=== PATIENT | female | born 1980 | race Caucasian/White ===

== ENCOUNTER → 2017-05-14 12:30 | Outpatient (CLI) | payer SELFPAY ==
[2017-05-14 14:01] LABS: Vitamin D,25 Hydroxy 19.1 ng/mL (19.95-100.01)
[2017-05-14 14:16] LABS: Thyroid Stim Hormone (TSH) 1.04 uIU/mL (0.358-3.74)
== END ==
PROVIDERS: Visit Provider Obstetrics & Gynecology
DX: R53.82 Chronic fatigue, unspecified (principal)
CPT/HCPCS: 36415; 82306; 84443

== ENCOUNTER → 2017-05-20 12:40 | Outpatient (CLI) | payer SELFPAY ==
--- NOTE | 2017-05-20 12:44 | HPBI_ITS ---
MAMMOGRAPHY - BILATERAL DIAGNOSTIC REASON FOR EXAM: Female, 37 years old. A multiple left excisional breast biopsy. Fullness of the lateral aspect of the left breast. PERTINENT HISTORY: Non-contributory. TECHNIQUE: Digital bilateral breast alissa (3D mammographic acquisition) in the CC and MLO projections. 2-D mediolateral oblique (MLO) and craniocaudad (CC) views of both breasts were obtained. CAD: Full Field Digital Mammography with Computer Added Detection was performed. COMPARISON: Comparison is made with prior outside examination dated February 07, 2015. FINDINGS: Breast Composition: The breasts are extremely dense, which lowers the sensitivity of mammography. There are no dominant masses or suspicious calcifications. No other significant abnormalities are identified. There has been no significant change since the prior study. HPBI/DIAG MAMM W/CAD, BILAT IMPRESSION: Stable bilateral diagnostic mammogram. With the patient's history of pain of the left breast, correlation with ultrasound is recommended. ASSESSMENT CATEGORY: BIRADS Category 0: Incomplete. Need additional imaging evaluation. A letter regarding these results will be sent to the patient by the facility within 30 days. Approximately 10% of breast cancers are not detected by mammography. A normal mammogram should not delay biopsy of a clinically suspicious abnormality. Electronically Signed: Carlos Christine MD at 20:11 EST Tel [phone], Service support ,
--- NOTE | 2017-05-20 12:44 | US_ITS ---
STUDY: ULTRASOUND BREAST - LEFT REASON FOR EXAM: Female, 37 years old. Palpable lump left breast. The patient is presently nursing. TECHNIQUE: Axial and longitudinal images of the LEFT breast were performed with a high resolution ultrasound transducer. COMPARISON: Comparison is made with prior mammograms performed earlier today. FINDINGS: LEFT Breast: The lateral aspect of the breast was examined by ultrasound. No solid or cystic mass lesion is seen. US/Breast Limited Unilateral IMPRESSION: Unremarkable sonographic examination of the left breast. ASSESSMENT CATEGORY: BIRADS Category 1: Negative. A letter regarding these results will be sent to the patient by the facility within 30 days. Electronically Signed: Carlos Christine MD at 19:40 EST Tel [phone], Service support ,
== END ==
PROVIDERS: Visit Provider Obstetrics & Gynecology
DX: N63.20 Unspecified lump in the left breast, unspecified quadrant (principal); N64.4 Mastodynia
CPT/HCPCS: 76642; 77062; 77066; G0279

== ENCOUNTER 2017-10-28 09:20 | Day surgery (SDC) | payer OTHER, SELFPAY ==
[2017-10-28 09:33] VITALS: BP 111/52; PULSE 93; RESP 14; TEMP 37; O2SAT 100; BMI 18.6
[2017-10-28 09:39] LABS: Internal QC Validated? YES +Cl - CLEAR BKGD; Pregnancy, Urine Negative Negative
--- NOTE | 2017-10-28 10:15 | COLBX_PTH ---
PATIENT: ASHLEY JEAN-BAPTISTE LOC: EN U#:[id number] AGE/SX: 37/F ROOM: RE10/28/[address]: Dr. Avelino Vaca MD : 1980 BED: DIS: 10/28/2017 SPEC #: [id number] RECD: 10/28/17 10:34 STATUS: ELPIDIO JONNY #: [id number] EMANUEL: 10/28/17 10:[address]: Avelino Vaca DEPT: SURGICAL PATHOLOGY RECD BY: Dawson Lee ENTERED: 10/28/17 12:08 SP TYPE: COLON BX OT DR: Dr. Suellen Johnson MD Tissues: COLON BIOPSY Procedures: Surgery Specimen Level IV HEADER OPERATION: Colonoscopy PRE-OP DIAGNOSIS: Rectal discharge TISSUE SUBMITTED: Random colonic biopsy MICROSCOPIC DIAGNOSIS Colon, random biopsy: Fragments of colonic mucosa, no pathologic diagnosis. SJ:sebastien 10/29/17 MICROSCOPIC DESCRIPTION Slides are reviewed. GROSS DESCRIPTION Received in fixative is one container labeled with the patient's name and designated random colonic biopsy. The specimen consists of multiple irregular fragments of light hernandes soft tissue that in aggregate measure 2 x 0.5 x 0.1 cm. The specimen is totally submitted in one cassette. / SJ:sebastien 10/28/17 TC:5 CPT: 51283
[2017-10-28 10:19] VITALS: BP 111/52; BP 89/61; PULSE 89; RESP 16; TEMP 36.7; O2SAT 99
--- NOTE | 2017-10-28 10:20 | PCM.OPRPT ---
Problem List (1) Rectal discharge Status: Acute Report of Operation Date of Procedure: 10/28/17 Pre-Operative Diagnosis: Mucus rectal discharge Post-Operative Diagnosis: Minimal scattered sigmoid diverticulosis. Grade 1-2 internal hemorrhoids. No gross active pathology Surgery/Procedure Performed:: Colonoscopy with random cold forcep biopsies Description of Surgical Findings:: Timeout and informed consent was obtained. 37-year-old female was taken to the endoscopy suite. She underwent monitored anesthesia care. Digital rectal exam performed. Normal external anus. Some mild grade 1-2 internal hemorrhoids. No mass lesions. Normal tone. Flexible colonoscope inserted the rectum advanced with tortuous sigmoid colon. The scope was then carefully and tediously advanced to the transverse colon into the ascending colon. With some slight transabdominal pressure the scope was advanced to the cecum. The cecum ileocecal valve area was nicely achieved. Bowel prep was good there was still liquid stool but that could be easily aspirated. The cecum ileocecal valve was nicely inspected the scope was carefully withdrawn from the ascending transverse and descending colon. The sigmoid colon was notable for some very minimal scattered diverticulosis. There is no evidence of acute inflammation. There is no evidence of any mucosal changes or discharge throughout the entire exam. The scope was retroflexed within the rectum mild internal hemorrhoidal changes noted but no active inflammation. It is of note that as the scope was withdrawn throughout the colon random colonic biopsies were obtained with cold forceps. Excess fluid and air was aspirated free the procedure was completed with the patient tolerating it well. Impression Minimal sigmoid diverticulosis. Grade 1-2 internal hemorrhoids. No evidence for etiology to rectal mucus discharge. Random colonic biopsies pending. Patient has not had a previous colonoscopy next screening colonoscopy would be due at age 52. Scope was inserted at 1002. The cecum was reached at 1008. The procedure was completed at 1014. Avelino Vaca M.D., F.A.C.S., cc: Dr. Suellen Johnson
[2017-10-28 10:25] VITALS: BP 111/52; BP 98/68; PULSE 87; RESP 16; O2SAT 100
[2017-10-28 10:29] VITALS: BP 101/64; BP 111/52; PULSE 89; RESP 16; O2SAT 100
[2017-10-28 10:36] VITALS: BP 111/52; BP 97/77; PULSE 92; RESP 16; O2SAT 100
[2017-10-28 10:47] VITALS: BP 111/52
== END 2017-10-28 11:24 | disposition home or self-care (01) ==
LOC: EN 09:21 → AC 09:21
PROVIDERS: Anesthesiology; Family Provider Family Medicine; PCP Family Medicine; Visit Provider Surgery
PROC: 0DJD8ZZ Inspection of Lower Intestinal Tract, Via Natural or Artificial Opening Endoscopic (ICD-10-PCS; CPT 45378; principal; 2017-10-28 10:10)
DX: K57.30 Diverticulosis of large intestine without perforation or abscess without bleeding (principal); K64.1 Second degree hemorrhoids; R19.8 Other specified symptoms and signs involving the digestive system and abdomen
CPT/HCPCS: 45380; 81025; 88305; J7120

== ENCOUNTER → 2018-01-06 14:12 | Outpatient (CLI) | payer OTHER, SELFPAY ==
--- NOTE | 2018-01-06 14:28 | BI_ITS ---
REASON FOR EXAM: Female, 37 years old. Right breast lump since Friday. PERTINENT HISTORY: Left breast excisional biopsy 2009, benign. May 2017 left breast palpable lump. Patient states left breast always feels larger and more lumpy than right breast. Last breast-feeding July 2017. Patient refused left mammogram same day per [employer]. TECHNIQUE: Digital examination. Mediolateral oblique (MLO) and craniocaudad (CC) views of both breasts were obtained. CAD: CAD performed COMPARISON: Mammogram 05/20/2017. FINDINGS: Breast Composition: The breasts are extremely dense, which lowers the sensitivity of mammography. There are no new left mammogram dominant masses or suspicious microcalcification cluster noted. No new asymmetric density, architecture distortion, adenopathy, skin thickening or nipple retraction noted. Left breast upper outer quadrant anterior third spot compression CC/MLO views including radiopaque triangle for the area of clinical concern show no focal mass density or abnormal microcalcification cluster. IMPRESSION: Incomplete mammogram, additional right breast targeted ultrasound imaging is recommended in the area of clinical concern. ASSESSMENT CATEGORY: BIRADS Category 0: Incomplete. Need additional imaging evaluation. A letter regarding these results will be sent to the patient by the facility within 30 days. FOLLOW UP RECOMMENDATION: Additional imaging as described above. Negative mammographic results should not deter biopsy as a palpable lesion if present should be followed based on clinical grounds and biopsy performed if clinically persistent for 3 months or increasing size. Approximately 10% of breast cancers are not detected by mammography. A normal mammogram should not delay biopsy of a clinically suspicious abnormality. Dense breast tissue may obscure neoplasm. Electronically Signed: Avelino Kinney, at 17:08 EDT Tel , Service support , BI/DIAG MAMM W/CAD, [facility]
--- NOTE | 2018-01-06 15:08 | US_ITS ---
STUDY: ULTRASOUND BREAST - RIGHT REASON FOR EXAM: Female, 37 years old. Left breast excisional biopsy 2009, benign. May 2017 left breast palpable lump. Patient states left breast always feels larger and more lumpy than right breast. Last breast-feeding July 2017. Patient refused left mammogram same day per [employer]. TECHNIQUE: Axial and longitudinal images of the RIGHT breast were performed with a high resolution ultrasound transducer. COMPARISON: No prior right breast ultrasound imaging available. Correlation prior same day mammogram 01/06/2018 and 05/20/2017. FINDINGS: RIGHT Breast: There is a lesion in the upper Outer quadrant. The lesion measures 1.0 x 1.0 x 0.5 cm in size. Clock notation: 11 o'clock position. Distance from nipple: 3.0 cm. Posterior Enhancement: No Posterior Shadowing: No Margins: Indistinct but smooth Echogenicity: Heterogeneous probably hypoechoic Compression effect on Shape: No change US/Breast Limited Unilateral IMPRESSION: Probably benign superficial right breast hypoechoic lesion as described. Recommend right mammogram and right breast targeted ultrasound repeat in 6 months for short-term interval follow-up of probably benign findings. If the patient is unduly concerned, MRI breasts may be more helpful to exclude any pathology in this patient with very dense breasts. ASSESSMENT CATEGORY: BIRADS Category 3: Probably Benign - Short-Interval Follow-up Suggested. A letter regarding these results will be sent to the patient by the facility within 30 days. Negative mammographic results should not deter biopsy as a palpable lesion if present should be followed based on clinical grounds and biopsy performed if clinically persistent for 3 months or increasing size. Approximately 10% of breast cancers are not detected by mammography. A normal mammogram should not delay biopsy of a clinically suspicious abnormality. Dense breast tissue may obscure neoplasm. Electronically Signed: Avelino Kinney, at 17:27 EDT Tel , Service support ,
== END ==
PROVIDERS: Family Provider Family Medicine; PCP Family Medicine; Visit Provider Obstetrics & Gynecology
DX: N63.10 Unspecified lump in the right breast, unspecified quadrant (principal)
CPT/HCPCS: 76642; 77061; 77065; G0279

== ENCOUNTER → 2018-04-29 09:31 | Outpatient (CLI) | payer OTHER, SELFPAY ==
[2018-04-24 14:00] VITALS: BMI 19.2
--- NOTE | 2018-04-29 09:35 | US_ITS ---
STUDY: ULTRASOUND BREAST - LEFT REASON FOR EXAM: Female, 38 years old. Palpable lump left breast. TECHNIQUE: Axial and longitudinal images of the LEFT breast were performed with a high resolution ultrasound transducer. COMPARISON: Comparison is made with prior mammogram done earlier in the day as well as prior sonogram of the left breast dated May 20, 2017. FINDINGS: LEFT Breast: The inferior portion of the breast was examined by ultrasound. There is homogeneous fibroglandular tissue. No solid or cystic mass lesion is seen. US/Breast Limited Unilateral IMPRESSION: Unremarkable sonogram of the left breast. ASSESSMENT CATEGORY: BIRADS Category 1: Negative. A letter regarding these results will be sent to the patient by the facility within 30 days. Electronically Signed: Carlos Christine MD at 11:01 EST , Service support ,
--- NOTE | 2018-04-29 09:35 | BI_ITS ---
MAMMOGRAPHY - UNILATERAL DIAGNOSTIC: LEFT BREAST REASON FOR EXAM: Female, 38 years old. Left breast thickening at the 7:00 position of the breast. Remote left excisional breast biopsy. PERTINENT HISTORY: Non-contributory. TECHNIQUE: Digital unilateral breast alissa (3D mammographic acquisition) in the CC and MLO projections. 2-D mediolateral oblique (MLO) and craniocaudad (CC) views of both breasts were obtained. CAD: Full Field Digital Mammography with Computer Added Detection was performed. COMPARISON: Comparison is made with prior mammogram dated January 06, 2018 and May 20, 2017. FINDINGS: Breast Composition: The breasts are extremely dense, which lowers the sensitivity of mammography. There are no dominant masses or suspicious calcifications. No other significant abnormalities are identified. There has been no significant change since the prior study. BI/DIAG MAMM W/CAD, UNILAT IMPRESSION: Stable unilateral diagnostic mammogram. With the patient's history of thickening in the left breast, correlation with ultrasound is recommended. ASSESSMENT CATEGORY: BIRADS Category 0: Incomplete. Need additional imaging evaluation. A letter regarding these results will be sent to the patient by the facility within 30 days. Approximately 10% of breast cancers are not detected by mammography. A normal mammogram should not delay biopsy of a clinically suspicious abnormality. Electronically Signed: Carlos Christine MD at 11:02 EST , Service support ,
== END ==
PROVIDERS: Family Provider Family Medicine; PCP Family Medicine; Referring Provider Obstetrics & Gynecology; Visit Provider Obstetrics & Gynecology
DX: N63.20 Unspecified lump in the left breast, unspecified quadrant (principal)
CPT/HCPCS: 76642; 77061; 77065; G0279

== ENCOUNTER → 2018-07-31 09:29 | Outpatient (CLI) | payer OTHER, SELFPAY ==
[2018-04-24 14:00] VITALS: BMI 19.2
--- NOTE | 2018-07-31 09:58 | US_ITS ---
STUDY: ULTRASOUND BREAST - RIGHT REASON FOR EXAM: Female, 38 years old. Right breast lump in the upper outer quadrant. TECHNIQUE: Axial and longitudinal images of the RIGHT breast were performed with a high resolution ultrasound transducer. COMPARISON: January 06, 2018. Images are not available. Report of examination only is available for review. FINDINGS: There is a 1.0 x 1.3 x 0.5 cm hypoechoic, ovoid focus in the right breast 11:00 position as identified 3 cm from the nipple. This lesion most likely corresponds to the lesion seen on the comparison sonography and is slightly larger as on comparison by report it measured 1.0 x 1.0 x 0.5 cm. There is no posterior enhancement. There is no posterior shadowing. The margins are relatively indistinct. There is no change with compression. This lesion is wider than it is tall. This finding is avascular. Adjacent to this is a existing lump there is a new, 1.0 x 1.0 x 0.4 cm ovoid hypoechoic solid mass that probably corresponds to the new palpable lump. This finding is identified at 11:00 position 4 cm from the nipple. There is no posterior enhancement. There is no posterior shadowing. This finding is avascular US/Breast Limited Unilateral IMPRESSION: The solid hypoechoic lesion in the 11:00 position identified 3 cm from the nipple is slightly larger currently when compared to report of comparison. Additionally, the margins are partially indistinct and angulated. Further evaluation with ultrasound-guided core biopsy is recommended. The new lump is seen sonographically adjacent to the existing and known mass but is at the 11:00 position located 4 cm from the nipple. The margins of this lesion are also partially indistinct with angulation. Further evaluation with ultrasound-guided core biopsy is recommended. ASSESSMENT CATEGORY: BIRADS Category 4A: Low suspicion for malignancy. A letter regarding these results will be sent to the patient by the facility within 30 days. Electronically Signed: Jaylen Ray MD at 11:42 EDT , Service support ,
--- NOTE | 2018-07-31 09:58 | BI_ITS ---
MAMMOGRAPHY - UNILATERAL DIAGNOSTIC: RIGHT BREAST REASON FOR EXAM: Female, 38 years old. New right breast mass in the anterior upper outer quadrant. Previously seen for lump in the subjacent region. PERTINENT HISTORY: Non-contributory. TECHNIQUE: Digital examination. Mediolateral oblique (MLO) and craniocaudad (CC) views of the breast were obtained. CAD: CAD was performed on this study. COMPARISON: January 06, 2018. FINDINGS: Breast Composition: The breasts are extremely dense, which lowers the sensitivity of mammography. There are no dominant masses or suspicious calcifications. No other significant abnormalities are identified. BI/DIAG MAMM W/CAD, UNILAT IMPRESSION: Stable unilateral diagnostic mammogram. No mass or architectural distortion adjacent or subjacent to the palpable abnormality markers. Sonography will be performed today for further evaluation. ASSESSMENT CATEGORY: BIRADS Category 0: Incomplete. Need additional imaging evaluation. A letter regarding these results will be sent to the patient by the facility within 30 days. FOLLOW-UP RECOMMENDATION: Ultrasound recommended. (I) Approximately 10% of breast cancers are not detected by mammography. A normal mammogram should not delay biopsy of a clinically suspicious abnormality. Electronically Signed: Jaylen Ray MD at 11:33 EDT , Service support ,
== END ==
PROVIDERS: Referring Provider Obstetrics & Gynecology; Visit Provider Obstetrics & Gynecology
DX: N63.11 Unspecified lump in the right breast, upper outer quadrant (principal)
CPT/HCPCS: 76642; 77065

== ENCOUNTER → 2018-08-12 13:41 | Outpatient (CLI) | payer OTHER, SELFPAY ==
[2018-08-04 09:35] VITALS: BMI 19.1
--- NOTE | 2018-08-12 | IMM_PTH ---
PATIENT: ASHLEY JEAN-BAPTISTE LOC: OPUS U#:[id number] AGE/SX: 44/F ROOM: RE08/12/[address]: Dr. Sumanth Maguire MD : 1980 BED: DIS: SPEC #: [id number] RECD: 08/14/18 14:18 STATUS: ELPIDIO REQ #: [id number] EMANUEL: 08/12/18 00:[address]: Sumanth Maguire DEPT: IMMUNOHISTOCHEMISTRY RECD BY: Diane Alicea ENTERED: 08/14/18 14:18 SP TYPE: IMMUNO OTHR DR: No Primary Care Phys Tissues: Right breast, NOS Procedures: Calponin-1(initial) P40 (add) PHYSICIAN & INSTITUTION [place] [id number] SPECIMEN INFORMATION: Tissue Source: Right breast biopsy Clinical Info: right breast mass Specimen Number: [id number] CPT code: 50919, 22707 METHODOLOGY: Deparaffinized sections of prefer/formalin-fixed tissue or PAP/DQ stained slides are incubated with monoclonal/polyclonal antibodies/oligonucleotide probes. Localization is made via biotin free immunoperoxidase method. Appropriate controls are performed and reacted as expected. Results on target cell population are indicated in the following table: RESULTS: ANTIBODY / CLONE RESULT P40 (BC28) positive with appropriate control Calponin-1 (FY855M) positive with appropriate control These tests were developed and their performance characteristics determined by [facility]. They may not have been cleared or approved by the U.S. Food and Drug Administration. The FDA has determined that such clearance or approval is not necessary. INTERPRETATION: Right breast, biopsy: The results of immunohistochemistry support a benign proliferative process. CE:sebastien 08/14/18
--- NOTE | 2018-08-12 | BRBX_PTH ---
PATIENT: ASHLEY JEAN-BAPTISTE LOC: OPUS U#:[id number] AGE/SX: 44/F ROOM: RE08/12/[address]: Dr. 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 CE:sebastien 08/14/18 COMMENT Immunohistochemistry ([id number]) supports the above diagnosis. Case has been reviewed in consultation with Dr. Amado who concurs with the above diagnosis. IDC:AM MICROSCOPIC DESCRIPTION Slides are reviewed. GROSS DESCRIPTION Received is one container labeled with the patient's name and not further designated. The specimen consists of a single core of hernandes tissue measuring 1 cm in length and 0.1 cm in average diameter. The specimen is totally submitted in one cassette. / AM:sebastien 08/13/18 TC:2 CPT: 33163
--- NOTE | 2018-08-12 13:44 | US_ITS ---
STUDY: ULTRASOUND BREAST - RIGHT REASON FOR EXAM: Female, 38 years old. Ultrasound guided breast biopsy. TECHNIQUE: Under direct sonographic guidance, the surgeon performed core biopsy of the 9.1 mm x 7.7 mm x 4.3 mm slightly irregular hypoechoic nodule at the 11:00 position of the breast. COMPARISON: None. FINDINGS: RIGHT Breast: The biopsy needle is seen within the suspected lesion. US/US Breast Biopsy 1st Lesion IMPRESSION: Successful ultrasound-guided core biopsy. ASSESSMENT CATEGORY: BIRADS Category 2: Benign. A letter regarding these results will be sent to the patient by the facility within 30 days. Electronically Signed: Carlos Christine, at 8:20 EDT , Service support ,
== END ==
PROVIDERS: Referring Provider Surgery; Visit Provider Surgery
DX: N60.81 Other benign mammary dysplasias of right breast (principal)
CPT/HCPCS: 19083; 88305; 88341; 88342

== ENCOUNTER → 2018-09-17 | Outpatient (CLI) | payer OTHER, SELFPAY ==
[2018-04-24 14:00] VITALS: BMI 19.2
[2018-08-04 09:35] VITALS: BMI 19.1
--- NOTE | 2018-09-17 14:00 | US_ITS ---
STUDY: ULTRASOUND OF THE FEMALE PELVIS REASON FOR EXAM: Female, 38 years old. Pain. LMP: September 11, 2018 TECHNIQUE: Transvaginal TECHNICAL QUALITY: Adequate. COMPARISON: None. FINDINGS: The uterus is anteverted and is in a midline position. The uterus measures 8.6 x 4.6 x 4.2 cm. Normal uterine cervix. The endometrium measures 2 mm in thickness, and is hyperechoic. There is no demonstrated endometrial mass. There is no demonstrated myometrial mass. I.U.D. - The patient does not have an I.U.D. The right ovary is visualized. The right ovary measures 3.0 x 2.1 x 2.0 cm. There is no right ovarian cyst or ovarian mass. There is no visualized right adnexal mass or complex lesion. There is normal arterial and normal venous vascularity. The left ovary is visualized. The left ovary measures 3.0 x 2.2 x 1.8 cm. There is no left ovarian cyst or ovarian mass. There is no visualized left adnexal mass or complex lesion. There is normal arterial and normal venous vascularity. There is mild fluid in the cul-de-sac. The pre void volume of the bladder was 394 ml. US/Pelvic (Non ) IMPRESSION: Normal female pelvis. Electronically Signed: Donta Hutchison MD at 9:58 EDT , Service support ,
--- NOTE | 2018-09-17 14:00 | US_ITS ---
STUDY: ULTRASOUND OF THE FEMALE PELVIS REASON FOR EXAM: Female, 38 years old. Pain. LMP: September 11, 2018 TECHNIQUE: Transvaginal TECHNICAL QUALITY: Adequate. COMPARISON: None. FINDINGS: The uterus is anteverted and is in a midline position. The uterus measures 8.6 x 4.6 x 4.2 cm. Normal uterine cervix. The endometrium measures 2 mm in thickness, and is hyperechoic. There is no demonstrated endometrial mass. There is no demonstrated myometrial mass. I.U.D. - The patient does not have an I.U.D. The right ovary is visualized. The right ovary measures 3.0 x 2.1 x 2.0 cm. There is no right ovarian cyst or ovarian mass. There is no visualized right adnexal mass or complex lesion. There is normal arterial and normal venous vascularity. The left ovary is visualized. The left ovary measures 3.0 x 2.2 x 1.8 cm. There is no left ovarian cyst or ovarian mass. There is no visualized left adnexal mass or complex lesion. There is normal arterial and normal venous vascularity. There is mild fluid in the cul-de-sac. The pre void volume of the bladder was 394 ml. US/Transvaginal Non- IMPRESSION: Normal female pelvis. Electronically Signed: Donta Hutchison MD at 9:58 EDT , Service support ,
== END | disposition home or self-care (01) ==
LOC: US 14:00
PROVIDERS: Family Provider Family Medicine; PCP Family Medicine; Referring Provider Obstetrics & Gynecology; Visit Provider Obstetrics & Gynecology
DX: R10.2 Pelvic and perineal pain (principal)
CPT/HCPCS: 76830; 76856; 93976

== ENCOUNTER → 2018-09-28 16:29 | Outpatient (CLI) | payer OTHER, SELFPAY ==
[2018-08-04 09:35] VITALS: BMI 19.1
[2018-09-28 16:31] LABS: Bacteria 0 SEEN /hpf (None Seen); Mucous, Urine 0 SEEN /hpf (<or=2+); Red Blood Cells-Urine 0 SEEN /hpf (0-5); White Blood Cells 0 SEEN /hpf (0-5)
[2018-09-28 17:50] LABS: Absolute Lymphocyte Count 2.62 X10^3/ul (0.83-4.51); Absolute Neutrophil Count 4.2 X10^3/uL (2.0-7.7); Basophil# 0.02 X10^3/uL; Basophil% 0.3 % (0-1); Eosinophil# 0.07 X10^3/uL; Eosinophils% 0.9 % (0-5); Hematocrit 40.7 % (37-47); Hemoglobin 13.4 g/dl (12.0-15.0); Lymphocyte # 2.62 X10^3/ul (4.0); Lymphocyte % 35.5 % (19-41); Mean Corp Hgb Conc 32.9 g/gl (32-36); Mean Corpuscular Hgb 28.9 pg (27.0-32.0); Mean Corpuscular Volume 87.7 fL (81-99); Mean Platelet Vol. 11.7 fl (6.2-12.0); Monocyte# 0.47 X10^3/uL; Monocyte% 6.4 % (0-10); Neutrophil # 4.19 X10^3/uL (2.7-7.7); Neutrophil % 56.9 % (47-70); Platelet Count 221 K/mm3 (150-450); RBC Distribution Width CV 12.7 % (11.6-14.6); RBC Distribution Width SD 40.7 fl (35.1-43.9); Red Blood Count 4.64 M/mm3 (4.2-5.4); White Blood Count 7.4 K/mm3 (4.4-11.0)
[2018-09-28 17:53] LABS: POSITIVE COUNT NO; POSITIVE DIFFERENTIAL NO; POSITIVE MORPHOLOGY NO
[2018-09-28 17:59] LABS: Color, Urine Yellow (Yellow); Glucose, Dipstick Normal (Normal); Ketone-Dipstick Negative (Negative); Leukocyte Esterase-Dipstick Negative /ul (Negative); Nitrite-Dipstick Negative (Negative); Occult Blood-Urine Negative /ul (Negative); Protein-Dipstick Negative (Negative); Urine Bilirubin Dipstick Negative (Negative); Urine Clarity Clear (Clear); Urine Urobilinogen Normal (Normal)
[2018-09-28 18:19] LABS: Anion Gap 8 (5-15); BUN 18 mg/dL (7-18); BUN/Creat Ratio 21.2 RATIO (10-20); Calcium,Total 9.4 mg/dL (8.5-10.1); Chloride 102 mmol/L (98-107); Creatinine, Serum 0.85 mg/dL (0.55-1.02); EST Glomerular Filtration Rate 80 mL/min (>60); Est Glom Filt Rate - Afr Amer 97 mL/min (>60); Glucose 84 mg/dL (74-106); Potassium 3.3 mmol/L (3.5-5.1); Sodium Level 141 mmol/L (136-145)
[2018-09-28 18:44] LABS: Squamous Epithelial Cells - UA 0-5 SEEN /hpf (5-10)
== END ==
PROVIDERS: Family Provider Family Medicine; PCP Family Medicine; Visit Provider Family Medicine
DX: R10.9 Unspecified abdominal pain (principal)
CPT/HCPCS: 36415; 80048; 81001; 85025

== ENCOUNTER → 2018-10-30 16:50 | Outpatient (CLI) | payer OTHER, SELFPAY ==
[2018-08-04 09:35] VITALS: BMI 19.1
--- NOTE | 2018-10-30 16:56 | CT_ITS ---
STUDY: CT ABDOMEN AND PELVIS WITH CONTRAST REASON FOR EXAM: Female, 38 years old. Right lower quadrant pain. RADIATION DOSAGE (If Supplied By Facility): CTDIvol = ( 7.15 ) mGy, DLP = ( 510.93 ) mGycm TECHNIQUE: Transaxial images were obtained from the dome of the diaphragm to the symphysis pubis with oral contrast. 80ML IV/Oral Isovue 300 was administered. Sagittal and coronal images were reconstructed. Individualized dose optimization techniques were used for this CT. COMPARISON: None. FINDINGS: The visualized lung bases are unremarkable. The visualized portions of the heart are within normal limits. Normal liver. Normal gallbladder and extrahepatic biliary system. Normal spleen. Normal pancreas. Normal bilateral adrenal glands. Normal right kidney. Normal left kidney. Normal visualized stomach. Normal small intestine. Normal colon. The appendix is visualized and appears normal. Normal abdominal aorta. Normal inferior vena cava. Normal retroperitoneum. Normal urinary bladder. Uterus is anteverted and tilted to the right. It is somewhat heterogenous in enhancement possibility of fibroids cannot BE completely ruled out. There is increased vascularity in both broad ligaments. There are follicles in both ovaries. There is no pelvic lymphadenopathy. No free air or free fluid is seen within the peritoneal cavity. Normal abdominal wall. Normal osseous structures. CT/Abdomen/Pelvis WITH Contrast IMPRESSION: 1. Normal appendix. 2. Heterogenous uterus with increased vascularity in the broad ligaments. Question pelvic congestion. 3. Bilateral ovarian follicles without mass or cyst. 4. No other evidence of intra-abdominal or pelvic abnormality. Electronically Signed: Vikas Santiago DO at 18:30 EDT Tel [phone], Service support ,
== END ==
PROVIDERS: Family Provider Family Medicine; PCP Family Medicine; Referring Provider Family Medicine; Visit Provider Family Medicine
DX: R10.31 Right lower quadrant pain (principal); R11.0 Nausea; R14.1 Gas pain
CPT/HCPCS: 74177; Q9967

== ENCOUNTER → 2018-11-11 14:00 | Outpatient (CLI) | payer OTHER, SELFPAY ==
[2018-08-04 09:35] VITALS: BMI 19.1
--- NOTE | 2018-11-11 14:02 | US_ITS ---
STUDY: ULTRASOUND TRANSVAGINAL CLINICAL: Female, 38 years old. Pelvic pain. TECHNIQUE: Transvaginal and transabdominal (Transvaginal imaging performed for enhanced visualization of uterus and endometrium, and posterior adnexal structures). COMPARISON: None. FINDINGS: Anteverted uterus, flexed slightly towards the right, measuring 10.5 x 6.6 x 4.7 cm. Normal myometrium. Somewhat prominent subserosal uterine veins. Endometrium 12 mm, normal echotexture. Nabothian cyst of the cervix. There is no free fluid. There is no adnexal mass or suspicious cyst. There is prominent vascularity of the adnexa bilaterally giving the impression of engorged adnexal veins. The right ovary measures 30 x 20 x 16 mm and the left ovary 21 23 x 13 mm. Each exhibits small facility follicles with normal vascularity. US/Transvaginal Non- IMPRESSION: Normal features of the myometrium, endometrium, ovaries. Prominent adnexal vessels, and prominent subserosal uterine vessels in a pattern that may reflect pelvic venous congestion. Electronically Signed: Raudel Salgado MD at 15:31 EDT Tel , Service support ,
--- NOTE | 2018-11-11 14:02 | US_ITS ---
STUDY: ULTRASOUND TRANSVAGINAL CLINICAL: Female, 38 years old. Pelvic pain. TECHNIQUE: Transvaginal and transabdominal (Transvaginal imaging performed for enhanced visualization of uterus and endometrium, and posterior adnexal structures). COMPARISON: None. FINDINGS: Anteverted uterus, flexed slightly towards the right, measuring 10.5 x 6.6 x 4.7 cm. Normal myometrium. Somewhat prominent subserosal uterine veins. Endometrium 12 mm, normal echotexture. Nabothian cyst of the cervix. There is no free fluid. There is no adnexal mass or suspicious cyst. There is prominent vascularity of the adnexa bilaterally giving the impression of engorged adnexal veins. The right ovary measures 30 x 20 x 16 mm and the left ovary 21 23 x 13 mm. Each exhibits small facility follicles with normal vascularity. US/Pelvic (Non ) IMPRESSION: Normal features of the myometrium, endometrium, ovaries. Prominent adnexal vessels, and prominent subserosal uterine vessels in a pattern that may reflect pelvic venous congestion. Electronically Signed: Raudel Salgado MD at 15:31 EDT Tel , Service support ,
== END ==
PROVIDERS: Family Provider Family Medicine; PCP Family Medicine; Referring Provider Obstetrics & Gynecology; Visit Provider Obstetrics & Gynecology
DX: R10.2 Pelvic and perineal pain (principal)
CPT/HCPCS: 76830; 76856; 93976

== ENCOUNTER → 2019-03-17 09:02 | Outpatient (CLI) | payer OTHER, SELFPAY ==
[2018-08-04 09:35] VITALS: BMI 19.1
--- NOTE | 2019-03-17 09:05 | BI_ITS ---
MAMMOGRAPHY - BILATERAL SCREENING REASON FOR EXAM: Female, 38 years old. Routine annual screening examination. PERTINENT HISTORY: Recent ultrasound-guided right breast biopsy. TECHNIQUE: Digital bilateral breast harpal (3D mammographic acquisition) in the CC and MLO projections. 2-D mediolateral oblique (MLO) and craniocaudad (CC) views of both breasts were obtained. CAD: Full Field Digital Mammography with Computer Added Detection was performed. COMPARISON: Comparison is made with prior mammogram dated July 31, 2018. FINDINGS: Breast Composition: The breasts are extremely dense, which lowers the sensitivity of mammography. There are no dominant masses or suspicious calcifications. A tissue clip marker is seen in the upper lateral aspect of the right breast. No other significant abnormalities are identified. There has been no significant change since the prior study. BI/SCREEN MAMM (CAD) W/HARPAL BILAT IMPRESSION: Stable bilateral screening mammogram. Yearly follow-up mammogram recommended. (A) ASSESSMENT CATEGORY: BIRADS Category 2: Benign. A letter regarding these results will be sent to the patient by the facility within 30 days. Approximately 10% of breast cancers are not detected by mammography. A normal mammogram should not delay biopsy of a clinically suspicious abnormality. [id number] Electronically Signed: Carlos Christine, at 10:58 EST , Service support ,
== END ==
PROVIDERS: Family Provider Family Medicine; PCP Family Medicine; Referring Provider Obstetrics & Gynecology; Visit Provider Obstetrics & Gynecology
DX: Z12.31 Encounter for screening mammogram for malignant neoplasm of breast (principal)
CPT/HCPCS: 77063; 77067

== ENCOUNTER → 2019-05-11 14:56 | Outpatient (CLI) | payer OTHER, SELFPAY ==
[2018-08-04 09:35] VITALS: BMI 19.1
--- NOTE | 2019-05-11 15:00 | US_ITS ---
STUDY: ULTRASOUND BREAST - LEFT REASON FOR EXAM: Female, 39 years old. Palpable lump left breast. TECHNIQUE: Axial and longitudinal images of the LEFT breast were performed with a high resolution ultrasound transducer. # OF IMAGES: 12 COMPARISON: Comparison is made with prior mammogram dated March 17, 2019 and prior sonogram of the left breast dated April 29, 2018. FINDINGS: LEFT Breast: The left axillary region was examined by ultrasound. This corresponds to the palpable abnormality. There is a 7 mm x 7 mm x 3 mm well-defined hypoechoic nodule with a central area of increased echotexture in keeping with a normal appearing lymph node. US/Breast Limited Unilateral IMPRESSION: The palpable abnormality corresponds to a 7 mm x 7 mm x 3 mm benign appearing lymph node. Routine mammographic follow-up is recommended. ASSESSMENT CATEGORY: BIRADS Category 2: Benign. A letter regarding these results will be sent to the patient by the facility within 30 days. Electronically Signed: Carlos Christine, at 14:04 EST , Service support ,
== END ==
PROVIDERS: PCP Family Medicine; Referring Provider Obstetrics & Gynecology; Visit Provider Obstetrics & Gynecology
DX: N63.20 Unspecified lump in the left breast, unspecified quadrant (principal)
CPT/HCPCS: 76642

== ENCOUNTER → 2019-06-17 | Outpatient (CLI) | payer OTHER, SELFPAY ==
[2018-08-04 09:35] VITALS: BMI 19.1
[2019-06-17 18:04] LABS: Bacteria 0 SEEN /hpf (None Seen); Red Blood Cells-Urine 0 SEEN /hpf (0-5)
[2019-06-17 18:20] LABS: Color, Urine Yellow (Yellow); Glucose, Dipstick Normal (Normal); Ketone-Dipstick Negative (Negative); Leukocyte Esterase-Dipstick Negative /ul (Negative); Nitrite-Dipstick Negative (Negative); Occult Blood-Urine 10 /ul (Negative); Protein-Dipstick Negative (Negative); Specific Gravity, Urine 1.015 (1.002-1.030); Urine Bilirubin Dipstick Negative (Negative); Urine Clarity Sl. Cloudy (Clear); Urine Urobilinogen Normal (Normal)
[2019-06-17 18:31] LABS: Mucous, Urine 2+ /hpf (<or=2+)
[2019-06-17 18:33] LABS: Squamous Epithelial Cells - UA 0-5 SEEN /hpf (5-10); Transitional Epithelial - Ur 0 SEEN /hpf (0-5); White Blood Cells 0-5 SEEN /hpf (0-5)
== END | disposition home or self-care (01) ==
LOC: LABSPEC 17:05
PROVIDERS: PCP Family Medicine
DX: R31.0 Gross hematuria (principal)
CPT/HCPCS: 81001; 87086

== ENCOUNTER → 2020-03-21 09:27 | Outpatient (CLI) | payer OTHER, SELFPAY ==
[2018-08-04 09:35] VITALS: BMI 19.1
--- NOTE | 2020-03-21 09:31 | US_ITS ---
STUDY: ULTRASOUND BREAST - LEFT REASON FOR EXAM: Female, 39 years old. Left axillary lump. TECHNIQUE: Axial and longitudinal images of the LEFT breast were performed with a high resolution ultrasound transducer. # OF IMAGES: 15 COMPARISON: Comparison is made with prior mammogram done earlier in the day as well as prior sonogram of the left breast dated 05/11/2019. FINDINGS: LEFT Breast: Once again, the left axillary region was examined by ultrasound. 3 small benign appearing axillary lymph nodes are seen. The largest measures 1.7 cm x 1.2 cm x 0.6. US/Breast Limited Unilateral IMPRESSION: 3 small benign appearing left axillary lymph nodes. The largest measures 1.7 cm x 1.2 cm x 0.6. ASSESSMENT CATEGORY: BIRADS Category 2: Benign. A letter regarding these results will be sent to the patient by the facility within 30 days. Electronically Signed: Carlos Christine, at 10:48 EST , Service support ,
--- NOTE | 2020-03-21 09:31 | BI_ITS ---
MAMMOGRAPHY - BILATERAL DIAGNOSTIC REASON FOR EXAM: Female, 39 years old. Left axillary breast lump. Remote left excisional breast biopsy. PERTINENT HISTORY: Non-contributory. TECHNIQUE: Digital bilateral breast alissa (3D mammographic acquisition) in the CC and MLO projections. 2-D mediolateral oblique (MLO) and craniocaudad (CC) views of both breasts were obtained. CAD: Full Field Digital Mammography with Computer Added Detection was performed. COMPARISON: Comparison is made with prior study dated 03/17/2019 and 07/31/2018. FINDINGS: Breast Composition: The breasts are extremely dense, which lowers the sensitivity of mammography. There are no dominant masses or suspicious calcifications. A tissue clip marker is seen in the upper lateral aspect of the right breast. No other significant abnormalities are identified. There has been no significant change since the prior study. BI/DIAG MAMM W/CAD, BILAT IMPRESSION: Stable bilateral diagnostic mammogram. With the patient''s history of a left axillary breast lump, correlation with ultrasound is recommended. ASSESSMENT CATEGORY: BIRADS Category 0: Incomplete. Need additional imaging evaluation. A letter regarding these results will be sent to the patient by the facility within 30 days. Approximately 10% of breast cancers are not detected by mammography. A normal mammogram should not delay biopsy of a clinically suspicious abnormality. Electronically Signed: Carlos Christine, at 10:41 EST , Service support ,
== END ==
PROVIDERS: PCP Registered Nurse; Referring Provider Obstetrics & Gynecology; Visit Provider Obstetrics & Gynecology
DX: N63.32 Unspecified lump in axillary tail of the left breast (principal)
CPT/HCPCS: 76642; 77062; 77066; G0279

== ENCOUNTER → 2023-03-19 | Outpatient (CLI) | payer BC, SELFPAY ==
[2023-03-19 10:22] LABS: Absolute Lymphocyte Count 1.63 X10^3/uL (0.83-4.51); Absolute Neutrophil Count 1.5 X10^3/uL (2.0-7.7); Basophil# 0.02 X10^3/uL; Basophil% 0.6 % (0-1); Eosinophil# 0.06 X10^3/uL; Eosinophils% 1.7 % (0-5); Hematocrit 42.1 % (37-47); Hemoglobin 13.7 g/dL (12.0-15.0); Lymphocyte # 1.63 X10^3/ul (0.83-4.51); Lymphocyte % 45.5 % (19-41); Mean Corp Hgb Conc 32.5 g/dL (32-36); Mean Corpuscular Hgb 28.4 pg (27.0-32.0); Mean Corpuscular Volume 87.2 fL (81-99); Mean Platelet Vol. 10.8 fl (6.2-12.0); Monocyte# 0.35 X10^3/uL; Monocyte% 9.8 % (0-10); NRBC Flagged by Analyzer 0 % (0-5); Neutrophil # 1.52 X10^3/uL (2.7-7.7); Neutrophil % 42.4 % (47-70); Platelet Count 221 K/mm3 (150-450); RBC Distribution Width CV 12.9 % (11.6-14.6); RBC Distribution Width SD 40.7 fl (35.1-43.9); Red Blood Count 4.83 M/mm3 (4.2-5.4); White Blood Count 3.6 K/mm3 (4.4-11.0)
[2023-03-19 10:47] LABS: Vitamin B12 534 pg/mL (211-911); Vitamin D,25 Hydroxy 81.4 ng/mL
[2023-03-19 11:00] LABS: AST(SGOT) 20 U/L (15-37); Alanine Aminotransfer ALT/SGPT 25 U/L (13-56); Albumin, Serum 3.9 g/dL (3.2-5.0); Alkaline Phosphatase 56 U/L (45-117); Anion Gap 4 (5-15); BUN 22 mg/dL (7-18); Calcium,Total 9.4 mg/dL (8.5-10.1); Chloride 106 mmol/L (98-107); Cholesterol 193 mg/dL (200); Creatinine, Serum 0.85 mg/dL (0.55-1.02); EST Glomerular Filtration Rate 79 mL/min (>60); Est Glom Filt Rate - Afr Amer 95 mL/min (>60); Globulin 3.9 g/dL (2.2-4.2); Glucose 86 mg/dL (74-106); High Density Lipoprotein 93 mg/dL; Potassium 3.8 mmol/L (3.5-5.1); Protein, Total 7.8 g/dL (6.4-8.2); Sodium Level 139 mmol/L (136-145); T4 Free Direct 0.86 ng/dL (0.76-1.46); Thyroid Stim Hormone (TSH) 1.04 uIU/mL (0.358-3.74); Triglycerides 52 mg/dL; Very Low Density Lipoprotein 10 mg/dL (5-40)
== END | disposition home or self-care (01) ==
PROVIDERS: PCP Nurse Practitioner Family; Referring Provider Nurse Practitioner Family; Visit Provider Nurse Practitioner Family
DX: Z00.01 Encounter for general adult medical examination with abnormal findings (principal); E55.9 Vitamin D deficiency, unspecified; E03.9 Hypothyroidism, unspecified; E53.8 Deficiency of other specified B group vitamins
CPT/HCPCS: 36415; 80053; 80061; 82306; 82607; 84439; 84443; 85025

== ENCOUNTER → 2023-04-05 | Outpatient (CLI) | payer BC, SELFPAY ==
--- NOTE | 2023-04-05 09:05 | US_ITS ---
STUDY: ABDOMINAL ULTRASOUND REASON FOR EXAM: Female, 43 years old. ABDOMEN PAIN TECHNIQUE: Transabdominal ultrasound was performed with real-time and static pizarro scale imaging. TECHNICAL QUALITY: Adequate. COMPARISON: None. FINDINGS: Liver: The liver measures 13.1 cm. There is normal echogenicity of the liver. The bile ducts are within normal limits. There is hepatic color flow. The direction of portal flow is hepatopetal. There is no demonstrated mass lesion. Portal vein measurement: Gallbladder: Normal distended gallbladder. The gallbladder wall measures 2 mm. There is a negative sonographic Augustine''s sign. There is no pericholecystic fluid. There are no gallstones. Common Bile Duct (C.B.D.): The common bile duct measures 4 mm. Pancreas: Normal size of the head, body and tail of the pancreas. There is normal echogenicity of the pancreas. There is no demonstrated pancreatic mass or cyst. Spleen: Normal size of the spleen. The spleen measures 8.8 cm. Right Kidney: Normal size of the right kidney. The right kidney measures 10.0 cm. Normal renal cortex. The right cortex measures 0.8 cm. There is no demonstrated renal mass or cyst. There is no right hydronephrosis. Left Kidney: Normal size of the left kidney. The left kidney measures 9.7 cm. Normal renal cortex. The left cortex measures 1.3 cm. There is no demonstrated renal mass or cyst. There is no left hydronephrosis. Aorta: No abdominal aortic aneurysm. I.V.C.: The IVC is patent. There is no ascites. US/Abdomen Complete IMPRESSION: Normal abdominal ultrasound examination. Electronically Signed: Raudel Zimmerman MD at 22:24 EST ,
--- OUTSIDE RECORDS SUMMARY | 2023-04-05 09:18 | XMS RPT_ITS | CCD ---
Author Name Unknown Address [address] [place] [address] Organization [facility] Care Team Providers Care Supervisor [employer] Name Role Phone Haagen PATIENT ACCESS COORDINATOR.DIVING FISHER, Heather Primary Care Provider PHYSICIAN, NONE Primary Care Physician Unavailab le Mounika PATIENT ACCESS COORDINATOR.DIVING FISHER, Heather Primary Care Provider Haagen PATIENT ACCESS COORDINATOR.DIVING FISHER, [facility] Primary Care Provider Haagen PATIENT ACCESS COORDINATOR.DIVING FISHER, [facility] Primary Care Provider JOHNNA LOPEZ Attending Unavailable [place], HEATHER Primary Care Unavailable SONYA ARCINIEGA Referring Unavailable [facility] Primary Care Unavailable HEATHER RIBERA Attending Unavailable [facility], [facility] Primary Care Unavailable CHANELL AMARAL Attending Unavailable [facility], HEATHER Primary Care Unavailable JOHNNA LOPEZ Referring Unavailable [place], HEATHER Primary Care Unavailable JOHNNA LOPEZ Referring Unavailable [place], HEATHER Primary Care Unavailable Allergies Allergy Classification Reported Allergen(s) Allergy Type Date of Onset Reaction(s) Facility (20 sources) Sulfamethoxazole / Trimethoprim; Translations: [SULFAMETHOXAZOLE-TR IMETHOPRIM] Drug Allergy 6 [facility] Work Phone: (20 sources) Sulfonamides (Antibiotic); Translations: [SULFA (SULFONAMIDE ANTIBIOTICS)] Propensity to adverse reactions 8 [facility] Work Phone: Medications Current Medications Medication Drug Class(es) Dates Sig (Normalized) Sig (Original) DHEA vaginal suppository 13 mg (CPD) (8 sources) Start: 11-06-2021 End: 02-04-2022 DHEA vaginal suppository 13 mg (CPD) Indications: Genitourinary syndrome of menopause , Hypoactive sexual desire disorder Unwrap and insert one suppository vaginally daily at bedtime. 90 Suppository 3 11/06/2021 02/04/2022 Active Completed/Discontinued Medications Medication Drug Class(es) Dates Sig (Normalized) Sig (Original) acetaminophen 300 mg / butalbital 50 mg / caffeine 40 mg oral capsule (5 sources) Barbiturate, Central Nervous System Stimulant, Methylxanthine Start: 10-04-2021 End: 11-06-2021 take 1 capsule by mouth every four hours as needed for headache and headache acetaminophen 300 mg-caffeine 40 mg-butalbital 50 mg (FIORICET) per capsule Indications: Mixed headache Take 1 capsule by mouth every 4 hours as needed. 20 capsule 0 10/04/2021 11/06/2021 Discontinued Problems Active Problems Problem Classification Problem Date Documented Date Episodic/Chronic Abdominal pain (1 source) Right lower quadrant pain; Translations: [Right lower quadrant pain] 01-15-2023 Episodic Anxiety disorders (2 sources) Acute stress disorder; Translations: [Acute stress reaction] Chronic Headache; including migraine (1 source) Migraine with aura; Translations: [Migraine with aura, not intractable, without status migrainosus] Chronic Headache; including migraine (1 source) Headache; Translations: [Mixed headache] Episodic Immunizations and screening for infectious disease (4 sources) Patient encounter status; Translations: [Encounter for screening for human papillomavirus (HPV)] Episodic Menopausal disorders (20 sources) Genitourinary syndrome of menopause; Translations: [Other specified menopausal and perimenopausal disorders] Onset: 10-12-2020 Chronic Menstrual disorders (1 source) Primary amenorrhea; Translations: [Primary amenorrhea] Onset: 02-19-2022 Chronic Miscellaneous mental health disorders (20 sources) Lack or loss of sexual desire; Translations: [Hypoactive sexual desire disorder] Onset: 10-12-2020 10-12-2020 Chronic Other connective tissue disease (1 source) Swelling of finger ; Translations: [Other specified soft tissue disorders] Episodic Other female genital disorders (2 sources) Abnormal uterine bleeding; Translations: [Abnormal uterine and vaginal bleeding, unspecified] 12-24-2022 Chronic Other female genital disorders (1 source) Abnormal uterine and vaginal bleeding, unspecified; Translations: [Abnormal uterine bleeding] Onset: 01-02-2023 Chronic Other non-traumatic joint disorders (1 source) Bilateral pain of joint of hands; Translations: [Pain in joints of right hand] Episodic Other screening for suspected conditions (not mental disorders or infectious disease) (5 sources) Mammographic breast tissue appearance; Translations: [Inconclusive mammogram] Onset: 02-19-2022 Episodic Other skin disorders (1 source) Acne; Translations: [Acne, unspecified] Episodic Residual codes; unclassified (1 source) Obstructive sleep apnea syndrome; Translations: [Obstructive sleep apnea (adult) (pediatric)] Chronic Spondylosis; intervertebral disc disorders; other back problems (1 source) Chronic low back pain; Translations: [Chronic right-sided low back pain, unspecified whether sciatica present] Episodic Past or Other Problems Problem Classification Problem Date Documented Date Episodic/Chronic Bacterial infection; unspecified site (14 sources) Bacteria present; Translations: [Streptococcus, group B, as the cause of diseases classified elsewhere] Onset: 04-04-2016 04-04-2016 Episodic Menopausal disorders (20 sources) Drug therapy status; Translations: [Hormone replacement therapy] Onset: 10-12-2020 10-12-2020 Episodic Other complications of (15 sources) Benign gestational thrombocytopenia; Translations: [Other diseases of the blood and blood-forming organs and certain disorders involving the immune mechanism complicating , third trimester] Onset: 02-07-2016 03-27-2021 Episodic Other hematologic conditions (15 sources) History of thrombocytopenia; Translations: [Personal history of diseases of the blood and blood-forming organs and certain disorders involving the immune mechanism] Onset: 09-21-2015 03-26-2021 Episodic Other infections; including parasitic (7 sources) History of sexually transmitted disease; Translations: [Personal history of other infectious and parasitic diseases] Onset: 09-21-2015 03-26-2021 Episodic Other lower respiratory disease (20 sources) Snoring; Translations: [Snoring] Onset: 10-12-2020 10-12-2020 Episodic Other non-traumatic joint disorders (1 source) Pain in joints of right hand; Translations: [Joint pain in both hands] Onset: 02-19-2022 Episodic Other non-traumatic joint disorders (1 source) Pain in joints of left hand; Translations: [Joint pain in both hands] Onset: 02-19-2022 Episodic Other and delivery including normal (14 sources) Normal ; Translations: [Encounter for supervision of normal , unspecified, third trimester] Onset: 02-02-2016 03-27-2021 Episodic Residual codes; unclassified (14 sources) H/O: depression; Translations: [Personal history of other complications of , childbirth and the puerperium] Onset: 09-21-2015 03-26-2021 Episodic Results Test Name Value Interpretation Reference Range Facil ity Vital Signs Date Time Vital Sign Value Performing Clinician Maxx duenas 01-15-2023 09:49-0400 Body weight 52.53 kg Chanell Podlogar PATIENT ACCESS COORDINATOR.DIVING FISHER Work Phone: [facility] 01-15-2023 09:49-0400 Diastolic blood pressure 78 mm[Hg] Chanell Podlogar PATIENT ACCESS COORDINATOR.DIVING FISHER Work Phone: [facility] 01-15-2023 09:49-0400 Heart rate 83 /min Chanell Podlogar PATIENT ACCESS COORDINATOR.DIVING FISHER Work Phone: [facility] 01-15-2023 09:49-0400 Respiratory rate 16 /min Chanell Podlogar PATIENT ACCESS COORDINATOR.DIVING FISHER Work Phone: [facility] 01-15-2023 09:49-0400 SaO2% (BldA) [Mass fraction] 99 % Chanell Podlogar PATIENT ACCESS COORDINATOR.DIVING FISHER Work Phone: [facility] 01-15-2023 09:49-0400 Systolic blood pressure 104 mm[Hg] Chanell Podlogar PATIENT ACCESS COORDINATOR.DIVING FISHER Work Phone: [facility] 04-02-2022 09:47-0500 Body height 160 cm Johnna Lopez MD Work Phone: [facility] 04-02-2022 09:47-0500 Body weight 51.66 kg Johnna Lopez MD Work Phone: [facility] 04-02-2022 09:47-0500 Diastolic blood pressure 60 mm[Hg] Johnna Lopez MD Work Phone: [facility] 04-02-2022 09:47-0500 Systolic blood pressure 92 mm[Hg] Johnna Lopez MD Work Phone: [facility] 01-10-2022 11:00-0400 Body height 160 cm Sonya Arciniega MD Work Phone: [facility] 01-10-2022 11:00-0400 Body weight 48.99 kg Sonya Arciniega MD Work Phone: [facility] 01-10-2022 11:00-0400 Diastolic blood pressure 79 mm[Hg] Sonya Arciniega MD Work Phone: [facility] 01-10-2022 11:00-0400 Heart rate 79 /min Sonya Arciniega MD Work Phone: [facility] 01-10-2022 11:00-0400 SaO2% (BldA) [Mass fraction] 100 % Sonya Arciniega MD Work Phone: [facility] 01-10-2022 11:00-0400 Systolic blood pressure 117 mm[Hg] Sonya Arciniega MD Work Phone: [facility] 11-27-2021 11:05-0400 Diastolic blood pressure 90 mm[Hg] Heather Haagen PATIENT ACCESS COORDINATOR.DIVING FISHER Work Phone: [facility] 11-27-2021 11:05-0400 Heart rate 77 /min Heather Haagen PATIENT ACCESS COORDINATOR.DIVING FISHER Work Phone: [facility] 11-27-2021 11:05-0400 Respiratory rate 18 /min Heather Haagen PATIENT ACCESS COORDINATOR.DIVING FISHER Work Phone: [facility] 11-27-2021 11:05-0400 SaO2% (BldA) [Mass fraction] 98 % Heather Haagen PATIENT ACCESS COORDINATOR.DIVING FISHER Work Phone: [facility] 11-27-2021 11:05-0400 Systolic blood pressure 118 mm[Hg] Heather Haagen PATIENT ACCESS COORDINATOR.DIVING FISHER Work Phone: [facility] 11-06-2021 14:27-0400 Body height 160 cm Addison Juarez MD Work Phone: [facility] 11-06-2021 14:27-0400 Body weight 49.9 kg Addison Juarez MD Work Phone: [facility] 11-06-2021 14:27-0400 Diastolic blood pressure 60 mm[Hg] Addison Juarez MD Work Phone: [facility] 11-06-2021 14:27-0400 Systolic blood pressure 90 mm[Hg] Addison Juarez MD Work Phone: [facility] 11-01-2021 16:02-0400 Body weight 49.44 kg Edie Kemp MD Work Phone: [facility] 11-01-2021 16:02-0400 Diastolic blood pressure 68 mm[Hg] Edie Kemp MD Work Phone: [facility] 11-01-2021 16:02-0400 Systolic blood pressure 100 mm[Hg] Edie Kemp MD Work Phone: [facility] 10-04-2021 15:12-0400 Body temperature 99.3 [degF] NA Medel PA-C Work Phone: [facility] 10-04-2021 15:12-0400 Body weight 47.17 kg NA Medel PA-C Work Phone: [facility] 10-04-2021 15:12-0400 Diastolic blood pressure 58 mm[Hg] NA Medel PA-C Work Phone: [facility] 10-04-2021 15:12-0400 Heart rate 103 /min NA Medel PA-C Work Phone: [facility] 10-04-2021 15:12-0400 Respiratory rate 18 /min NA Medel PA-C Work Phone: [facility] 10-04-2021 15:12-0400 SaO2% (BldA) [Mass fraction] 100 % NA Medel PA-C Work Phone: [facility] 10-04-2021 15:12-0400 Systolic blood pressure 90 mm[Hg] NA Medel PA-C Work Phone: [facility] 09-06-2021 [id number] Body weight 47.99 kg Thomas Vigil MD Work Phone: [facility] 09-06-2021 16:11-0400 Diastolic blood pressure 60 mm[Hg] Thomas Vigil MD Work Phone: [facility] 09-06-2021 16:11-0400 Heart rate 79 /min Thomas Vigil MD Work Phone: [facility] 09-06-2021 16:11-0400 Respiratory rate 16 /min Thomas Vigil MD Work Phone: [facility] 09-06-2021 16:11-0400 SaO2% (BldA) [Mass fraction] 97 % Thomas Vigil MD Work Phone: [facility] 09-06-2021 16:11-0400 Systolic blood pressure 104 mm[Hg] Thomas Vigil MD Work Phone: [facility] Encounters Encounter Date Encounter Type Care Provider Facility Start: 01-15-2023 End: 01-15-2023 ambulatory CHANELL PODLOGAR Facility:[facility] Start: 01-15-2023 End: 01-15-2023 Patient encounter procedure Chanell Podlogar PATIENT ACCESS COORDINATOR.DIVING FISHER Work Phone: [facility] Procedures Date Procedure Procedure Detail Performing Clinician Start: 01-15-2023 Urnls dip stick/tabl et rgnt auto w/o microscopy Chanell Podlogar PATIENT ACCESS COORDINATOR.DIVING FISHER Work Phone: Start: 01-02-2023 Us transvaginal Johnna Lopez MD Work Phone: Start: 05-23-2022 MIGUEL ANGEL SCREENING W HARPAL Lopez MD Work Phone: Start: 05-23-2022 Mammography Mammograph y Coordinator Start: 10-11-2021 Adult depression scr eening assessment Damian Rojas DO Work Phone: Start: 10-11-2020 Adult depression scr eening assessment Addison Juarez MD Work Phone: Plan of Treatment Date Care Activity Detail Author Start: 04-02-2027 HPV TESTING HPV TESTING [facility] Start: 04-02-2027 PAP TESTING PAP TESTING [facility] Start: 03-20-2026 HPV TESTING HPV TESTING [facility] Start: 03-20-2026 PAP TESTING PAP TESTING [facility] Start: 05-23-2023 Mammography [facility] Start: 12-24-2022 End: 02-23-2023 Follitropin [Units/volume] in Serum or Plasma [facility]SH BLD Lab Routine Abnormal uterine bleeding Expected: 12/24/2022, Expires: 02/23/2023 [facility] Work Phone: Immunizations Immunization Date Immunization Notes Care Provider Fa dhaval 05-29-2016 influenza virus vaccine, unspecified formulation Audrey Kearns MD Work Phone: [facility] 01-04-2010 influenza virus vaccine, unspecified formulation Addison Juarez MD Work Phone: [facility] Work Phone: 02-17-2008 influenza virus vaccine, unspecified formulation Addison Juarez MD Work Phone: [facility] Payers Date Payer Category Payer Unknown [id number] 2021 Unknown [id number] 2018 Unknown [employer] PPO [id number] 2018-Present [phone] [address] [place] [address] PPO [id number] 2018 Unknown [id number] Social History Date Type Detail Facility Start: 11-06-2021 Tobacco smoking stat us SDIS Never smoked tobacco [facility] Start: 03-20-2021 End: 04-02-2022 Alcohol intake Ex-drinker (finding) [facility] Start: 11-02-2019 End: 12-20-2021 History SDOH Alcohol Frequency 2 [facility] Start: 11-02-2019 End: 12-20-2021 History SDOH Alcohol Std Drinks 1 [facility] Start: 03-20-2021 History SDOH Alcohol Comment rare [facility] Start: 11-02-2019 History SDOH Social Connections Phone 4 [facility] Start: 11-02-2019 End: 12-20-2021 History SDOH Social Connections Uatsdin 3 [facility] Start: 11-02-2019 End: 12-20-2021 History SDOH Financial 5 [facility] Start: 11-01-2019 Education 15 [facility] Start: 1980 Sex Assigned At Not on file [facility] Start: 07-02-2021 End: 01-10-2022 Exposure to SARS-CoV-2 (event) Not sure [facility] Start: 09-24-2021 End: 10-04-2021 Exposure to SARS-CoV-2 (event) Unable to assess [facility] Work Phone: Start: 11-06-2021 Tobacco use and exposure Smoke less tobacco non-user [facility] Tobacco smoking status No Smokin g Status Entered [facility] Sex Assigned At Female [facility] Start: 12-20-2021 End: 04-19-2022 History of Social function [facility] Start: 12-20-2021 End: 04-19-2022 Social connection and isolation panel [facility] Do you belong to any clubs or organizations such as temple groups, unions, fraternal or athletic groups, or school groups? Yes [facility] Are you now , , , , never or living with a partner? [facility] How often to you hav e a drink containing alcohol? Monthly or less [facility] How many standard dr inks containing alcohol do you have on a typical day? 1 or 2 [facility] How often do you hav e 6 or more drinks on 1 occasion? Never [facility] How hard is it for y ou to pay for the very basics like food, housing, medical care, and heating Not hard at all [facility] Do you feel stress - tense, restless, nervous, or anxious, or unable to sleep at night because your mind is troubled all the time - these days [OSQ] Very much [facility] (I/We) worried wheth er (my/our) food would run out before (I/we) got money to buy more. Never true [facility] In the past 12 month s, was there a time when you were not able to pay the mortgage or rent on time? No [facility] Clinical Notes 09-21-2015 to 01-15-2023 Chanell Amaral APRN.DIVING FISHER - 01/15/2023 9:38 AM EDTCAlivia peña RDMS - 01/02/2023 10:45 AM EDTTelephone Encounter - Toya Berrios RN - 12/24/2022 10:19 AM EDTPatient Instructions Note Date & Type Note Facility 01-15-2023 Note HNO ID: [id number] Author: Chanell Amaral APRN.DIVING FISHER Service: ? Author Type: Nurse Practitioner Type: Progress Notes Filed: 01/15/2023 11:07 AM Note Text: 01/15/2023 Patient presents with: Abdominal Pain: Right lower quadrant area x5 days; dull ache SUBJECTIVE: This is a 42 year old that is here today for Above Complaints.. ONSET: five days LOCATION: right lower quadrant DURATION: intermittent CHARACTERISTICS: dull, burning AGGRAVATING FEATURES: ALLEVIATING FEATURES: heating pad RADIATION: none A little lower back pain off and on. Feeling anxious about it. Admits to chills last night Recent pelvic US a couple of weeks ago due to spotting ongoing for a a couple of months Denies fevers, increasing vaginal bleeding, constipation, diarrhea, nausea, vomiting, melana, hematochezia, urinary frequency/urgency, dysuria or hematuria Component Latest Ref Rng AND Units 01/15/2023 GLUCOSE UA (POCT) Negative mg/dL Negative BILIRUBIN UA (POCT) Negative Negative KETONE UA (POCT) Negative mg/dL Negative SPECIFIC GRAVITY UA (POCT) 1.005 - 1.030 1.015 HEMOGLOBIN/BLOOD UA (POCT) Negative Trace-intact (A) PH UA (POCT) 4.5 - 8.0 7.0 PROTEIN UA (POCT) Negative mg/dL Negative UROBILINOGEN UA (POCT) Normal E.U./dL 0.2 NITRITE UA (POCT) Negative Negative LEUKOCYTES UA (POCT) Negative Negative COLOR UA (POCT) Yellow CLARITY UA (POCT) Clear IMPRESSION: Single fibroid. Otherwise normal pelvic ultrasound Charge Histotechnologist: MOISES Transcribe Date/Time: Jan 02 2023 2:56P Dictated by : PINA WEAVER MD This examination was interpreted and the report reviewed and electronically signed by: PINA WEAVER MD on Jan 02 2023 3:02PM EST Results-Findings * * *Final Report* * * DATE OF EXAM: Jan 02 2023 11:22AM WRU 1060 - US FEMALE PELVIS TRANSVAG / PROCEDURE REASON: Abnormal uterine bleeding * * * * Physician Interpretation * * * * EXAMINATION: TRANSVAGINAL AND LIMITED TRANSABDOMINAL FEMALE PELVIC ULTRASOUND CLINICAL HISTORY: Postmenopausal spotting TECHNIQUE: Sonography of the pelvis was performed by transvaginal and transabdominal (limited) techniques. Images were obtained and stored in a permanent archive. MQ: [id number] COMPARISON: None RESULT: Uterus: -Size: 8.6 x 3.9 x 4.6 cm -Orientation: Anteverted -Endometrial echo complex: Evaluation of the endometrium was adequate. No endometrial abnormality. The endometrial echo complex measured 0.3 cm. -Cervix: Nabothian cysts present, otherwise unremarkable. -Adenomyosis assessment: There are no sonographic findings of adenomyosis. -Fibroids: Left subserosal fibroid of 1.8 x 1.4 x 1.3 cm Right Ovary: 2.9 x 2.1 x 2.2 cm Simple follicular cyst of 2.1 cm Left Ovary: 2.4 x 1 x 2.2 cm Free Fluid: No abnormal free fluid is present. PAST MEDICAL HISTORY Diagnosis Date Abnormal glandular Papanicolaou smear of cervix Abn. Pap smear (cervix) Anxiety state yrs started lexapro Cervical high risk human papillomavirus (HPV) DNA test positive 2006 2007 Complication of anesthesia ineffective Epidural COVID-19 12/19/2020 Erythema multiforme [facility]OME Herpes simplex virus (HSV) infection HSDD-aquired 09/2020 start vag dhea Localized superficial swelling, mass, or lump 10/25/2009 LEFT AXILLA Migraine, unspecified, with intractable migraine, so stated, without mention of status migrainosus Migraine Papanicolaou smear of cervix with low grade squamous intraepithelial lesion (LGSIL) 2006 Pelvic congestion syndrome depression 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 (Patient taking differently: Take 5 mg by mouth once daily. Patient reports taking 1/2 tab daily) Cholecalciferol, Vitamin D3, 125 mcg (5,000 unit) cap Take 1 capsule by mouth once daily. w K2 rizatriptan (MAXALT-RECOVERY ROOM RN) 10 mg disintegrating tablet Take 1 tablet by mouth as needed. May repeat in 2 hours if needed ondansetron orally disintegrating (ZOFRAN ODT) 4 mg disintegrating tablet Take 1 tablet by mouth every 6 hours as needed for nausea/vomiting. (Patient not taking: Reported on 01/10/2022) No current facility-administered medications for this visit. Medications and allergies reviewed by this provider. SOCIAL HISTORY Social History Tobacco Use Smoking status: Never Smokeless tobacco: Never Vaping Use Vaping Use: Never used Substance Use Topics Alcohol use: Not Currently Comment: rare Drug use: No REVIEW OF SYSTEMS All other reviewed and negative other than HPI. OBJECTIVE: BP 104/78 Pulse 83 (more content not included)... [facility] 01-15-2023 History of Presen t illness Narrative 01/15/2023 Patient presents with: Abdominal Pain: Right lower quadrant area x5 days; dull ache SUBJECTIVE: This is a 42 year old that is here today for Above Complaints.. ONSET: five days LOCATION: right lower quadrant DURATION: intermittent CHARACTERISTICS: dull, burning AGGRAVATING FEATURES: ALLEVIATING FEATURES: heating pad RADIATION: none A little lower back pain off and on. Feeling anxious about it. Admits to chills last night Recent pelvic US a couple of weeks ago due to spotting ongoing for a a couple of months Denies fevers, increasing vaginal bleeding, constipation, diarrhea, nausea, vomiting, melana, hematochezia, urinary frequency/urgency, dysuria or hematuria Component Latest Ref Rng & Units 01/15/2023 GLUCOSE UA (POCT) Negative mg/dL Negative BILIRUBIN UA (POCT) Negative Negative KETONE UA (POCT) Negative mg/dL Negative SPECIFIC GRAVITY UA (POCT) 1.005 - 1.030 1.015 HEMOGLOBIN/BLOOD UA (POCT) Negative Trace-intact (A) PH UA (POCT) 4.5 - 8.0 7.0 PROTEIN UA (POCT) Negative mg/dL Negative UROBILINOGEN UA (POCT) Normal E.U./dL 0.2 NITRITE UA (POCT) Negative Negative LEUKOCYTES UA (POCT) Negative Negative COLOR UA (POCT) Yellow CLARITY UA (POCT) Clear IMPRESSION: Single fibroid. Otherwise normal pelvic ultrasound Charge Histotechnologist: PSCB Transcribe Date/Time: Jan 02 2023 2:56P Dictated by : PINA WEAVER MD This examination was interpreted and the report reviewed and electronically signed by: PINA WEAVER MD on Jan 02 2023 3:02PM EST Results-Findings * * *Final Report* * * DATE OF EXAM: Jan 02 2023 11:22AM [facility] 1060 - US FEMALE PELVIS TRANSVAG / PROCEDURE REASON: Abnormal uterine bleeding * * * * Physician Interpretation * * * * EXAMINATION: TRANSVAGINAL AND LIMITED TRANSABDOMINAL FEMALE PELVIC ULTRASOUND CLINICAL HISTORY: Postmenopausal spotting TECHNIQUE: Sonography of the pelvis was performed by transvaginal and transabdominal (limited) techniques. Images were obtained and stored in a permanent archive. MQ: [id number] COMPARISON: None RESULT: Uterus: -Size: 8.6 x 3.9 x 4.6 cm -Orientation: Anteverted -Endometrial echo complex: Evaluation of the endometrium was adequate. No endometrial abnormality. The endometrial echo complex measured 0.3 cm. -Cervix: Nabothian cysts present, otherwise unremarkable. -Adenomyosis assessment: There are no sonographic findings of adenomyosis. -Fibroids: Left subserosal fibroid of 1.8 x 1.4 x 1.3 cm Right Ovary: 2.9 x 2.1 x 2.2 cm Simple follicular cyst of 2.1 cm Left Ovary: 2.4 x 1 x 2.2 cm Free Fluid: No abnormal free fluid is present. PAST MEDICAL HISTORY Diagnosis Date Abnormal glandular Papanicolaou smear of cervix Abn. Pap smear (cervix) Anxiety state yrs started lexapro Cervical high risk human papillomavirus (HPV) DNA test positive 2006 2007 Complication of anesthesia ineffective Epidural COVID-19 12/19/2020 Erythema multiforme MEDINA CHINEDU SYNDROME Herpes simplex virus (HSV) infection HSDD-aquired 09/2020 start vag dhea Localized superficial swelling, mass, or lump 10/25/2009 LEFT AXILLA Migraine, unspecified, with intractable migraine, so stated, without mention of status migrainosus Migraine Papanicolaou smear of cervix with low grade squamous intraepithelial lesion (LGSIL) 2006 Pelvic congestion syndrome depression 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 (Patient taking differently: Take 5 mg by mouth once daily. Patient reports taking 1/2 tab daily) Cholecalciferol, Vitamin D3, 125 mcg (5,000 unit) cap Take 1 capsule by mouth once daily. w K2 rizatriptan (MAXALT-RECOVERY ROOM RN) 10 mg disintegrating tablet Take 1 tablet by mouth as needed. May repeat in 2 hours if needed ondansetron orally disintegrating (ZOFRAN ODT) 4 mg disintegrating tablet Take 1 tablet by mouth every 6 hours as needed for nausea/vomiting. (Patient not taking: Reported on 01/10/2022) No current facility-administered medications for this visit. Medications and allergies reviewed by this provider. SOCIAL HISTORY Social History Tobacco Use Smoking status: Never Smokeless tobacco: Never Vaping Use Vaping Use: Never used Substance Use Topics Alcohol use: Not Currently Comment: rare Drug use: No REVIEW OF SYSTEMS All other reviewed and negative other than HPI. OBJECTIVE: BP 104/78 Pulse 83 Resp 16 Wt 52.5 kg (115 lb 12.8 oz) LMP 02/02/2021 SpO2 99% BMI 20.51 kg/m . Vital signs reviewed by this provider. APPEARANCE Well appearing, alert, in no acute distress, well-hydrated, well nourished. EYES PERRLA, conjunctiva and sclera normal. HEART RRR with normal S1 and S2, no murmurs, no gallops, no JVD appreciated LUNG clear to auscultation ABDOMEN bowel sounds normoactive, no bruits, soft, non-tender, non-distended, without organomegaly or palpable masses, No rebound tenderness or guarding SKIN Skin color, texture, turgor normal, no suspicious rashes or lesions to exposed skin Hepatitis B Vaccine(1 of 3 - 3-dose series) Never done Covid-19 Vaccine(1) Never done DTaP,Tdap,Td Vaccine(1 - Tdap) Never done Depression Assessment Never done Influenza Vaccine(1) due on 11/29/2022 Mammogram Screening due on 05/23/2023 Pap Testing due on 04/02/2027 HPV Testing due on 04/02/2027 Hepatitis C Screening Completed HIV Screening Completed HPV Vaccine Aged Out ASSESSMENT/PLAN: 1. RLQ abdominal pain - ICD9: 789.03, ICD10: R10.31 - possibly muscular - no red flag symptoms or exam findings - red flag symptoms discussed - may use heating pad for 15 minutes at a time and OTC oral pain relievers as directed on packaging - UA DIP, URINE (POC) - follow-up as needed to ER with red flag symptoms Chanell Amaral APRN.CNP Prescription instructions reviewed with patient as applicable. Patient advised if symptoms do not improve or if symptoms worsen sooner, to contact their primary care physician. Potential red flag symptoms discussed with the patient. Reviewed appropriate action plan to take if red flag symptoms occur. Patient agreeable to treatment plan. I spent a total of 25 minutes on the date of the service which included preparing to see the patient, [id number] patient care, completing clinical documentation, obtaining and/or reviewing separately obtained history, performing a medically appropriate examination, and counseling and educating the patient/family/caregiver. documented in this encounter [facility] 01-02-2023 Note HNO ID: [id number] Author: Alivia Bailey RDMS Service: ? Author Type: Engineering Group Manager Type: Progress Notes Filed: 01/02/2023 11:24 AM Note Text: Radiology Service Progress Note PATIENT NAME: Gabriela Turk DATE OF SERVICE: January 02, 2023 TIME: 11:24 AM PATIENT IDENTITY VERIFICATION COMPLETED USING TWO (2) IDENTIFIERS: Name and Date of confirmed by patient verbally. FALL SCREENING: Has the patient had 2 falls in the last year or 1 fall with injury or currently using an Ambulatory Assistive Device (Walker, Cane, Wheelchair, Crutches, etc.)? No PATIENT GENDER DATA: Female. status: : No status: NO. PATIENT RELEVANT IMPLANT DATA REVIEWED: Not Applicable RADIOLOGY DEPARTMENT: Biopsy and Ultrasound PERIPHERAL IV DATA: Not applicable SIGNED BY: Alivia Bailey RDMS January 02, 2023 11:24 AM [facility] 01-02-2023 History of Presen t illness Narrative Radiology Service Progress Note PATIENT NAME: Gabriela Turk DATE OF SERVICE: January 02, 2023 TIME: 11:24 AM PATIENT IDENTITY VERIFICATION COMPLETED USING TWO (2) IDENTIFIERS: Name and Date of confirmed by patient verbally. FALL SCREENING: Has the patient had 2 falls in the last year or 1 fall with injury or currently using an Ambulatory Assistive Device (Walker, Cane, Wheelchair, Crutches, etc.)? No PATIENT GENDER DATA: Female. status: : No status: NO. PATIENT RELEVANT IMPLANT DATA REVIEWED: Not Applicable RADIOLOGY DEPARTMENT: Biopsy and Ultrasound PERIPHERAL IV DATA: Not applicable SIGNED BY: Alivia Bailey RDMS January 02, 2023 11:24 AM documented in this encounter [facility] 12-24-2022 Miscellaneous Notes Patient notified. Transferred to [facility] to schedule her US. Toya Berrios RN Left message to call office I recommend some labs & a pelvic US which I have ordered. This will give us additional information about whether she truly is in premature menopause & if there is another cause for her bleeding. Please reassure that this is likely hormonal in nature and unlikely anything serious. Johnna Lopez MD Likely not completely menopausal. However, she will need to wait for her provider to reply.Audrey Kearns MD Pt calling and stated that she started spotting this morning, brown in color and she is reporting that she is cramping. Noted with wiping. Denies any UTI sxs. Pt had labs done in January and her FSH showed to be in the post menopausal range. Pt very anxious and wanting to know how to proceed. Does pt need to have an appointment for an EMB or further evaluation. Please advise and where to place on schedule. Kaitlin Gaines LPN documented in this encounter [facility] 05-24-2022 Miscellaneous Notes May 27, 2022 PID: [id number] Gabriela Turk [address] [place] [address] Dear Ms. Turk, We are pleased to inform you that the results of your recent breast imaging exam on 05/23/2022 are normal. Your mammogram demonstrates that you have dense breast tissue, which could hide abnormalities. Dense breast tissue, in and of itself, is a relatively common condition. Therefore, this information is not provided to cause undue concern; rather, it is to raise your awareness and promote discussion with your health care provider regarding the presence of dense breast tissue in addition to other risk factors. Early detection of cancer is very important. We also understand recommendations regarding breast cancer screening are controversial. Please discuss with your primary care provider which strategy is best for you and whether a mammogram is right for you. Your imaging studies and report will be kept on file at [facility] as part of your permanent medical record and are available for your continuing care. Thank you for allowing us to help in meeting your health care needs. Sincerely, Dr. Pike Interpreting Radiologist [facility] (Normal over 40) documented in this encounter [facility] 05-23-2022 Note HNO ID: [id number] Author: Yosi Landry Service: ? Author Type: Engineering Group Manager Type: Progress Notes Filed: 05/23/2022 2:43 PM Note Text: Radiology Service Progress Note PATIENT NAME: Gabriela Turk DATE OF SERVICE: May 23, 2022 TIME: 2:24 PM PATIENT IDENTITY VERIFICATION COMPLETED USING TWO (2) IDENTIFIERS: Name and Date of confirmed by patient verbally. FALL SCREENING: Has the patient had 2 falls in the last year or 1 fall with injury or currently using an Ambulatory Assistive Device (Walker, Cane, Wheelchair, Crutches, etc.)? No PATIENT GENDER DATA: Female. status: : No status: NO. PATIENT RELEVANT IMPLANT DATA REVIEWED: Not Applicable RADIOLOGY DEPARTMENT: Mammography PERIPHERAL IV DATA: Not applicable SIGNED BY: Yosi Landry May 23, 2022 2:24 PM [facility] 05-23-2022 History of Presen t illness Narrative Radiology Service Progress Note PATIENT NAME: Gabriela Turk DATE OF SERVICE: May 23, 2022 TIME: 2:24 PM PATIENT IDENTITY VERIFICATION COMPLETED USING TWO (2) IDENTIFIERS: Name and Date of confirmed by patient verbally. FALL SCREENING: Has the patient had 2 falls in the last year or 1 fall with injury or currently using an Ambulatory Assistive Device (Walker, Cane, Wheelchair, Crutches, etc.)? No PATIENT GENDER DATA: Female. status: : No status: NO. PATIENT RELEVANT IMPLANT DATA REVIEWED: Not Applicable RADIOLOGY DEPARTMENT: Mammography PERIPHERAL IV DATA: Not applicable SIGNED BY: Yosi Landry May 23, 2022 2:24 PM documented in this encounter [facility] 04-23-2022 Miscellaneous Notes I don't think that any follow up US is needed. Johnna Lopez MD Please see attached form from pt. Pt is aware that you are out of the office until 04/23/22. Kaitlin Gaines LPN documented in this encounter [facility] 04-02-2022 Note HNO ID: [id number] Author: Johnna Lopez MD Service: ? Author Type: Physician Type: Progress Notes Filed: 04/02/2022 10:39 AM Note Text: Gabriela is a 42 year old who presents for an annual gynecologic exam. Menses: no menses - postmenopausal. Contraception: vasectomy HPV vaccine: N/A Last Pap: 03/27/2021 normal HPV: 03/26/2021 negative History of abnormal pap: Yes - 2007 Last mammogram: 2diagnostic imaging OB History T3 L3 SAB0 IAB0 Ectopic0 Multiple0 Live Births3 Comment: 3 children and one stepson Menarche age 11-12, FFTP 26, did breastfeed, S/p 2019 right brst bx reported benign path ([facility]) No large babies >9lbs, no large vaginal tears with No preeclampsia or GDM. Mild PPD during 2nd no medication needed Was on OCPs 2-3 years, well-tolerated, no DVT or gallbladders Indigo Vat Tender Cloth History LMP: 02/02/2021, Postmenopausal Age at Menarche: Age at First : Age at Menopause: Indigo Vat Tender Cloth History Comments: Sexual Activity: Yes; Male; vasectomy Contraception: Vasectomy PAST MEDICAL HISTORY Diagnosis Date Abnormal glandular Papanicolaou smear of cervix Abn. Pap smear (cervix) Anxiety state yrs started lexapro Cervical high risk human papillomavirus (HPV) DNA test positive 2006 2007 Complication of anesthesia ineffective Epidural COVID-19 12/19/2020 Erythema multiforme MEDINA CHINEDU SYNDROME Herpes simplex virus (HSV) infection HSDD-aquired 09/2020 start vag dhea Localized superficial swelling, mass, or lump 10/25/2009 LEFT AXILLA Migraine, unspecified, with intractable migraine, so stated, without mention of status migrainosus Migraine Papanicolaou smear of cervix with low grade squamous intraepithelial lesion (LGSIL) 2007 Pelvic congestion syndrome depression Symptomatic premature menopause 09/2020 neg fragile X neg celiac neg ovarian ab thrombocytopenia with previous Urinary tract infection, site not specified Recurrent UTI's PAST SURGICAL HISTORY Procedure Laterality Date BREAST BIOPSY 08/2018 Right Breast at [facility]; benign BX/EXC LYMPH NODE OPEN SUPERFICIAL 10/25/2009 LEFT AXILLA COLONOSCOPY 2018 COLPOSCOPY CERVIX UPPER/ADJACENT VAGINA 06/13/200604/08 Colposcopy MAMMOGRAM 12/2017 PAST SURGICAL HISTORY OF wisdom teeth TONSILLECTOMY PRIMARY/SECONDARY Tonsillectomy FAMILY HISTORY Problem Relation Age of Onset other (autoimmune disorders) Mother Emphysema Father acromegaly Hypertension Father age 57 Cancer Father lung other (acromegaly) Father other (healhty) Brother other (smoker) Brother Hypertension Brother other (smoker) Brother other (kidney transplant) Maternal Grandmother Stroke Maternal Grandfather Alzheimer's Disease Paternal Grandfather Heart Paternal Grandfather IN other (healthy) Daughter other (healthy) Daughter other (healthy) Son Heart Paternal Uncle IN SOCIAL HISTORY Social History Tobacco Use Smoking status: Never Smokeless tobacco: Never Vaping Use Vaping Use: Never used Substance Use Topics Alcohol use: Not Currently Comment: rare Drug use: No REVIEW OF SYSTEMS Abdomen: No abdominal pain, nausea, vomiting, diarrhea, or constipation. No bloating, early satiety, indigestion, or increased flatulence. Bladder: No dysuria, gross hematuria, urinary frequency, urinary urgency, or incontinence. Breast: No breast lumps, nipple d/c, overlying skin changes, redness or skin retraction. Allergies and current medication updated:Yes EXAM: BP 92/60 Ht 5' 3 (1.60m) Wt 113 lb 14.4 oz (51.7kg) LMP 02/02/2021 BMI 20.18 kg/(m2). GENERAL: pleasant, female in no apparent distress BREAST: soft, non-tender, symmetric, no dominant mass, normal nipple-areolar complex, no lymphadenopathy, and no nipple discharge CHEST: Normal inspiratory effort ABDOMEN: soft, non-tender, and no masses PELVIC: external genitalia normal, normal Bartholin's glands, urethra, [place]'s glands, no vulvar lesions, no cervical lesions, good vaginal support, physiologic discharge present, normal appearing perineal body and perianal region BIMANUAL: uterus normal size, shape and consistency, no adnexal masses, and non-tender RECTOVAGINAL: deferred. NEURO: alert and oriented x3,exam grossly non-focal EXTREMITIES: normal ASSESSMENT/PLAN: 1) Health maintenance: Pap done with HPV. Mammogram ordered. Nutrition, exercise and routine health maintenance exams reviewed. 2) Contraception: vasectomy. 3) Premature menopause - s/p consult with AND . She currently declines HRT. 4) Follow up one year or sooner as needed Johnna Lopez MD [facility] 04-02-2022 History of Presen t illness Narrative Gabriela is a 42 year old who presents for an annual gynecologic exam. Menses: no menses - postmenopausal. Contraception: vasectomy HPV vaccine: N/A Last Pap: 03/27/2021 normal HPV: 03/26/2021 negative History of abnormal pap: Yes - 2007 Last mammogram: 2diagnostic imaging OB History T3 L3 SAB0 IAB0 Ectopic0 Multiple0 Live Births3 Comment: 3 children and one stepson Menarche age 11-12, FFTP 26, did breastfeed, S/p 2019 right brst bx reported benign path (done [facility]) No large babies >9lbs, no large vaginal tears with No preeclampsia or GDM. Mild PPD during 2nd no medication needed Was on OCPs 2-3 years, well-tolerated, no DVT or gallbladders Indigo Vat Tender Cloth History LMP: 02/02/2021, Postmenopausal Age at Menarche: Age at First : Age at Menopause: Indigo Vat Tender Cloth History Comments: Sexual Activity: Yes; Male; vasectomy Contraception: Vasectomy PAST MEDICAL HISTORY Diagnosis Date Abnormal glandular Papanicolaou smear of cervix Abn. Pap smear (cervix) Anxiety state yrs started lexapro Cervical high risk human papillomavirus (HPV) DNA test positive 2006 2007 Complication of anesthesia ineffective Epidural COVID-19 12/19/2020 Erythema multiforme MEDINA CHINEDU SYNDROME Herpes simplex virus (HSV) infection HSDD-aquired 09/2020 start vag dhea Localized superficial swelling, mass, or lump 10/25/2009 LEFT AXILLA Migraine, unspecified, with intractable migraine, so stated, without mention of status migrainosus Migraine Papanicolaou smear of cervix with low grade squamous intraepithelial lesion (LGSIL) 2006 Pelvic congestion syndrome depression Symptomatic premature menopause 09/2020 neg fragile X neg celiac neg ovarian ab thrombocytopenia with previous Urinary tract infection, site not specified Recurrent UTI's PAST SURGICAL HISTORY Procedure Laterality Date BREAST BIOPSY 08/2018 Right Breast at [facility]; benign BX/EXC LYMPH NODE OPEN SUPERFICIAL 10/25/2009 LEFT AXILLA COLONOSCOPY 2018 COLPOSCOPY CERVIX UPPER/ADJACENT VAGINA 06/13/200604/08 Colposcopy MAMMOGRAM 12/2017 PAST SURGICAL HISTORY OF wisdom teeth TONSILLECTOMY PRIMARY/SECONDARY <AGE 14 Tonsillectomy FAMILY HISTORY Problem Relation Age of Onset other (autoimmune disorders) Mother Emphysema Father acromegaly Hypertension Father age 57 Cancer Father lung other (acromegaly) Father other (healhty) Brother other (smoker) Brother Hypertension Brother other (smoker) Brother other (kidney transplant) Maternal Grandmother Stroke Maternal Grandfather Alzheimer's Disease Paternal Grandfather Heart Paternal Grandfather [place] other (healthy) Daughter other (healthy) Daughter other (healthy) Son Heart Paternal Uncle IN SOCIAL HISTORY Social History Tobacco Use Smoking status: Never Smokeless tobacco: Never Vaping Use Vaping Use: Never used Substance Use Topics Alcohol use: Not Currently Comment: rare Drug use: No REVIEW OF SYSTEMS Abdomen: No abdominal pain, nausea, vomiting, diarrhea, or constipation. No bloating, early satiety, indigestion, or increased flatulence. Bladder: No dysuria, gross hematuria, urinary frequency, urinary urgency, or incontinence. Breast: No breast lumps, nipple d/c, overlying skin changes, redness or skin retraction. Allergies and current medication updated:Yes EXAM: BP 92/60 Ht 5' 3 (1.60m) Wt 113 lb 14.4 oz (51.7kg) LMP 02/02/2021 BMI 20.18 kg/(m^2). GENERAL: pleasant, female in no apparent distress BREAST: soft, non-tender, symmetric, no dominant mass, normal nipple-areolar complex, no lymphadenopathy, and no nipple discharge CHEST: Normal inspiratory effort ABDOMEN: soft, non-tender, and no masses PELVIC: external genitalia normal, normal Bartholin's glands, urethra, [place]'s glands, no vulvar lesions, no cervical lesions, good vaginal support, physiologic discharge present, normal appearing perineal body and perianal region BIMANUAL: uterus normal size, shape and consistency, no adnexal masses, and non-tender RECTOVAGINAL: deferred. NEURO: alert and oriented x3,exam grossly non-focal EXTREMITIES: normal ASSESSMENT/PLAN: 1) Health maintenance: Pap done with HPV. Mammogram ordered. Nutrition, exercise and routine health maintenance exams reviewed. 2) Contraception: vasectomy. 3) Premature menopause - s/p consult with & . She currently declines HRT. 4) Follow up one year or sooner as needed Johnna Lopez MD documented in this encounter [facility] 02-19-2022 Note HNO ID: [id number] Author: Heather Ribera APRN.DIVING FISHER Service: ? Author Type: Nurse Practitioner Type: Progress Notes Filed: 02/19/2022 6:02 PM Note Text: This is a 41 year old female who presents today with: Patient presents with: Follow Up HISTORY OF PRESENT ILLNESS: Gabriela Turk is a 41 year old female. Patient presents with: Follow Up Pt presents today to follow-up. She reports that she was following with a provider in [place] for hormone replacement therapy. Reports that she had some lab work that showed a low white count and lymphocytes back in October. She has been thinking about this and would like to have testing repeated. Father had cancer, so this is a concern for her. She does not think that she was ill at the time of the lab work. She is no longer using the hormone replacement. She does have some lab work scanned into her chart from October. It does appear that it is missing a page that includes the white blood count and lymphocytes. Last illness was approximately a month ago and was a stomach bug. She has chronic palpable lymph nodes in the left axilla, which have been previously evaluated and worked up and are stable. Has not noticed any new lymphadenopathy. No fevers. She is taken the Lexapro 2.5 mg daily. She feels that this is enough to keep mood and anxiety level. Admits that she does have health anxiety. She has experience premature menopause and feels that fluctuating hormones are causing symptoms, as well. PAST MEDICAL HISTORY: PAST MEDICAL HISTORY Diagnosis Date Abnormal glandular Papanicolaou smear of cervix Abn. Pap smear (cervix) Anxiety state yrs started lexapro Cervical high risk human papillomavirus (HPV) DNA test positive 2006 2007 Complication of anesthesia ineffective Epidural COVID-19 12/19/2020 Erythema multiforme MEDINA CHINEDU SYNDROME Herpes simplex virus (HSV) infection HSDD-aquired 09/2020 start vag dhea Localized superficial swelling, mass, or lump 10/25/2009 LEFT AXILLA Migraine, unspecified, with intractable migraine, so stated, without mention of status migrainosus Migraine Papanicolaou smear of cervix with low grade squamous intraepithelial lesion (LGSIL) 2006 Pelvic congestion syndrome depression Symptomatic premature menopause 09/2020 neg fragile X neg celiac neg ovarian ab thrombocytopenia with previous Urinary tract infection, site not specified Recurrent UTI's PAST SURGICAL HISTORY Procedure Laterality Date BREAST BIOPSY 08/2018 Right Breast at [facility]; benign BX/EXC LYMPH NODE OPEN SUPERFICIAL 10/25/2009 LEFT AXILLA COLONOSCOPY 2018 COLPOSCOPY CERVIX UPPER/ADJACENT VAGINA 06/13/200604/08 Colposcopy MAMMOGRAM 12/2017 PAST SURGICAL HISTORY OF wisdom teeth TONSILLECTOMY PRIMARY/SECONDARY Tonsillectomy ALLERGIES Bactrim [Sulfamethoxazole-Trimethoprim] and Sulfa (Sulfonamide Antibiotics) MEDICATIONS Current Outpatient Medications Medication Sig escitalopram oxalate (LEXAPRO) 5 mg tablet Take 1 tablet by mouth once daily. (Patient taking differently: Take 5 mg by mouth once daily. Patient reports taking 1/2 tab daily) Cholecalciferol, Vitamin D3, 125 mcg (5,000 unit) cap Take 1 capsule by mouth once daily. w K2 rizatriptan (MAXALT-RECOVERY ROOM RN) 10 mg disintegrating tablet Take 1 tablet by mouth as needed. May repeat in 2 hours if needed ondansetron orally disintegrating (ZOFRAN ODT) 4 mg disintegrating tablet Take 1 tablet by mouth every 6 hours as needed for nausea/vomiting. (Patient not taking: Reported on 01/10/2022) No current facility-administered medications for this visit. FAMILY HISTORY Problem Relation Age of Onset other (autoimmune disorders) Mother Emphysema Father acromegaly Hypertension Father age 57 Cancer Father lung other (acromegaly) Father other (healhty) Brother other (smoker) Brother Hypertension Brother other (smoker) Brother other (kidney transplant) Maternal Grandmother Stroke Maternal Grandfather Alzheimer's Disease Paternal Grandfather Heart Paternal Grandfather [place] other (healthy) Daughter other (healthy) Daughter other (healthy) Son Heart Paternal Uncle [place] Social History Tobacco Use Smoking status: Never Smokeless tobacco: Never Vaping Use Vaping Use: Never used Substance Use Topics Alcohol use: Not Currently Comment: rare Drug use: No EXAM: BP 112/66 Pulse 90 Resp 16 Wt 50.3 kg (110 lb 12.8 oz) LMP 02/02/2021 SpO2 98% BMI 19.63 kg/m? PHYSICAL EXAM: General Appearance: Well appearing, alert, in no acute distress, well-hydrated, well nourished.. Skin: Skin color, texture, turgor normal, no suspicious rashes or lesions. Head: Normocephalic, no masses, lesions, tenderness or abnormalities. Eyes: Anicteric sclera. Pupils are equally round and reactive to light. Extraocular movements are intact. . Neck: Supple, no adenopathy; thyroid symmetri (more content not included)... [facility] 01-10-2022 History of Presen t illness Narrative A copy of patient endocrinology labs were sent to scanning. CONSULTING PHYSICIAN: Edie Kemp [address] [facility] [id number] My final recommendations will be communicated back to the requesting physician by way of shared Medical record or a letter via [place] mail Subjective: Gabriela Turk is a 41 year old female here to establish care for Premature Menopause. Initially, she was evaluated by . At that time, she was started on HRT She tried Estradiol patch for 3 months, progesterone pill and vaginal DHEA. She didn't want to continue using the patch and doesn't want to start OCP due to history of Migraine headaches. Patient then went for a 2nd opinion and was prescribed estrogen cream (compounded pharmacy) and progesterone lozenges. She got sick with COVID and developed dizziness Due to dizziness, she stopped using the estrogen cream General symptoms: Weight change: No Menstrual irregularities: menses were sporadic after last at age 36. LMP ~ 1 year ago. Hot flashes - during the day, feels aggravated before she has the hot flashes She also has recurrent Acne on her chin. Saw dermatology and suggested Accutane. She has a family history of Acromegaly Her mother has premature menopause at age 42. Patient reports joint pain and swelling in her hands Her rings are not fitting well. Outside labs: TSH- 1.43 Free T4- 0.92 Free T3- 3.02 FSH- 114.6 Estradiol- 44.63 Prolactin- 11 Testosterone- 35 DHEA-S: 248 (25.9-460) REVIEW OF SYSTEMS: GENERAL:No weight loss, malaise or fevers NECK:Negative for lumps, goiter, pain and significant neck swelling RESPIRATORY: Negative for cough, hemoptysis, wheezing or shortness of breath CARDIOVASCULAR: Negative for chest pain, leg swelling or palpitations GASTROINTESTINAL: No nausea, vomiting, or persistent diarrhea GENITOURINARY: no dysuria, Polyuria, no changes in urinary frequency MUSCULOSKELETAL:no muscle aches, + arthralgia in hands NEUROLOGIC: no numbness, tingling, no Paresthesias, no headaches SKIN:Negative for lesions, rash, and itching ENDOCRINE: + hot flashes, Negative for cold or heat intolerance or goiter ALLERGIES: ALLERGIES Allergen Reactions Bactrim [Sulfametho* MEDINA CHINEDU SYNDROME Sulfa (Sulfonamide * MEDICATIONS: Current Outpatient Medications on File Prior to Visit Medication Sig escitalopram oxalate (LEXAPRO) 5 mg tablet Take 1 tablet by mouth once daily. Cholecalciferol, Vitamin D3, 125 mcg (5,000 unit) cap Take 1 capsule by mouth once daily. w K2 rizatriptan (MAXALT-RECOVERY ROOM RN) 10 mg disintegrating tablet Take 1 tablet by mouth as needed. May repeat in 2 hours if needed DHEA vaginal suppository 13 mg (CPD) Unwrap and insert one suppository vaginally daily at bedtime. (Patient not taking: Reported on 01/10/2022) ondansetron orally disintegrating (ZOFRAN ODT) 4 mg disintegrating tablet Take 1 tablet by mouth every 6 hours as needed for nausea/vomiting. (Patient not taking: Reported on 01/10/2022) No current facility-administered medications on file prior to visit. PAST MEDICAL HISTORY: PAST MEDICAL HISTORY Diagnosis Date Abnormal glandular Papanicolaou smear of cervix Abn. Pap smear (cervix) Anxiety state yrs started lexapro Cervical high risk human papillomavirus (HPV) DNA test positive 2006 2007 Complication of anesthesia ineffective Epidural COVID-19 12/19/2020 Erythema multiforme MEDINA CHINEDU SYNDROME Herpes simplex virus (HSV) infection HSDD-aquired 09/2020 start vag dhea Localized superficial swelling, mass, or lump 10/25/2009 LEFT AXILLA Migraine, unspecified, with intractable migraine, so stated, without mention of status migrainosus Migraine Papanicolaou smear of cervix with low grade squamous intraepithelial lesion (LGSIL) 2006 Pelvic congestion syndrome depression Symptomatic premature menopause 09/2020 neg fragile X neg celiac neg ovarian ab thrombocytopenia with previous Urinary tract infection, site not specified Recurrent UTI's PAST SURGICAL HISTORY: PAST SURGICAL HISTORY Procedure Laterality Date BREAST BIOPSY 08/2018 Right Breast at [facility]; benign BX/EXC LYMPH NODE OPEN SUPERFICIAL 10/25/2009 LEFT AXILLA COLONOSCOPY 2018 COLPOSCOPY CERVIX UPPER/ADJACENT VAGINA 06/13/200604/08 Colposcopy MAMMOGRAM 12/2017 PAST SURGICAL HISTORY OF wisdom teeth TONSILLECTOMY PRIMARY/SECONDARY <AGE 14 Tonsillectomy FAMILY HISTORY: FAMILY HISTORY Problem Relation Age of Onset other (autoimmune disorders) Mother Emphysema Father acromegaly Hypertension Father age 57 Cancer Father lung other (healhty) Brother other (smoker) Brother Hypertension Brother other (smoker) Brother other (kidney transplant) Maternal Grandmother Stroke Maternal Grandfather Alzheimer's Disease Paternal Grandfather Heart Paternal Grandfather [place] other (healthy) Daughter other (healthy) Daughter other (healthy) Son Heart Paternal Uncle IN SOCIAL HISTORY: Social History Tobacco Use Smoking status: Never Smokeless tobacco: Never Vaping Use Vaping Use: Never used Substance Use Topics Alcohol use: Not Currently Comment: rare Drug use: No PHYSICAL EXAM: BP 117/79 Pulse 79 Ht 160 cm (5' 3 ) Wt 49 kg (108 lb) LMP 02/02/2021 SpO2 100% BMI 19.13 kg/m Last 3 Encounter Wt Readings: Date: Wt: 01/10/2022 49 kg (108 lb) 11/06/2021 49.9 kg (110 lb) 11/01/2021 49.4 kg (109 lb) General: Alert and oriented x3, no acute distress Eyes: Anicteric sclera. Pupils are equally round. Extraocular movements are intact. Neck supple, no cervical lymphadenopathy Thyroid: normal size, normal texture, no palpable nodules Lungs: Breathing unlabored, clear to auscultation. No wheezing Heart regular rate and rhythm, no murmer Musculoskeletal: Muscular strength intact, No joint swelling Neuro: Gait normal. Sensation grossly intact. No focal findings Abdomen:Normal abdominal sounds, non tender to palpation Extremities: without edema, no deformities Skin: no rashes/ erythema LAB: TSH Date Value Ref Range Status 10/05/2020 1.070 0.270 - 4.200 uU/mL Final Comment: If the patient is , TSH reference range varies by gestational period: First Trimester (weeks 9-12): 0.180-2.990 mcIU/mL Second Trimester: 0.110-3.980 mcIU/mL Third Trimester: 0.480-4.710 mcIU/mL Jae Shell et al. A Practical Approach for the Verifications and Determination of Site- and Trimester-Specific Reference Intervals for Thyroid Function tests in . Thyroid, 2019:29:3:412-420. Hipolito Wiggins, et al. 2017 Guidelines of the [place] [employer] for the Diagnosis and Management of Thyroid Disease during and the . Thyroid, 2017:27:3:315-389. Latest Reference Range & Units 10/12/20 13:48 Ovarian Ab Negative Negative ASSESSMENT/PLAN: Premature Menopause Joint pain Acne I had an indepth discussion with the patient regarding her previous and recent outside biochemical evaluation Ovarian Ab was negative. Addressed her questions ans concerns regarding HRT No signs suggestive of Acromegaly Check an Igf-1 level No evidence of Androgen excess, therefore angela is non hormonal Follow up with me if she decides to start HRT. Sonya Arciniega MD documented in this encounter [facility] 01-10-2022 Instructions Sonya Arciniega MD - 01/10/2022 11:39 AM EDT Follow up as needed documented in this encounter [facility] 12-20-2021 History of Presen t illness Narrative Chief Complaint Patient presents with: Telemedicine Patient was offered a virtual/telemedicine appointment in lieu of an office visit due to recommendations to reduce patient exposure to COVID-19. Video was used for evaluation of this patient. Patient is aware of limitations of performing the visit without a face to face visit in the office setting and agrees. Patient agrees to the visit: Yes Patient Location: [facility] Gabriela Turk is a 41 year old female who is contacted today for a virtual visit This is an established patient of Dr. Heather Ribera APRN.DIVING FISHER Reports: Pt reports that she would like to resume her medication. Refers that she has been very anxious lately. She started a hormone therapy, which she thinks has made her be all over the place. Feels like she has some health related anxiety. Refers when she was on medication previously, didn't feel that she was overly focused on the health concerns. Refers that her best friend also suggested that she thinks she would benefit from restarting medication. Just wants to enjoy her life. Refers that she can recognize it but cannot change it. Appetite has been good. Sleeping okay. Denies suicidal/homicidal ideation. Past medical history, appointments, medications, allergies reviewed 12/20/2021 Previous Medical History PAST MEDICAL HISTORY Diagnosis Date Abnormal glandular Papanicolaou smear of cervix Abn. Pap smear (cervix) Anxiety state yrs started lexapro Cervical high risk human papillomavirus (HPV) DNA test positive 2006 2007 Complication of anesthesia ineffective Epidural COVID-19 12/19/2020 Erythema multiforme MEDINA CHINEDU SYNDROME Herpes simplex virus (HSV) infection HSDD-aquired 09/2020 start vag dhea Localized superficial swelling, mass, or lump 10/25/2009 LEFT AXILLA Migraine, unspecified, with intractable migraine, so stated, without mention of status migrainosus Migraine Papanicolaou smear of cervix with low grade squamous intraepithelial lesion (LGSIL) 2006 Pelvic congestion syndrome depression Symptomatic premature menopause 09/2020 neg fragile X neg celiac neg ovarian ab thrombocytopenia with previous Urinary tract infection, site not specified Recurrent UTI's Previous Surgical History PAST SURGICAL HISTORY Procedure Laterality Date BREAST BIOPSY 08/2018 Right Breast at [facility]; benign BX/EXC LYMPH NODE OPEN SUPERFICIAL 10/25/2009 LEFT AXILLA COLONOSCOPY 2018 COLPOSCOPY CERVIX UPPER/ADJACENT VAGINA 06/13/200604/08 Colposcopy MAMMOGRAM 12/2017 PAST SURGICAL HISTORY OF wisdom teeth TONSILLECTOMY PRIMARY/SECONDARY <AGE 14 Tonsillectomy Family History FAMILY HISTORY Problem Relation Age of Onset other (autoimmune disorders) Mother Emphysema Father acromegaly Hypertension Father age 57 Cancer Father lung other (healhty) Brother other (smoker) Brother Hypertension Brother other (smoker) Brother other (kidney transplant) Maternal Grandmother Stroke Maternal Grandfather Alzheimer's Disease Paternal Grandfather Heart Paternal Grandfather [place] other (healthy) Daughter other (healthy) Daughter other (healthy) Son Heart Paternal Uncle IN Patient Allergies ALLERGIES Allergen Reactions Bactrim [Sulfametho* MEDINA CHINEDU SYNDROME Sulfa (Sulfonamide * Current Medications Current Outpatient Medications on File Prior to Visit Medication Sig Cholecalciferol, Vitamin D3, 125 mcg (5,000 unit) cap Take 1 capsule by mouth once daily. w K2 Drospirenone-Ethinyl Estradiol (GIANVI, 28,) 3-0.02 mg per tablet Take 1 tablet by mouth once daily. skip last 4 pills for hormonal reasons DHEA vaginal suppository 13 mg (CPD) Unwrap and insert one suppository vaginally daily at bedtime. rizatriptan (MAXALT-RECOVERY ROOM RN) 10 mg disintegrating tablet Take 1 tablet by mouth as needed. May repeat in 2 hours if needed ondansetron orally disintegrating (ZOFRAN ODT) 4 mg disintegrating tablet Take 1 tablet by mouth every 6 hours as needed for nausea/vomiting. No current facility-administered medications on file prior to visit. Social History Social History Tobacco Use Smoking status: Never Smokeless tobacco: Never Vaping Use Vaping Use: Never used Substance Use Topics Alcohol use: Not Currently Comment: rare Drug use: No EXAM: LMP 02/02/2021 Limited exam as visit was completed over the virtual platform. Virtual visit completed using video, limited exam completed. Patient sounds or appears ill: No General Appearance: Well appearing, alert, in no acute distress, well-hydrated, well nourished. Skin: Skin color normal Head: Normocephalic. No facial swelling or redness. EENT: Eyes nonreddened. No discharge. External ears nonreddened and no swelling. Neck: No mass or lesions. No swelling. FROM Patient is unable to speak in complete sentences: No Patient has labored breathing: No. Patient is audibly coughing: No Psych: Attitude - cooperative, easily engaged in conversation Affect - Euthymic, normal mood Mental status: Alert. Speech is clear and fluent with good repetition, comprehension Appearance - Normal hygiene and grooming appropriate Coordination: No abnormal or extraneous movements. Gait/Stance: Posture is normal. Health Maintenance List DTAP,TDAP,TD(1 - Tdap) Never done INFLUENZA(1) due on 11/29/2021 HEPATITIS B(1 of 3 - 3-dose series) due on 11/06/2022 COVID-19 VACCINE(1) due on 11/06/2022 DEPRESSION SCREENING due on 10/11/2022 PAP TESTING due on 03/20/2026 HPV TESTING due on 03/20/2026 HEPATITIS C SCREENING Completed HIV SCREENING Completed Data reviewed Last 5 Encounter BP Readings: Date: BP: 11/27/2021 118/90 11/06/2021 90/60 11/01/2021 100/68 10/04/2021 90/58 09/06/2021 104/60 BMI Readings from Last 5 Encounters: 11/06/21 : 19.49 kg/m 11/01/21 : 18.56 kg/m 10/04/21 : 17.71 kg/m 09/06/21 : 18.02 kg/m 03/20/21 : 19.21 kg/m Last 5 Encounter Wt Readings: Date: Wt: 11/06/2021 49.9 kg (110 lb) 11/01/2021 49.4 kg (109 lb) 10/04/2021 47.2 kg (104 lb) 09/06/2021 48 kg (105 lb 12.8 oz) 03/20/2021 51.2 kg (112 lb 12.8 oz) Medication and allergy list reviewed, reconciled and updated 12/20/2021 ASSESSMENT/PLAN: 1. Anxiety with depression - ICD9: 300.4, ICD10: F41.8 Requesting to resume the lexapro. She took previously. She would like to resume the 5 mg dose. She will update provider in a month -- sooner if problems/concerns. - ESCITALOPRAM 5 MG TABLET Discussed treatment plan and patient voices understanding. Patient's questions answered appropriately. Medications and potential side effects were discussed and patient voices understanding. Return to the office as scheduled or as needed for worsening/no improvement. Heather Ribera APRN.TULIO documented in this encounter [facility] 11-27-2021 Instructions Heather Ribera APRN.CNP - 11/27/2021 11:28 AM EDT Get the labwork. documented in this encounter [facility] 11-27-2021 History of Presen t illness Narrative This is a 41 year old female who presents today with: Patient presents with: Acute Visit: Joint swelling- bilateral hands/fingers; no redness/warmth HISTORY OF PRESENT ILLNESS: Gabriela Turk is a 41 year old female. Patient presents with: Acute Visit: Joint swelling- bilateral hands/fingers; no redness/warmth Pt presents today with complaint of bilateral hand pain. Refers that this started earlier this month. Hands feel tight. Joints feel sore. Refers that she cannot get rings on. She has been working out more/lifting weights. No other joint pain. Does get some right lower back pain, which does radiate around with some burning in her lower abdomen. She is currently not taking hormones. No dietary changes. No injuries. Family hx of autoimmune process. PAST MEDICAL HISTORY: PAST MEDICAL HISTORY Diagnosis Date Abnormal glandular Papanicolaou smear of cervix Abn. Pap smear (cervix) Anxiety state yrs started lexapro Cervical high risk human papillomavirus (HPV) DNA test positive 2006 2007 Complication of anesthesia ineffective Epidural COVID-19 12/19/2020 Erythema multiforme MEDINA CHINEDU SYNDROME Herpes simplex virus (HSV) infection HSDD-aquired 09/2020 start vag dhea Localized superficial swelling, mass, or lump 10/25/2009 LEFT AXILLA Migraine, unspecified, with intractable migraine, so stated, without mention of status migrainosus Migraine Papanicolaou smear of cervix with low grade squamous intraepithelial lesion (LGSIL) 2006 Pelvic congestion syndrome depression Symptomatic premature menopause 09/2020 neg fragile X neg celiac neg ovarian ab thrombocytopenia with previous Urinary tract infection, site not specified Recurrent UTI's PAST SURGICAL HISTORY Procedure Laterality Date BREAST BIOPSY 08/2018 Right Breast at [facility]; benign BX/EXC LYMPH NODE OPEN SUPERFICIAL 10/25/2009 LEFT AXILLA COLONOSCOPY 2018 COLPOSCOPY CERVIX UPPER/ADJACENT VAGINA 06/13/200604/08 Colposcopy MAMMOGRAM 12/2017 PAST SURGICAL HISTORY OF wisdom teeth TONSILLECTOMY PRIMARY/SECONDARY <AGE 14 Tonsillectomy ALLERGIES Bactrim [Sulfamethoxazole-Trimethoprim] and Sulfa (Sulfonamide Antibiotics) MEDICATIONS Current Outpatient Medications Medication Sig Cholecalciferol, Vitamin D3, 125 mcg (5,000 unit) cap Take 1 capsule by mouth once daily. w K2 rizatriptan (MAXALT-RECOVERY ROOM RN) 10 mg disintegrating tablet Take 1 tablet by mouth as needed. May repeat in 2 hours if needed Drospirenone-Ethinyl Estradiol (GIANVI, 28,) 3-0.02 mg per tablet Take 1 tablet by mouth once daily. skip last 4 pills for hormonal reasons DHEA vaginal suppository 13 mg (CPD) Unwrap and insert one suppository vaginally daily at bedtime. ondansetron orally disintegrating (ZOFRAN ODT) 4 mg disintegrating tablet Take 1 tablet by mouth every 6 hours as needed for nausea/vomiting. No current facility-administered medications for this visit. FAMILY HISTORY Problem Relation Age of Onset other (autoimmune disorders) Mother Emphysema Father acromegaly Hypertension Father age 57 Cancer Father lung other (healhty) Brother other (smoker) Brother Hypertension Brother other (smoker) Brother other (kidney transplant) Maternal Grandmother Stroke Maternal Grandfather Alzheimer's Disease Paternal Grandfather Heart Paternal Grandfather [place] other (healthy) Daughter other (healthy) Daughter other (healthy) Son Heart Paternal Uncle [place] Social History Tobacco Use Smoking status: Never Smokeless tobacco: Never Vaping Use Vaping Use: Never used Substance Use Topics Alcohol use: Not Currently Comment: rare Drug use: No EXAM: BP 118/90 Pulse 77 Resp 18 LMP 02/02/2021 SpO2 98% PHYSICAL EXAM: General Appearance: Well appearing, alert, in no acute distress, well-hydrated, well nourished.. Skin: Skin color, texture, turgor normal, no suspicious rashes or lesions. Head: Normocephalic, no masses, lesions, tenderness or abnormalities. Eyes: Anicteric sclera. Extraocular movements are intact. . Lungs: Lungs clear to auscultation. No wheezing, rhonchi, rales.. Heart: RRR without murmur, gallop, or rubs. No ectopy. Extremities: No deformities, skin discoloration, clubbing or cyanosis. Good capillary refill. + swelling most noticeable at the PIP joints of the hands. No redness. No increased warmth. Neurologic: Gait normal. ASSESSMENT/PLAN: 1. Swollen finger - ICD9: 729.81, ICD10: M79.89 (primary diagnosis) Swelling of PIPs bilaterally in light of family hx of autoimmune processes. Will get rheum work-up. - SED RATE WESTERGREN - C-REACTIVE PROTEIN (CRP) - RHEUMATOID FACTOR BL - CCP ANTIBODY IGG - JEROD BLOOD 2. Chronic right-sided low back pain, unspecified whether sciatica present - ICD9: 724.2, 338.29, ICD10: M54.50, G89.29 Chronic in nature. Has never had imaging. - XR LUMBAR GENERAL 3V AP/LAT/L5-S1 Discussed treatment plan and patient voices understanding. Patient's questions answered appropriately. Medications and potential side effects were discussed and patient voices understanding. Return to the office as scheduled or as needed for worsening/no improvement. Heather Ribera APRN.DIVING FISHER documented in this encounter [facility] 11-21-2021 Evaluation + Plan note Diagnostic Tests PendingVitamin D Level 11/21/21 [facility] 11-08-2021 Miscellaneous Notes Patient notified Spoke with RR and DM. They do not have a recommendation for any specific manufacturing sr engineer either. Recommend norris location Patient called asking if SW had time to speak with RR regarding the name of an manufacturing sr engineer. Toya Berrios RN documented in this encounter [facility] 11-07-2021 Miscellaneous Notes LV 11/06/2021 Symptomatic premature menopause vs POI (primary encounter diagnosis) Comment: doesn't like cycled HT start vikas take daily continuously discussed NOT contraception she wants pelvic US === Called Patient. Verified name and . Pt states after research online, she read that Levonorgestrel is safer that drospirenone in regards to being previously recalled and risks for blot clots. Pt would like to know if the DHEA has any less messy options. Pt would like to know your thoughts on having a control with leveonorgestrel? Please advise. Kasia Zuñiga November 07, 2021 2:56 PM documented in this encounter [facility] 11-06-2021 Miscellaneous Notes Addended by: ADDISON JUAREZ on: 11/06/2021 03:11 PM Modules accepted: Orders documented in this encounter [facility] 11-06-2021 History of Presen t illness Narrative last seen by me 01/2021 reviewed interval history PHYSICIAN NOTE OF PERSONAL INVOLVEMENT IN CARE: I have interviewed the patient and updated the PFS history and ROS as necessary. I have re-performed the HPI, Physical Examination, Assessment and the parts of the HPI, ROS, exam and assessment and plan were copied from my previous visit were thoroughly reviewed line by line with changes made to update the current medical status. Other parts that were not relevant were deleted and the new assessment and plan is as noted below. PCP: Heather Ribera APRN.DIVING FISHER REFERRED by: Dr. 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 Mild PPD during 2nd no medication needed Was on OCPs 2-3 years, well-tolerated, no DVT or gallbladders Component Latest Ref Rng & Units 10/05/2020 10/12/2020 Gliadin Ab, IgA <20 Units 5 Gliadin Ab, IgG <20 Units 2 Prolactin 4.5 - 26.8 ng/mL 25.7 TSH 0.270 - 4.200 uU/mL 1.070 FSH mU/mL 65.4 Fragile X Report See Below Estradiol 17B pg/mL 30 IgA 70 - 400 mg/dL 261 Transglutaminase Ab, IgA <20 Units 6 Vitamin B12 232 - 1,245 pg/mL 606 Ovarian Ab Negative Negative vitamin D was only 32 is now on daily vitamin D3 discussed K2 10/18/20 Normal appearing anteverted uterus that measures 83 mm x 38 mm x 44 mm. The central endometrium complex measures 1.1 mm in combined thickness. No abnormal blood flow to suggest a polyp or focal endometrial pathology is observed within the endometrial complex. The contour of the endometrial cavity was normal on 3-D imaging. Both ovaries are visualized and appear normal. No adnexal masses were observed. There is no free fluid visualized in the peritoneal cavity. tetanus booster per pcp every 10 yrs DUE mammogram and colonoscopy age 47 discussed HPV gardisil INFLUENZA(1) due every fall DEPRESSION SCREENING due yearly per pcp PAP TESTING due on 03/03/2023 with HPV per her TWIST PACKER Immunization History Administered Date(s) Administered Influenza Vaccine, Split-Non Spec 02/17/2008 01/04/2010 TWIST PACKER HPI Hx of regular menses until 3 years ago when periods became irregular, having periods every 2-3 months, and now bleeding for 4-5 months. Last pap 2018 negative and HPV negative. Remote hx of one abnormal pap with repeat negative. Hx of fibroids and adenomyosis No hx of ablation or Hx of D&C Hx of mild PPD did not need medications. No hx of depression/anxiety. No DVT or GB issues Was on OCPs 2-3 years, well-tolerated, no DVT or gallbladders No blood transfusion or HIV risk Patient's last menstrual period was 02/02/2021. 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 BONE STATUS Discussed calcium in the diet and not taking vitamin D3 daily recommended separate oral 2,000 - 5,000 iu K2 Adequate calcium in diet Bone mineral density : Not done yet ordered History of fractures over age 40: N/A, never had fracture Family History of hip Fx: no No known family hx of OP or osteopenia .preivi UTD eye and dental exams, reports good dental health with no planned dental procedures Good diet Exercise infrequently but busy with kids PHYSICAL EXAM: BP 90/60 Ht 5' 3 (1.6 m) Wt 110 lb (49.9 kg) LMP 02/02/2021 BMI 19.49 kg/m Slender Nurse present. here with Examined by Dr. Juarez Skin: Skin color, texture, turgor normal. HEENT: AT/NC Neck: Neck supple, no adenopathy;no goiter Heart: negative. RRR without murmur, gallop, or rubs. No ectopy. Back: straight, no kyphosis. Extremities: Extremities normal. No deformities, edema, or skin discoloration. Neuro: oriented in 3 spheres, right-handed, normal gait, no focal deficits Psych: euthymic ASSESSMENT & PLAN: Symptomatic premature menopause vs POI (primary encounter diagnosis) Comment: doesn't like cycled HT start gianvi take daily continuously discussed NOT contraception she wants pelvic US with vasectomy [facility] Comment: nightly vaginal DHEA get from [facility]TENANCE: Health information given. Women's Health patient information and counselling done. Counseled regarding risk/benefits/alternatives to Hormone Therapy and need for yearly re-evaluation. Living Will & Medical Power of Intelligence Officer Basic recommended- she needs Periodic Pap smear discussed. Mammogram discussed. Colon cancer screening discussed age 47 Bone mineral density on return IMMUNIZATIONS: discussed gardisil check with insurance TD at age 50 or every 10 years Pneumovax (between ages 50-65) Recommend consideration for shingles vaccine in women by age 60 and older. Yearly flu vaccine in the fall recommended. Sincerely, Addison Juarez MD (Signed electronically to expedite mailing) c: Dr Joanne Lopez -it was a pleasure to see this nice lady Gabriela Turk documented in this encounter [facility] 11-01-2021 History of Presen t illness Narrative Gabriela Turk is a 41 year old female who presents to discuss premature menopause. HPI: She states within last year she was diagnosed with premature ovarian failure with known family history of this. Was seen by Dr Addison Juarez and she was started on an estrogen patch, which she reports she did not tolerate. She says next option was the oral estrogen pill, which she is hesitant about. Noticing some fatigue and joint pain. Her biggest concern today is the cause of premature ovarian failure. OB History T3 L3 SAB0 IAB0 Ectopic0 Multiple0 Live Births3 Comment: 3 children and one stepson Menarche age 11-12, FFTP 26, did breastfeed, S/p 2019 right brst bx reported benign path ([facility]) No large babies >9lbs, no large vaginal tears with No preeclampsia or GDM. Mild PPD during 2nd no medication needed Was on OCPs 2-3 years, well-tolerated, no DVT or gallbladders [employer] History LMP: 02/02/2021, Postmenopausal Age at Menarche: Age at First : Age at Menopause: [employer] History Comments: Sexual Activity: Yes; Male; vasectomy Contraception: Vasectomy PAST MEDICAL HISTORY Diagnosis Date Abnormal glandular Papanicolaou smear of cervix Abn. Pap smear (cervix) Anxiety state yrs started lexapro Cervical high risk human papillomavirus (HPV) DNA test positive 2006 2007 Complication of anesthesia ineffective Epidural COVID-19 12/19/2020 Erythema multiforme MEDINA CHINEDU SYNDROME Herpes simplex virus (HSV) infection HSDD 09/2020 start vag dhea Localized superficial swelling, mass, or lump 10/25/2009 LEFT AXILLA Migraine, unspecified, with intractable migraine, so stated, without mention of status migrainosus Migraine Papanicolaou smear of cervix with low grade squamous intraepithelial lesion (LGSIL) 2007 Pelvic congestion syndrome depression Symptomatic premature menopause 09/2020 neg fragile X neg celiac neg ovarian ab thrombocytopenia with previous Urinary tract infection, site not specified Recurrent UTI's PAST SURGICAL HISTORY Procedure Laterality Date BREAST BIOPSY 08/2018 Right Breast at [facility]; benign BX/EXC LYMPH NODE OPEN SUPERFICIAL 10/25/2009 LEFT AXILLA COLONOSCOPY 2018 COLPOSCOPY CERVIX UPPER/ADJACENT VAGINA 06/13/200604/08 Colposcopy MAMMOGRAM 12/2017 PAST SURGICAL HISTORY OF wisdom teeth TONSILLECTOMY PRIMARY/SECONDARY <AGE 14 Tonsillectomy FAMILY HISTORY Problem Relation Age of Onset other (autoimmune disorders) Mother Emphysema Father acromegaly Hypertension Father age 57 Cancer Father lung other (healhty) Brother other (smoker) Brother Hypertension Brother other (smoker) Brother other (kidney transplant) Maternal Grandmother Stroke Maternal Grandfather Alzheimer's Disease Paternal Grandfather Heart Paternal Grandfather [place] other (healthy) Daughter other (healthy) Daughter other (healthy) Son Heart Paternal Uncle [place] Social History Tobacco Use Smoking status: Never Smoker Smokeless tobacco: Never Used Vaping Use Vaping Use: Never used Substance Use Topics Alcohol use: Not Currently Comment: rare Drug use: No Current Outpatient Medications Medication Sig rizatriptan (MAXALT-RECOVERY ROOM RN) 10 mg disintegrating tablet Take 1 tablet by mouth as needed. May repeat in 2 hours if needed ondansetron orally disintegrating (ZOFRAN ODT) 4 mg disintegrating tablet Take 1 tablet by mouth every 6 hours as needed for nausea/vomiting. acetaminophen 300 mg-caffeine 40 mg-butalbital 50 mg (FIORICET) per capsule Take 1 capsule by mouth every 4 hours as needed. (Patient not taking: Reported on 11/01/2021 ) Cholecalciferol, Vitamin D3, 125 mcg (5,000 unit) cap Take 1 capsule by mouth once daily. No current facility-administered medications for this visit. Allergies As of Date: 11/01/2021 Allergen Noted Reaction BACTRIM [SULFAMETHOXAZOLE-TRIMETH*2005 SULFA (SULFONAMIDE ANTIBIOTICS) 02/29/2008 Fully Assessed 11/01/2021 REVIEW OF SYSTEMS Expanded ROS: N/A Allergies and current medication updated:Yes EXAM: BP 100/68 Wt 109 lb (49.4kg) LMP 02/02/2021 GENERAL: pleasant, female in no apparent distress HEENT: Normocephalic, atraumatic, mucus membranes moist and no lesions NECK: full range of motion DERMATOLOGY: Normal, without lesions, non-icteric and non-hirsute CHEST: Normal inspiratory effort NEURO: exam grossly non-focal EXTREMITIES: normal ASSESSMENT AND PLAN: Encounter Diagnosis ICD-10-CM 1. Symptomatic premature menopause E28.310 CONSULT TO ENDOCRINOLOGY CONSULT TO MEDICAL GENETICS - GENERAL Questions answered today to best of my ability. Reviewed possible causes for premature menopause, and symptoms and risks associated with this. Discussed r/b of treatment with estrogen therapy. Recommend following up with Dr. Addison Juarez. Orders placed for consultation with genetics and endo if patient desires. Edie Kemp, I spent 30 minutes in the visit, with more than 50% of the total [id number] time of the visit in counseling / coordination of care. documented in this encounter [facility] 10-11-2021 History of Presen t illness Narrative Images from the original note were not included. [facility] New Patient Evaluation PATIENT NAME: Gabriela Turk DATE OF SERVICE: October 11, 2021 CONSULTING PROVIDER: Addison Juarez [address] [place] [id number] Note: This medical visit was completed virtually via secure audio and video technology provided by the [facility]. Consent related to this virtual visit was provided via MyChart as well as verbally. My findings and recommendations will be transmitted electronically via shared medical records to the consulting provider. HPI: Mrs. 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 She has suffered with migraines since fourth grade. She continues having headaches and she is wondering about whether she has MENA and whether the headaches are caused by or exacerbated by the possible MENA. She has always struggled with falling asleep at night. Has never tried a hypnotic. Middle of the night insomnia. Her brother uses a cpap. Her father snored. Had her tonsils and adenoids removed at age 18. She has never fx her nose or jaw. SLEEP-WAKE SCHEDULE She is a self-described morning person. Bedtime: 11-12 PM. She has a hard time falling asleep. Time to fall asleep: 30-60 Wake time: 6-7 AM, with an alarm. After falling asleep: she wakes up 1 time(s) per night, and does not know the reason for waking up. On weekends, she maintains the same sleep schedule. Average total sleep time (in a 24 hour period): 7 hours. SLEEP-RELATED DETAILS Preferred sleep position: side Breathing disturbances and other behaviors during sleep: snoring and stopping breathing during sleep. Bruxism: No GERD or aspiration: No Waking up with heart pounding or racing: No Anxiety or rumination: No She does not report having an urge to move the legs in the evening (when resting) that is accompanied or caused by uncomfortable and/or unpleasant sensations in the legs. She has not been told that she has leg kicking during sleep. She denies any history of parasomnias. Daytime sleepiness is not a problem. She does not report sleep paralysis or sleep-related hallucinations or cataplexy . 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 She does have difficulty with memory or concentration. She denies falling asleep or dozing off when driving. She does not take naps. She does drink 1 caffeinated beverages per day. There has not been a recent change in weight. Patient Questionnaires Sleep Scores Sleep Questions 10/11/2021 Reason for visit: Sleep apnea, Difficulty falling or staying asleep or poor sleep quality Average hours slept in 24 hours: 12 Accidents or near accidents due to drowsy drivin [place] Sleepiness Scale 10/11/2021 Score 11 (present daytime sleepiness) PROMIS CAT Sleep Disturbance 10/11/2021 PROMIS Sleep Disturbance T-Score 53 (within normal limits) PHQ-9 10/11/2021 Score 0 PROMIS Global Health - (T-Scores - the mean of general population = 50. Five points is a clinically meaningful difference.) 11/01/2019 10/11/2021 Physical T-Score 54.1 - Mental T-Score 48.3 50.8 PAST TREATMENTS: none PRIOR SLEEP STUDIES: none OTHER RELEVANT LABS AND STUDIES: none PAST MEDICAL HISTORY Diagnosis Date Abnormal glandular Papanicolaou smear of cervix Abn. Pap smear (cervix) Anxiety state yrs started lexapro Cervical high risk human papillomavirus (HPV) DNA test positive 2006 2007 Complication of anesthesia ineffective Epidural COVID-19 12/19/2020 Erythema multiforme MEDINA CHINEDU SYNDROME Herpes simplex virus (HSV) infection HSDD 09/2020 start vag dhea Localized superficial swelling, mass, or lump 10/25/2009 LEFT AXILLA Migraine, unspecified, with intractable migraine, so stated, without mention of status migrainosus Migraine Papanicolaou smear of cervix with low grade squamous intraepithelial lesion (LGSIL) 2006 Pelvic congestion syndrome depression Symptomatic premature menopause 09/2020 neg fragile X neg celiac neg ovarian ab thrombocytopenia with previous Urinary tract infection, site not specified Recurrent UTI's PAST SURGICAL HISTORY Procedure Laterality Date BREAST BIOPSY 08/2018 Right Breast at [facility]; benign BX/EXC LYMPH NODE OPEN SUPERFICIAL 10/25/2009 LEFT AXILLA COLONOSCOPY 2018 COLPOSCOPY CERVIX UPPER/ADJACENT VAGINA 06/13/200604/08 Colposcopy MAMMOGRAM 12/2017 PAST SURGICAL HISTORY OF wisdom teeth TONSILLECTOMY PRIMARY/SECONDARY <AGE 14 Tonsillectomy ACTIVE PROBLEM LIST History of Thrombocytopenia History of Herpes Genitalis History of Depression Encounter for Supervision of Normal in Third Trimester Benign Gestational Thrombocytopenia in Third Trimester (Hcc) Positive Gbs Test HSDD Genitourinary Syndrome of Menopause Symptomatic premature menopause vs POI Hormone Replacement Therapy (Hrt) Snoring Allergies As of Date: 10/11/2021 Allergen Noted Reaction BACTRIM [SULFAMETHOXAZOLE-TRIMETH*2005 SULFA (SULFONAMIDE ANTIBIOTICS) 02/29/2008 Fully Assessed 09/06/2021 CURRENT MEDICATIONS: acetaminophen 300 mg-caffeine 40 mg-butalbital 50 mg (FIORICET) per capsule Take 1 capsule by mouth every 4 hours as needed. rizatriptan (MAXALT-RECOVERY ROOM RN) 10 mg disintegrating tablet Take 1 tablet by mouth as needed. May repeat in 2 hours if needed ondansetron orally disintegrating (ZOFRAN ODT) 4 mg disintegrating tablet Take 1 tablet by mouth every 6 hours as needed for nausea/vomiting. Cholecalciferol, Vitamin D3, 125 mcg (5,000 unit) cap Take 1 capsule by mouth once daily. Review of Systems SOCIAL HISTORY: Social History Tobacco Use Smoking status: Never Smoker Smokeless tobacco: Never Used Vaping Use Vaping Use: Never used Substance Use Topics Alcohol use: Not Currently Comment: rare Drug use: No FAMILY HISTORY: FAMILY HISTORY Problem Relation Age of Onset other (autoimmune disorders) Mother Emphysema Father acromegaly Hypertension Father age 57 Cancer Father lung other (healhty) Brother other (smoker) Brother Hypertension Brother other (smoker) Brother other (kidney transplant) Maternal Grandmother Stroke Maternal Grandfather Alzheimer's Disease Paternal Grandfather Heart Paternal Grandfather [place] other (healthy) Daughter other (healthy) Daughter other (healthy) Son Heart Paternal Uncle [place] There is no family history of sleep disorders. PHYSICAL EXAMINATION: Mental Status Examination: General: No acute distress wearing a disposable mask covering their nose and mouth Alertness: Alert Orientation: Oriented to person, place and time Eye contact: Good Mental attitude: Positive Historian: Reasonably good Constitutional: Pleasant and cooperative Speech Rate: Normal Speech Tone: Normal Speech Articulation: Normal Speech Spontaneity: Normal Bradyphrenia: None Loose Associations: None Thought Processes: Normal Tangential: No Circumstantial: No Abstraction: Normal Computation: Normal Suicidal thoughts: None Homicidal thoughts: None Hallucinations (Auditory, visual, gustatory): None Delusions: None EPS: None AIMS: 0 Violent ideations: None Paranoid thoughts: None Guarded: No Obsessions: None Phobias: None Judgement: Fair Insight: Fair to good Memory Recent: Good Memory Remote: Fair Fund of Knowledge: Intact Mood: Euthymic Affect: Reactive Physical Examination: Note that no supplement oxygen is in use No acute distress; consistent with age; the patient appears slightly tired IMPRESSION/PLAN: I: Hx of Anxiety Disorder NOS - euthymic Hx of Post depression - euthymic II: Deferred R06.83 Snoring (primary encounter diagnosis) G47.33 MENA (obstructive sleep apnea) Z86.2 History of thrombocytopenia E28.310 Symptomatic premature menopause vs POI N95.8 Genitourinary syndrome of menopause O99.113, D69.6 Benign gestational thrombocytopenia in third trimester (HCC) Migraine Cephalgias IV: 2 medical issues V: 89 now 89 past year She is not having a period now. She is being evaluated for this. Her mother entered menopause early. She will follow up with [facility] regarding this. I would screen patient for MENA by ordering a HSAT to start with. She may need to see ENT as is is unique that she is having these symptoms with her body habitus. I will follow up after the HSAT via [employer] and virtually. It would be best to avoid alcoholic beverages and any medication or substance that could theoretically be a respiratory depressant as this could exacerbate sleep disordered breathing. It was a pleasure seeing you today in our Sleep Medicine Center. Please remember to schedule a follow up appointment with me (or one of our Advance Practice Providers) either in person at the [facility] or virtually that fits your schedule. The appointment telephone number for the Sleep Disorder Center is [phone]. [employer]xus may also be used to schedule your next appointment. If you have any further questions regarding the diagnosis or recommendations, please do not hesitate to send me a kenxus message or call my nurse Abhishek at [phone] Extension #5. I spent a total time of over 60 minutes on the date of the service on this case. This included preparing to see the patient by reviewing the medical record prior to examining the patient, interviewing the patient face to face in the clinic or virtually via audio and video secure [facility] technology, ordering appropriate medications/tests/procedures, completing clinical documentation of the visit, counseling and educating the patient/family/caregiver, communicating with other health care providers as well as general care coordination. Damian Rojas DO, CBSM, ABSM Staff Physician [facility] [address] Mail Code [address] [place] [id number] documented in this encounter [facility] 10-04-2021 Instructions M Sourav Medel PA-C - 10/04/2021 4:07 PM EDT Chiro: Jessenia Hoffman [facility] Migraine Headache What is a migraine headache? A migraine headache is a special kind of headache that can last for hours to days. It can cause intense pain as well as other symptoms, such as feeling sick to your stomach or having changes in your vision. How does it occur? The exact cause of migraines is not known. Migraines may be related to a problem with the blood flow in your brain or they may happen when brain chemicals don't stay balanced. Migraine headaches tend to run in families and often are triggered by specific things. Common migraine triggers include: stress tiredness changes in the weather certain foods, such as wine, cheese, or chocolate MSG or food preservatives, such as nitrates red wine bright lights. Migraines tend to run in families. They affect women 3 times more often than men. They often occur during, or right before, a woman's menstrual period. Or they may happen when a woman is taking hormone pills. What are the symptoms? Before a migraine starts, there is often a warning period when you don't feel well. Some people lose part of their vision or see bright spots or zigzag patterns in front of their eyes. These symptoms, which may precede and predict a migraine headache, are called migraine aura. The vision changes of the aura usually go away as the headache begins. Many people with migraines do not have the visual symptoms. Migraine symptoms may include: throbbing or pounding headache extreme sensitivity to light and noise nausea and vomiting. The pain is usually more severe on one side of the head but can affect the whole head. Sometimes a migraine can cause symptoms such as numbness or even weakness. However, these can also be symptoms of a stroke. If you have these other symptoms along with problems with your vision, do not assume a migraine is the cause. Call your healthcare provider right away. How is it diagnosed? Your healthcare provider will ask about your symptoms and medical history and examine you. There are no lab tests or X-rays for diagnosing migraine headaches. However, your provider may order an imaging study of the brain to rule out problems in the brain that can cause other types of headaches. A careful history of your headaches is very helpful. Your healthcare provider may ask you to keep a headache diary in which you record the following: date and time of each attack how long the headache lasts type of pain (for example, dull, sharp, throbbing, or a feeling of pressure) location of pain any symptoms before the headache began foods and drinks you had before the headache began (This should include checking the ingredients in the product ingredient list of packaged foods you have eaten.) use of cigarettes, caffeine, alcohol, or carbonated drinks before the headache began time you went to bed and time you got up before the headache began if you are a woman, your menstrual periods and use of control pills or other female hormones. Depending on your headache symptoms, your provider may recommend tests to check for other, more serious causes of your symptoms. For example, you may have a brain scan or magnetic resonance imaging (MRI). How is it treated? Your healthcare provider may prescribe medicine that you can take as soon as you start having symptoms of a migraine. The medicine will help keep headaches from becoming severe once they start. Medicines most often used for this purpose are: A group of drugs called triptans available as tablets (including some that may be taken without water), a shot, and a nasal spray. Examples of triptans are almotriptan, eletriptan, frovatriptan, naratriptan, rizatriptan, sumatriptan, and zolmitriptan. Ergot medicines such as ergotamine, dihydroergotamine, ergonovine, and methysergide. Some of these medicines are shots your provider can give you, or you may learn how to give them to yourself. It's best to take these medicines as soon as possible after a headache begins. This means you need to recognize the warning symptoms. You may need to take other medicine every day to prevent severe and frequent headaches. Examples of drugs your provider may prescribe for this purpose are propranolol, verapamil, and antidepressants. You may not know if the medicine works for you until you have tried for several weeks. How long will the effects last? The headache may last from a few hours to a few days. You may tend to get migraines for the rest of your life. Many people find that they have migraines less often as they get older. How can I take care of myself? When a migraine begins: As soon as possible after headache symptoms begin, take the medicine recommended or prescribed by your healthcare provider. Rest in a quiet, dark room until the symptoms are gone. Putting a cool, moist washcloth on your forehead might help. Don't drive a car while you are having a migraine headache. If your symptoms get worse, or if they don't get better when you take medicine, make another appointment with your healthcare provider. It may take several visits to find the best way to control your headaches. Call your provider right away if: You have symptoms that are not usually part of your migraines, such as: trouble talking or slurred speech arm or leg weakness You have other symptoms such as: fever stiff neck repeated vomiting for several hours inability to move a body part (paralysis). How can I help prevent migraine headaches? Prevention is an important part of treatment. To help prevent migraine headaches: You may need to take medicine prescribed by your healthcare provider. You may need to avoid certain foods or activities suggested by your headache diary as possible triggers of headaches. Avoid foods from the following list if eating them seems to cause your headaches: wine, sharon, and beer aged and processed cheeses aged, canned, cured, and processed meats breads made with yeast and yeast extracts foods containing cheese, chocolate, or nuts Ask your provider about avoiding medicines that may trigger headaches. If you are taking control pills or other female hormones, ask your provider if you should stop taking them. Avoid smoking. Eat regular, healthy meals. Don't go too long without eating. Get regular rest and exercise. Try to reduce stress. Relaxation exercises and biofeedback may help you manage stress. For more information, call or write: [employer] [facility] [employer] [facility] ([facility]) Phone: [phone] ([phone]) Web site: http://www.achenet.orgPRIVATE TYPE=PICT;ALT= Tension Headache What is a tension headache? A tension headache is a headache caused by tense muscles in your face, neck, or scalp. It is also sometimes called a muscle-contraction headache. Tension headaches are very common. How does it occur? The muscles of your face, neck, and scalp may become tense because of: anxiety or stress staying in one position for a long time injury, such as in a car accident. depression. Headaches can also be triggered by: having too little or too much sleep eating too little or too much drinking too much alcohol being somewhere that is noisy working hard indoors or outdoors some medical conditions. What are the symptoms? The symptoms may be: a feeling like a tight band is around your head dull and steady pain that worsens through the day, sometimes with a sore neck trouble concentrating trouble sleeping pain that starts or gets worse with stress, fatigue, noise, or glare. Your muscles might twitch or spasm. Sometimes your head may feel like it is throbbing. How is it diagnosed? Your healthcare provider will ask about your symptoms and examine you. No single test can confirm that a headache is a tension headache. The diagnosis is based on your symptoms, medical history, and a physical exam. Your healthcare provider may ask: When did the headache start? How bad is it? Where is the pain located? What kind of pain is it? Is it sharp, burning, or throbbing? Do you have other symptoms, such as nerve tingling or weakness? Do you have a fever? Do you feel sick or vomit? Do you have eye pain or vision changes? Did you have an accident or injury before the pain started? Did you take any drugs before the pain started? Have you had other headaches like this one? What stresses are you having? What is your family history for headaches? Sometimes it is hard to know if a headache is a tension headache or a mild migraine headache. How is it treated? You can reduce muscle tightness and relieve pain with: nonprescription pain medicine relaxation exercises regular physical exercise. If the pain continues, your healthcare provider might: Refer you for physical therapy. Recommend biofeedback therapy (use of a machine to help you learn to control muscle tension). Prescribe a stronger pain reliever. How long will the effects last? Symptoms usually last a few hours to a day. Taking pain medicine too often for headaches can cause headaches. These headaches are called rebound headaches or drug-induced headaches. It can create a bad cycle: You have a headache, so you take pain medicine. When the pain medicine wears off it causes another headache, which causes you to take more medicine, which causes another headache. You are at risk for rebound headaches if you take pain medicine 3 or more days a week. Examples of nonprescription medicines that can cause rebound headaches are aspirin, acetaminophen, and ibuprofen. Some prescribed pain medicines can also cause this problem. Talk to your healthcare provider if you are taking medicine for headaches more often than 2 or 3 times a week. How can I take care of myself? Rest in a quiet, dark room until symptoms lessen or go away. Take a pain reliever such as aspirin, acetaminophen, ibuprofen, or other medicine your healthcare provider recommends or prescribes. Do this as soon as you notice symptoms. Recognizing early warning signs of headache and starting treatment right away is crucial to having less pain. Massage your neck, shoulders, and back. Put heat, an ice pack, or a cold washcloth on these areas. See your healthcare provider right away if: You have much more pain than your usual headaches. You have repeated vomiting. You have numbness or tingling in your face, arms, or legs. Your arms or legs feel weak. You have changes in your vision that do not go away. What can be done to help prevent tension headaches? Try to identify and avoid situations that cause tension or stress. Consider getting counseling to help you reduce the stress in your life. Learn to use relaxation techniques. Exercise regularly and get enough sleep. Try not to push yourself too hard. Eat meals regularly. Do not smoke. Do not drink a lot of alcohol. Keep your sense of humor. This reduces tension. You can get more information from: [employer] [place] [facility] [employer] [facility] ([facility]) Phone: 433-989-XGCI ([phone]) Web site: http://www.achenet.org Educational materials, referrals to support groups National Headache Foundation Web site: http://www.headaches.org Educational materials, list of headache specialists, information specialists Published by [employer]. This content is reviewed periodically and is subject to change as new health information becomes available. The information is intended to inform and educate and is not a replacement for medical evaluation, advice, diagnosis or treatment by a healthcare professional. Developed by [employer] Copyright 2007 [employer] and/or one of its subsidiaries. All Rights Reserved. Copyright [employer] 2007 [employer] Copyright 2007 [employer] Inc. All rights reserved. - www.[employer].com documented in this encounter [facility] 10-04-2021 History of Presen t illness Narrative 41 year old female with c/o hx migraines since 4th grade. 3 days, typical of chronic migraine. Onset after vacation. Had tension VIZCARRA, next day woke with severe headache, neck pain. Was having migraines once every couple months for a while, last three months every week or two. Stress level: doesn't feel stressed. Not having periods: Seeing Darlene Lopez. Current pain level 10 out of 10 Nausea without vomiting Similar quality as other migraines in the past. Identifies often wakes with a headache. Patient has been identified as snoring loudly and having interrupted breathing patterns during sleep. Does not feel that she is overly drowsy or falls asleep during the day. No visual scotomata or photophobia. Headaches cause nausea and weakness. No focal symptoms. Sumatriptan 50 mg is somewhat effective but patient states she does not like the way it makes her feel. HISTORIES FAMILY HISTORY Problem Relation Age of Onset other (autoimmune disorders) Mother Emphysema Father acromegaly Hypertension Father age 57 Cancer Father lung other (healhty) Brother other (smoker) Brother Hypertension Brother other (smoker) Brother other (kidney transplant) Maternal Grandmother Stroke Maternal Grandfather Alzheimer's Disease Paternal Grandfather Heart Paternal Grandfather [place] other (healthy) Daughter other (healthy) Daughter other (healthy) Son Heart Paternal Uncle IN PAST MEDICAL HISTORY Diagnosis Date Abnormal glandular Papanicolaou smear of cervix Abn. Pap smear (cervix) Anxiety state yrs started lexapro Cervical high risk human papillomavirus (HPV) DNA test positive 2006 2007 Complication of anesthesia ineffective Epidural COVID-19 12/19/2020 Erythema multiforme [employer] SYNDROME Herpes simplex virus (HSV) infection HSDD 09/2020 start vag dhea Localized superficial swelling, mass, or lump 10/25/2009 LEFT AXILLA Migraine, unspecified, with intractable migraine, so stated, without mention of status migrainosus Migraine Papanicolaou smear of cervix with low grade squamous intraepithelial lesion (LGSIL) 2006 Pelvic congestion syndrome depression Symptomatic premature menopause 09/2020 neg fragile X neg celiac neg ovarian ab thrombocytopenia with previous Urinary tract infection, site not specified Recurrent UTI's PAST SURGICAL HISTORY Procedure Laterality Date BREAST BIOPSY 08/2018 Right Breast at [facility]; benign BX/EXC LYMPH NODE OPEN SUPERFICIAL 10/25/2009 LEFT AXILLA COLONOSCOPY 2018 COLPOSCOPY CERVIX UPPER/ADJACENT VAGINA 06/13/200604/08 Colposcopy MAMMOGRAM 12/2017 PAST SURGICAL HISTORY OF wisdom teeth TONSILLECTOMY PRIMARY/SECONDARY <AGE 14 Tonsillectomy Social History Tobacco Use Smoking status: Never Smoker Smokeless tobacco: Never Used Vaping Use Vaping Use: Never used Substance Use Topics Alcohol use: Not Currently Comment: rare Drug use: No ACTIVE PROBLEM LIST History of Thrombocytopenia History of Herpes Genitalis History of Depression Encounter for Supervision of Normal in Third Trimester Benign Gestational Thrombocytopenia in Third Trimester (Hcc) Positive Gbs Test HSDD Genitourinary Syndrome of Menopause Symptomatic premature menopause vs POI Hormone Replacement Therapy (Hrt) Snoring Current Outpatient Medications Medication Sig Dispense Refill SUMAtriptan (IMITREX) 50 mg tablet Take 1 tablet by mouth as needed for migraine headache (see administration instructions). 12 tablet 1 Cholecalciferol, Vitamin D3, 125 mcg (5,000 unit) cap Take 1 capsule by mouth once daily. 30 capsule 11 No current facility-administered medications for this visit. DTAP,TDAP,TD(1 - Tdap) Never done EXAM: BP 90/58 Pulse 103 Temp 37.4 C (99.3 F) Resp 18 Wt 47.2 kg (104 lb) LMP 02/02/2021 SpO2 100% BMI 17.71 kg/m Pleasant thin adult woman in no acute distress. Alert and oriented all spheres. Normal affect and cognition. Speech normal. No deficits to learning or comprehension. Skin warm, dry, pink to lips and nailbeds. Normal turgor. Respirations regular and unlabored. HEENT: NCAT. PERRLA. Sharp light disc. No scleral icterus or conjunctival injection. TM's clear. Nose and oropharynx free from injection or lesion. Oral membranes moist and pink. No cervical lymph nodes. Thyroid non-tender, no masses, or enlargement. Carotids pulses 2+/4+ without bruits. Neck is supple but she does have restrictions on lateral rotation and sidebending to the right. Tender trigger points bilaterally TMJs, SCM, posterior occipital Extrem: no clubbing or cyanosis. Edema: none. Extremities are warm and pink with prompt capillary refill. Cranial nerves II through XII are grossly intact. No meningeal signs. Patient was offered injection of Toradol and ondansetron: Refused due to dislike for injections. OMT: Myofascial release to bilateral TMJs, anterior posterior cervical muscles, HVLA right C7 and Thoracic segments with significant pain relief. Pain level was reduced to 3 out of 10, significant improvement. ASSESSMENT/PLAN: 1. Mixed headache - ICD9: 784.0, ICD10: R51.9 (primary diagnosis) Courage patient to keep a log of headaches, associated food or beverage intake, associated stress factors, log of location, intensity, duration of symptoms, alleviating measures. Reviewed new medication administration, warnings, adverse effects. Identified potential habituation from butalbital so use sparingly. Offered consult to headache clinic, patient is asking if she can follow-up for OMT initially in the interim before she makes a decision to go further. Would like to switch her to rizatriptan for faster onset. - [id number]-KNISFTV E 50 MG-300 MG-40 MG CAPSULE - RIZATRIPTAN 10 MG DISINTEGRATING TABLET - ONDANSETRON 4 MG DISINTEGRATING TABLET 2. Stress reaction - ICD9: 308.9, ICD10: F43.0 As we discussed etiology, I persisted a little in identifying what I know to be true in terms of stress and anxiety from personal contact outside the office. Patient was able to identify that she needs a mentor, possible counselor. Options were suggested. Follow-up as needed. Lavinia Medel PA-C documented in this encounter [facility] 09-06-2021 History of Presen t illness Narrative Chief Complaint Patient presents with: Headache: migraines several x a month starts with neck pain and then takes approx 2 days before shes back to baseline. HPI Gabriela Turk is a 41 year old female who presents here today for Above Complaints.. Patient with history of migraines which have been more frequent over the last year. Occurs a couple times per month. Described as aching pain on either side of her neck which radiates around the side of her head. Associated with nausea and vomiting and photophobia. Denies auras, vision changes. Headaches last about day and a half. Not on medication for headaches currently. Has tried naproxen in the past without improvement. Was on Elavil and imitrex in high school which did help. OTC medications do not help at all. Tried getting massages which makes her headaches worse. Does not keep headache diary. Denies possibility of , has not had period in a year and has had vasectomy. Past medical history, appointments, medications, allergies reviewed. Previous Medical History PAST MEDICAL HISTORY Diagnosis Date Abnormal glandular Papanicolaou smear of cervix Abn. Pap smear (cervix) Anxiety state yrs started lexapro Cervical high risk human papillomavirus (HPV) DNA test positive 2006 2007 Complication of anesthesia ineffective Epidural COVID-19 12/19/2020 Erythema multiforme [employer] SYNDROME Herpes simplex virus (HSV) infection HSDD 09/2020 start vag dhea Localized superficial swelling, mass, or lump 10/25/2009 LEFT AXILLA Migraine, unspecified, with intractable migraine, so stated, without mention of status migrainosus Migraine Papanicolaou smear of cervix with low grade squamous intraepithelial lesion (LGSIL) 2006 Pelvic congestion syndrome depression Symptomatic premature menopause 09/2020 neg fragile X neg celiac neg ovarian ab thrombocytopenia with previous Urinary tract infection, site not specified Recurrent UTI's Previous Surgical History PAST SURGICAL HISTORY Procedure Laterality Date BREAST BIOPSY 08/2018 Right Breast at [facility]; benign BX/EXC LYMPH NODE OPEN SUPERFICIAL 10/25/2009 LEFT AXILLA COLONOSCOPY 2018 COLPOSCOPY CERVIX UPPER/ADJACENT VAGINA 06/13/200604/08 Colposcopy MAMMOGRAM 12/2017 PAST SURGICAL HISTORY OF wisdom teeth TONSILLECTOMY PRIMARY/SECONDARY <AGE 14 Tonsillectomy Family History FAMILY HISTORY Problem Relation Age of Onset other (autoimmune disorders) Mother Emphysema Father acromegaly Hypertension Father age 57 Cancer Father lung other (healhty) Brother other (smoker) Brother Hypertension Brother other (smoker) Brother other (kidney transplant) Maternal Grandmother Stroke Maternal Grandfather Alzheimer's Disease Paternal Grandfather Heart Paternal Grandfather [place] other (healthy) Daughter other (healthy) Daughter other (healthy) Son Heart Paternal Uncle IN Patient Allergies ALLERGIES Allergen Reactions Bactrim [Sulfametho* MED[employer] CH[employer]EDU SYNDROME Sulfa (Sulfonamide * Current Medications Current Outpatient Medications on File Prior to Visit Medication Sig Cholecalciferol, Vitamin D3, 125 mcg (5,000 unit) cap Take 1 capsule by mouth once daily. Estradiol-Norethindrone Acet (MIMVEY LO) 0.5-0.1 mg Take 1 tablet by mouth once daily. (Patient not taking: Reported on 09/06/2021 ) conjugated estrogens (PREMARIN) vaginal cream Use 0.5 g vaginally two times a week. (Patient not taking: Reported on 09/06/2021 ) No current facility-administered medications on file prior to visit. Social History Social History Tobacco Use Smoking status: Never Smoker Smokeless tobacco: Never Used Vaping Use Vaping Use: Never used Substance Use Topics Alcohol use: Not Currently Comment: rare Drug use: No Review of Symptoms REVIEW OF SYSTEMS See HPI EXAM: BP 104/60 Pulse 79 Resp 16 Wt 48 kg (105 lb 12.8 oz) LMP 02/02/2021 SpO2 97% BMI 18.02 kg/m General Appearance: Well appearing, alert, in no acute distress, well-hydrated, well nourished.. Skin: Skin color, texture, turgor normal, no suspicious rashes or lesions. Neck: Normal ROM without TTP over paraspinal muscles or cervical spine. Lungs: Lungs clear to auscultation. No wheezing, rhonchi, rales.. Heart: RRR without murmur, gallop, or rubs. No ectopy. Health Maintenance List DTAP,TDAP,TD(1 - Tdap) Never done COVID-19 VACCINE(1) due on 10/12/2021 DEPRESSION SCREENING due on 10/11/2021 INFLUENZA(Season Ended) due on 11/29/2021 PAP TESTING due on 03/20/2026 HPV TESTING due on 03/20/2026 HEPATITIS C SCREENING Completed HIV SCREENING Completed ASSESSMENT/PLAN: 1. Migraine with aura, not intractable, without status migrainosus - ICD9: 346.00, ICD10: G43.109 Start imitrex PRN and keep headache diary. Avoid triggers. Call if not improving or if more frequent and would reconsider addition of Elavil or propranolol to regimen. - SUMATRIPTAN 50 MG TABLET Thomas Vigil MD documented in this encounter [facility] 07-12-2021 Miscellaneous Notes LV 01/29/2021 Symptomatic premature menopause vs POI (primary encounter diagnosis) Comment: doesn't like cycled HT doesn't want ocp can take oral P days 1-12 alone see if bleeds if bleeds hen her body making some estrogen IF no bleeding on cycled Progesterone then can start daily mimveylo Called Patient. Verified name and . Pt states that she has still not gotten a period and has concerns that she is so young. Pt also states that she prefers to continue the climara and requesting Prometrium to continue. Pt transferred to scheduling. Kasia Zuñiga July 12, 2021 11:36 AM Good morning pt of Dr Juarez left message on my line asking could she speak with a nurse on the phone per patient didn't want to send question through the [employer] pt phone is [phone] documented in this encounter [facility] 06-25-2021 Miscellaneous Notes Attempted to reach patient. Left VM asking that patient call office back to clarify prescription needs and advised patient on how to transfer prescription to a new pharmacy. Will send my chart message. BEENA: 01/29/2021 Symptomatic premature menopause vs POI (primary encounter diagnosis) Comment: doesn't like cycled HT doesn't want ocp can take oral P days 1-12 alone see if bleeds if bleeds hen her body making some estrogen IF no bleeding on cycled Progesterone then can start daily mimveylo [facility] Comment: can use 0.5 gram twice weekly conjugated estrogens (PREMARIN) vaginal cream Future appt: None Francine Jay RN June 25, 2021 12:54 PM documented in this encounter [facility] documented as of this encounter (statuses as of 04/04/2022) [facility] History of Past illness Narrative* Problem Noted Date Resolved Date Positive GBS test 04/04/2016 04/02/2022 Benign gestational thrombocytopenia in third tri mester 02/07/2016 04/02/2022 Overview: Repeat monthly Anahi Wagoner MD Encounter for supervision of normal in third trimester 02/02/2016 04/02/2022 Overview: Girl on us- History of thrombocytopenia 09/21/201505/2022 Overview: 09/21/2015Pt was diagnosed with mild thrombocytopenia her last .. No problems with first . Saw Dr Snyder. History of herpes genitalis 09/21/201511/2021 Overview: 09/21/2015She has a history of genital herpes Discussed importance of reporting any outbreaks of HSV during .TKRN History of depression 09/21/2015 04/02/2022 Overview: 09/21/2015 Pt states she has a history of depression that lasted about a month after the of her last child. Pt states she never took medication to treat it. Pt denies ever having any suicidal thoughts or tendencies or thoughts of hurting others.Discussed increased risks of depression during and and importance of reporting the development or worsening of symptoms should they occur. TKRN Patient requested diagnostic testing 09/21/2015 09/21/2015 Thrombocytopenia, unspecified 01/16/2010 Unspecified symptom associated with female genit al organs 02/21/2009 07/09/2013 Dyspareunia 02/21/2009 07/09/2013 Cervical high risk human pap illomavirus (HPV) DNA test positive 04/12/2008 07/09/2013 Genital herpes, unspecified 02/29/200806/29 Supervision of normal first 05/13/2006 11/14/2006 documented as of this encounter (statuses as of 04/23/2022) [facility] History of Past illness Narrative* Problem Noted Date Resolved Date Positive GBS test 04/04/2016 04/02/2022 Benign gestational thrombocytopenia in third tri mester 02/07/2016 04/02/2022 Overview: Repeat monthly Anahi Wagoner MD Encounter for supervision of normal in third trimester 02/02/2016 04/02/2022 Overview: Girl on us- History of thrombocytopenia 09/21/201505/2022 Overview: 09/21/2015Pt was diagnosed with mild thrombocytopenia her last .. No problems with first . Saw Dr Snyder. History of herpes genitalis 09/21/201511/2021 Overview: 09/21/2015She has a history of genital herpes Discussed importance of reporting any outbreaks of HSV during .TKRN History of depression 09/21/2015 04/02/2022 Overview: 09/21/2015 Pt states she has a history of depression that lasted about a month after the of her last child. Pt states she never took medication to treat it. Pt denies ever having any suicidal thoughts or tendencies or thoughts of hurting others.Discussed increased risks of depression during and and importance of reporting the development or worsening of symptoms should they occur. TKRN Patient requested diagnostic testing 09/21/2015 09/21/2015 Thrombocytopenia, unspecified 01/16/2010 Unspecified symptom associated with female genit al organs 02/21/2009 07/09/2013 Dyspareunia 02/21/2009 07/09/2013 Cervical high risk human pap illomavirus (HPV) DNA test positive 04/12/2008 07/09/2013 Genital herpes, unspecified 02/29/200806/29 Supervision of normal first 05/13/2006 11/14/2006 documented as of this encounter (statuses as of 05/28/2022) [facility] History of Past illness Narrative* Problem Noted Date Diagnosed Date Resolved Date Positive GBS test 04/04/2016 04/02/2022 Benign gestational thrombocy topenia in third trimester 02/07/2016 04/02/2022 Overview: Repeat monthly Anahi Wagoner MD Encounter for supervision of normal in third trimester 02/02/2016 04/02/2022 Overview: Girl on us- History of thrombocytopenia 09/21/2015 04/02/2022 Overview: 09/21/2015Pt was diagnosed with mild thrombocytopenia her last .. No problems with first . Saw Dr Snyder. History of herpes genitalis 09/21/2015 11/06/2021 Overview: 09/21/2015She has a history of genital herpes Discussed importance of reporting any outbreaks of HSV during .TKRN History of depression 09/21/2015 04/02/2022 Overview: 09/21/2015 Pt states she has a history of depression that lasted about a month after the of her last child. Pt states she never took medication to treat it. Pt denies ever having any suicidal thoughts or tendencies or thoughts of hurting others.Discussed increased risks of depression during and and importance of reporting the development or worsening of symptoms should they occur. TKRN Patient requested diagnostic testing 09/21/2015 09/21/2015 Thrombocytopenia, unspecified 01/16/2010 07/09/2013 Unspecified symptom associat ed with female genital organs 02/21/2009 07/09/2013 Dyspareunia 02/21/2009 07/09/2013 Cervical high risk human pap illomavirus (HPV) DNA test positive 04/12/2008 07/09/2013 Genital herpes, unspecified 02/29/2008 07/09/2013 Supervision of normal first 05/13/2006 11/14/2006 documented as of this encounter (statuses as of 12/24/2022) [facility] History of Past illness Narrative* Problem Noted Date Diagnosed Date Resolved Date Positive GBS test 04/04/2016 04/02/2022 Benign gestational thrombocy topenia in third trimester 02/07/2016 04/02/2022 Overview: Repeat monthly Anahi Wagoner MD Encounter for supervision of normal in third trimester 02/02/2016 04/02/2022 Overview: Girl on us- History of thrombocytopenia 09/21/2015 04/02/2022 Overview: 09/21/2015Pt was diagnosed with mild thrombocytopenia her last .. No problems with first . Saw Dr Snyder. History of herpes genitalis 09/21/2015 11/06/2021 Overview: 09/21/2015She has a history of genital herpes Discussed importance of reporting any outbreaks of HSV during .TKRN History of depression 09/21/2015 04/02/2022 Overview: 09/21/2015 Pt states she has a history of depression that lasted about a month after the of her last child. Pt states she never took medication to treat it. Pt denies ever having any suicidal thoughts or tendencies or thoughts of hurting others.Discussed increased risks of depression during and and importance of reporting the development or worsening of symptoms should they occur. TKRN Patient requested diagnostic testing 09/21/2015 09/21/2015 Thrombocytopenia, unspecified 01/16/2010 07/09/2013 Unspecified symptom associat ed with female genital organs 02/21/2009 07/09/2013 Dyspareunia 02/21/2009 07/09/2013 Cervical high risk human pap illomavirus (HPV) DNA test positive 04/12/2008 07/09/2013 Genital herpes, unspecified 02/29/2008 07/09/2013 Supervision of normal first 05/13/2006 11/14/2006 documented as of this encounter (statuses as of 01/15/2023) [facility]2017 History of Past illness Narrative* Problem Noted Date Diagnosed Date Resolved Date Positive GBS test 04/04/2016 04/02/2022 Benign gestational thrombocy topenia in third trimester 02/07/2016 04/02/2022 Overview: Repeat monthly Anahi Wagoner MD Encounter for supervision of normal in third trimester 02/02/2016 04/02/2022 Overview: Girl on us- History of thrombocytopenia 09/21/2015 04/02/2022 Overview: 09/21/2015Pt was diagnosed with mild thrombocytopenia her last .. No problems with first . Saw Dr Snyder. History of herpes genitalis 09/21/2015 11/06/2021 Overview: 09/21/2015She has a history of genital herpes Discussed importance of reporting any outbreaks of HSV during .TKRN History of depression 09/21/2015 04/02/2022 Overview: 09/21/2015 Pt states she has a history of depression that lasted about a month after the of her last child. Pt states she never took medication to treat it. Pt denies ever having any suicidal thoughts or tendencies or thoughts of hurting others.Discussed increased risks of depression during and and importance of reporting the development or worsening of symptoms should they occur. TKRN Patient requested diagnostic testing 09/21/2015 09/21/2015 Thrombocytopenia, unspecified 01/16/2010 07/09/2013 Unspecified symptom associat ed with female genital organs 02/21/2009 07/09/2013 Dyspareunia 02/21/2009 07/09/2013 Cervical high risk human pap illomavirus (HPV) DNA test positive 04/12/2008 07/09/2013 Genital herpes, unspecified 02/29/2008 07/09/2013 Supervision of normal first 05/13/2006 11/14/2006 documented as of this encounter (statuses as of 02/02/2023) [facility] History of Past illness Narrative* Problem Noted Date Diagnosed Date Resolved Date Positive GBS test 04/04/2016 04/02/2022 Benign gestational thrombocy topenia in third trimester 02/07/2016 04/02/2022 Overview: Repeat monthly Anahi Wagoner MD Encounter for supervision of normal in third trimester 02/02/2016 04/02/2022 Overview: Girl on us- History of thrombocytopenia 09/21/2015 04/02/2022 Overview: 09/21/2015Pt was diagnosed with mild thrombocytopenia her last .. No problems with first . Saw Dr Snyder. History of herpes genitalis 09/21/2015 11/06/2021 Overview: 09/21/2015She has a history of genital herpes Discussed importance of reporting any outbreaks of HSV during .TKRN History of depression 09/21/2015 04/02/2022 Overview: 09/21/2015 Pt states she has a history of depression that lasted about a month after the of her last child. Pt states she never took medication to treat it. Pt denies ever having any suicidal thoughts or tendencies or thoughts of hurting others.Discussed increased risks of depression during and and importance of reporting the development or worsening of symptoms should they occur. TKRN Patient requested diagnostic testing 09/21/2015 09/21/2015 Thrombocytopenia, unspecified 01/16/2010 07/09/2013 Unspecified symptom associat ed with female genital organs 02/21/2009 07/09/2013 Dyspareunia 02/21/2009 07/09/2013 Cervical high risk human pap illomavirus (HPV) DNA test positive 04/12/2008 07/09/2013 Genital herpes, unspecified 02/29/2008 07/09/2013 Supervision of normal first 05/13/2006 11/14/2006 documented as of this encounter (statuses as of 02/02/2023) [facility] History of Past illness Narrative* Problem Noted Date Resolved Date Patient requested diagnostic testing 09/21/2015 09/21/2015 Thrombocytopenia, unspecified 01/16/2010 Unspecified symptom associated with female genit al organs 02/21/2009 07/09/2013 Dyspareunia 02/21/2009 07/09/2013 Cervical high risk human pap illomavirus (HPV) DNA test positive 04/12/2008 07/09/2013 Genital herpes, unspecified 02/29/200806/29 Supervision of normal first 05/13/2006 11/14/2006 documented as of this encounter (statuses as of 06/25/2021) [facility] History of Past illness Narrative* Problem Noted Date Resolved Date Patient requested diagnostic testing 09/21/2015 09/21/2015 Thrombocytopenia, unspecified 01/16/2010 Unspecified symptom associated with female genit al organs 02/21/2009 07/09/2013 Dyspareunia 02/21/2009 07/09/2013 Cervical high risk human pap illomavirus (HPV) DNA test positive 04/12/2008 07/09/2013 Genital herpes, unspecified 02/29/200806/29 Supervision of normal first 05/13/2006 11/14/2006 documented as of this encounter (statuses as of 08/22/2021) [facility] History of Past illness Narrative* Problem Noted Date Resolved Date Patient requested diagnostic testing 09/21/2015 09/21/2015 Thrombocytopenia, unspecified 01/16/2010 Unspecified symptom associated with female genit al organs 02/21/2009 07/09/2013 Dyspareunia 02/21/2009 07/09/2013 Cervical high risk human pap illomavirus (HPV) DNA test positive 04/12/2008 07/09/2013 Genital herpes, unspecified 02/29/200806/29 Supervision of normal first 05/13/2006 11/14/2006 documented as of this encounter (statuses as of 09/07/2021) [facility] History of Past illness Narrative* Problem Noted Date Resolved Date Patient requested diagnostic testing 09/21/2015 09/21/2015 Thrombocytopenia, unspecified 01/16/2010 Unspecified symptom associated with female genit al organs 02/21/2009 07/09/2013 Dyspareunia 02/21/2009 07/09/2013 Cervical high risk human pap illomavirus (HPV) DNA test positive 04/12/2008 07/09/2013 Genital herpes, unspecified 02/29/200806/29 Supervision of normal first 05/13/2006 11/14/2006 documented as of this encounter (statuses as of 10/05/2021) [facility] History of Past illness Narrative* Problem Noted Date Resolved Date Patient requested diagnostic testing 09/21/2015 09/21/2015 Thrombocytopenia, unspecified 01/16/2010 Unspecified symptom associated with female genit al organs 02/21/2009 07/09/2013 Dyspareunia 02/21/2009 07/09/2013 Cervical high risk human pap illomavirus (HPV) DNA test positive 04/12/2008 07/09/2013 Genital herpes, unspecified 02/29/200806/29 Supervision of normal first 05/13/2006 11/14/2006 documented as of this encounter (statuses as of 10/09/2021) [facility] History of Past illness Narrative* Problem Noted Date Resolved Date Patient requested diagnostic testing 09/21/2015 09/21/2015 Thrombocytopenia, unspecified 01/16/2010 Unspecified symptom associated with female genit al organs 02/21/2009 07/09/2013 Dyspareunia 02/21/2009 07/09/2013 Cervical high risk human pap illomavirus (HPV) DNA test positive 04/12/2008 07/09/2013 Genital herpes, unspecified 02/29/200806/29 Supervision of normal first 05/13/2006 11/14/2006 documented as of this encounter (statuses as of 10/11/2021) [facility] History of Past illness Narrative* Problem Noted Date Resolved Date Patient requested diagnostic testing 09/21/2015 09/21/2015 Thrombocytopenia, unspecified 01/16/2010 Unspecified symptom associated with female genit al organs 02/21/2009 07/09/2013 Dyspareunia 02/21/2009 07/09/2013 Cervical high risk human pap illomavirus (HPV) DNA test positive 04/12/2008 07/09/2013 Genital herpes, unspecified 02/29/200806/29 Supervision of normal first 05/13/2006 11/14/2006 documented as of this encounter (statuses as of 11/02/2021) [facility] History of Past illness Narrative* Problem Noted Date Resolved Date History of herpes genitalis 09/21/2015 08/0 11/2021 Overview: 09/21/2015She has a history of genital herpes Discussed importance of reporting any outbreaks of HSV during .TKRN Patient requested diagnostic testing 09/21/2015 09/21/2015 Thrombocytopenia, unspecified 01/16/2010 Unspecified symptom associated with female genit al organs 02/21/2009 07/09/2013 Dyspareunia 02/21/2009 07/09/2013 Cervical high risk human pap illomavirus (HPV) DNA test positive 04/12/2008 07/09/2013 Genital herpes, unspecified 02/29/200806/29 Supervision of normal first 05/13/2006 11/14/2006 documented as of this encounter (statuses as of 11/06/2021) [facility] History of Past illness Narrative* Problem Noted Date Resolved Date History of herpes genitalis 09/21/201511/2021 Overview: 09/21/2015Catherine has a history of genital herpes Discussed importance of reporting any outbreaks of HSV during .TKRN Patient requested diagnostic testing 09/21/2015 09/21/2015 Thrombocytopenia, unspecified 01/16/2010 Unspecified symptom associated with female genit al organs 02/21/2009 07/09/2013 Dyspareunia 02/21/2009 07/09/2013 Cervical high risk human pap illomavirus (HPV) DNA test positive 04/12/2008 07/09/2013 Genital herpes, unspecified 02/29/200806/29 Supervision of normal first 05/13/2006 11/14/2006 documented as of this encounter (statuses as of 11/08/2021) [facility] History of Past illness Narrative* Problem Noted Date Resolved Date History of herpes genitalis 09/21/201511/2021 Overview: 09/21/2015Catherine has a history of genital herpes Discussed importance of reporting any outbreaks of HSV during .TKRN Patient requested diagnostic testing 09/21/2015 09/21/2015 Thrombocytopenia, unspecified 01/16/2010 Unspecified symptom associated with female genit al organs 02/21/2009 07/09/2013 Dyspareunia 02/21/2009 07/09/2013 Cervical high risk human pap illomavirus (HPV) DNA test positive 04/12/2008 07/09/2013 Genital herpes, unspecified 02/29/200806/29 Supervision of normal first 05/13/2006 11/14/2006 documented as of this encounter (statuses as of 11/08/2021) [facility] History of Past illness Narrative* Problem Noted Date Resolved Date History of herpes genitalis 09/21/201511/2021 Overview: 09/21/2015She has a history of genital herpes Discussed importance of reporting any outbreaks of HSV during .TKRN Patient requested diagnostic testing 09/21/2015 09/21/2015 Thrombocytopenia, unspecified 01/16/2010 Unspecified symptom associated with female genit al organs 02/21/2009 07/09/2013 Dyspareunia 02/21/2009 07/09/2013 Cervical high risk human pap illomavirus (HPV) DNA test positive 04/12/2008 07/09/2013 Genital herpes, unspecified 02/29/200806/29 Supervision of normal first 05/13/2006 11/14/2006 documented as of this encounter (statuses as of 11/16/2021) [facility] History of Past illness Narrative* Problem Noted Date Resolved Date History of herpes genitalis 09/21/201511/2021 Overview: 09/21/2015Heydie has a history of genital herpes Discussed importance of reporting any outbreaks of HSV during .TKRN Patient requested diagnostic testing 09/21/2015 09/21/2015 Thrombocytopenia, unspecified 01/16/2010 Unspecified symptom associated with female genit al organs 02/21/2009 07/09/2013 Dyspareunia 02/21/2009 07/09/2013 Cervical high risk human pap illomavirus (HPV) DNA test positive 04/12/2008 07/09/2013 Genital herpes, unspecified 02/29/200806/29 Supervision of normal first 05/13/2006 11/14/2006 documented as of this encounter (statuses as of 11/27/2021) [facility] History of Past illness Narrative* Problem Noted Date Resolved Date History of herpes genitalis 09/21/201511/2021 Overview: 09/21/2015She has a history of genital herpes Discussed importance of reporting any outbreaks of HSV during .TKRN Patient requested diagnostic testing 09/21/2015 09/21/2015 Thrombocytopenia, unspecified 01/16/2010 Unspecified symptom associated with female genit al organs 02/21/2009 07/09/2013 Dyspareunia 02/21/2009 07/09/2013 Cervical high risk human pap illomavirus (HPV) DNA test positive 04/12/2008 07/09/2013 Genital herpes, unspecified 02/29/200806/29 Supervision of normal first 05/13/2006 11/14/2006 documented as of this encounter (statuses as of 12/20/2021) [facility] History of Past illness Narrative* Problem Noted Date Resolved Date History of herpes genitalis 09/21/201511/2021 Overview: 09/21/2015She has a history of genital herpes Discussed importance of reporting any outbreaks of HSV during .TKRN Patient requested diagnostic testing 09/21/2015 09/21/2015 Thrombocytopenia, unspecified 01/16/2010 Unspecified symptom associated with female genit al organs 02/21/2009 07/09/2013 Dyspareunia 02/21/2009 07/09/2013 Cervical high risk human pap illomavirus (HPV) DNA test positive 04/12/2008 07/09/2013 Genital herpes, unspecified 02/29/200806/29 Supervision of normal first 05/13/2006 11/14/2006 documented as of this encounter (statuses as of 01/15/2022) [facility] + Plan note Future Appointments Appointment Date:12/11/2021 02:30:00 PM Scheduled Provider: Location:[facility] Appointment Type:MRI Brain w/ + w/o Contrast Future Scheduled Tests Radiology* MRI Brain w/ + w/o Contrast 12/11/21 [facility] Evaluation note* Diagnosis GSM [facility] Diagnosis Migraine with aura, not intractable, without status migrainosus- Primary [facility]* Diagnosis Mixed headache- Primary Headache Stress reaction Unspecified acute reaction to stress [facility] Snoring- Primary Other dyspnea and respiratory abnormality MENA (obstructive sleep apnea) Obstructive sleep apnea (adult) (pediatric) History of thrombocytopenia Personal history of diseases of blood and blood-forming organs Symptomatic premature menopause vs POI Premature menopause Genitourinary syndrome of menopause Benign gestational thrombocytopenia in third trimester (HCC) [facility] Diagnosis Symptomatic premature menopause- Primary Premature menopause [facility] Diagnosis Symptomatic premature menopause vs POI- Primary Premature menopause Hormone replacement therapy (HRT) Need for prophylactic hormone replacement therapy (postmenopausal) GSM HSDD-aquired Hypoactive sexual desire disorder [facility] Diagnosis Swollen finger- Primary Swelling of limb Chronic right-sided low back pain, unspecified whether sciatica present [facility]* Diagnosis Anxiety with depression- Primary [facility] Diagnosis Symptomatic premature menopause- Primary Premature menopause Joint pain in both hands Acne, unspecified acne type [facility] Diagnosis Encounter for gynecological examination without abnormal finding- Primary Routine gynecological examination Encounter for screening mammogram for malignant neoplasm of breast Other screening mammogram Dense breast tissue on mammogram Encounter for screening for malignant neoplasm of cervix Screening for malignant neoplasm of the cervix Special screening examination for human papillomavirus (HPV) [facility] Diagnosis Abnormal uterine bleeding- Primary Unspecified disorder of menstruation and other abnormal bleeding from female genital tract [facility] Diagnosis RLQ abdominal pain- Primary Abdominal pain, right lower quadrant [facility] Diagnosis Encounter for screening mammogram for malignant neoplasm of breast Other screening mammogram Dense breast tissue on mammogram [facility] Diagnosis Abnormal uterine bleeding Unspecified disorder of menstruation and other abnormal bleeding from female genital tract [facility] N[facility] No data available for this section [facility] Hospital Discharge instructions No data available for this section [facility] Progress note No data available for this section [facility] for referral (narrative)* Diagnostic Procedure Only (Routine) - Pending Review Specialty Diagnoses / Procedures Referred By Contac t Referred To Contact [facility] Diagnoses Snoring MENA (obstructive sleep apnea) Procedures HOME SLEEP APNEA TEST (HSAT) SLEEP STD AIRFLOW HRT RATE&O2 SAT EFFORT Damian Tolentino DO [address] [place] [address] [facility] [address] [place], [place] [id number] Referral ID Status Reason Start Date Expiration Date Visits Requested Visits Authorized [id number] Pending Review Auto-Generat ed Referral 10/11/2021 10/11/2022 1 1 [facility] for referral (narrative)* Diagnostic Procedure Only (Routine) - Pending Review Specialty Diagnoses / Procedures Referred By Contac t Referred To Contact [facility] Diagnoses Symptomatic premature menopause Procedures PELVIC US WHI US PELVIC NONOBSTETRIC REAL-TIME IMAGE COMPLETE Addison Juarez MD [address] [place] [address] [facility] [address] [place] [address] Referral ID Status Reason Start Date Expiration Date Visits Requested Visits Authorized [id number] Pending Review Auto-Generat ed Referral 11/06/2021 11/06/2022 1 1 [facility] for referral (narrative)* Diagnostic Procedure Only (Routine) - Closed Specialty Diagnoses / Procedures Referred By Contac t Referred To Contact XR IMAGING Diagnoses Chronic right-sided low back pain, unspecified whether sciatica present Procedures XR LUMBAR GENERAL 3V AP/LAT/L5-S1 RADEX SPINE LUMBOSACRAL 2/3 VIEWS Heather Ribera, PATIENT ACCESS COORDINATOR.[address] [place] [address] Xr Imaging Referral ID Status Reason Start Date Expiration Date V isits Requested Visits Authorized [id number] Closed Auto-Generate d Referral 11/27/2021 03/30/2022 1 1 T [facility] for referral (narrative)* Diagnostic Procedure Only (Routine) - Authorized Specialty Diagnoses / Procedures Referred By Contac t Referred To Contact [facility] Diagnoses Encounter for screening mammogram for malignant neoplasm of breast Dense breast tissue on mammogram Procedures MIGUEL ANGEL SCREENING W HARPAL SCREENING DIGITAL BREAST TOMOSYNTHESIS BI SCREENING MAMMOGRAPHY BI 2-VIEW BREAST INC CAD Johnna Lopez MD [address] [place] [address] [facility] [address] [place] [address] Referral ID Status Reason Start Date Expiration Date Visits Requested Visits Authorized [id number] Authorized Auto-Generat ed Referral 04/02/2022 05/02/2023 1 1 [facility] for referral (narrative)* Diagnostic Procedure Only (Routine) - Authorized Specialty Diagnoses / Procedures Referred By Stacieac t Referred To Contact [facility] IM[facility] Diagnoses Abnormal uterine bleeding Procedures US FEMALE PELVIS TRANSVAG US TRANSVAGINAL Johnna Lopez MD [address] [place] [address] [place] [address] Referral ID Status Reason Start Date Expiration Date Visits Requested Visits Authorized [id number] Authorized Auto-Generat ed Referral 12/24/2022 01/23/2024 [address] [facility] for referral (narrative)* Diagnostic Procedure Only (Routine) - Closed Specialty Diagnoses / Procedures Referred By Contac t Referred To Contact [facility] IMAGING Diagnoses Abnormal uterine bleeding Procedures US FEMALE PELVIS TRANSVAG US TRANSVAGINAL Johnna Lopez MD [address] [place] [address] [place] [address] Referral ID Status Reason Start Date Expiration Date V isits Requested Visits Authorized [id number] Closed Auto-Generate d Referral 12/24/2022 01/23/2024 1 1 [facility] Reason for Referral Specialty Diagnoses / Procedures Referred By Mauro t Referred To Contact Diagnoses Symptomatic premature menopause Procedures CONSULT TO MEDICAL GENETICS - GENERAL OFFICE/OUTPATIENT [facility] 60-74 MINUTES MEDICAL GENETICS COUNSELING EACH 30 MINUTES Edie Kemp MD [address] [place] [address] [facility] [address] [place] [id number] Referral ID Status Reason Start Date Expiration Date Visits Requested Visits Authorized [id number] Pending Review PCP Requested Referral Auto-Generate d Referral 11/01/2021 11/01/2022 1 1 Specialty Diagnoses / Procedures Referred By Muaro t Referred To Contact Endocrinology Diagnoses Symptomatic premature menopause Procedures CONSULT TO ENDOCRINOLOGY OFFICE/OUTPATIENT [facility] 60-74 MINUTES Edie Kemp MD [address] [place] [address] Referral ID Status Reason Start Date Expiration Date Visits Requested Visits Authorized [id number] Pending Review PCP Requested Referral 11/01/2021 11/01/2022 1 1 Specialty Diagnoses / Procedures Referred By Mauro castellanos Referred To Contact BR [facility] Diagnoses Encounter for screening mammogram for malignant neoplasm of breast Dense breast tissue on mammogram Procedures MIGUEL ANGEL SCREENING W HARPAL SCREENING DIGITAL BREAST TOMOSYNTHESIS BI SCREENING MAMMOGRAPHY BI 2-VIEW BREAST INC CAD Jhonna Lopez MD [address] [place] [address] [facility] [address] [place] [address] Referral ID Status Reason Start Date Expiration Date V isits Requested Visits Authorized [id number] Closed Auto-Generated Referral Clearance Not Met - Admin/Flight Reservations Manager /Director Advise to Postpone/Mir edule or Not Proceed Patient Cleared - INN Insurance Found 05/23/2022 03/30/2023 1 1 Summary Purpose Family History No Family History Records FoundNo Family History Records Found Advance Directives No Advanced Directives Records FoundNo Advanced Directives Records Found Additional Source Comments Source Comments (unrecognize d section and content) In the event this informatio n is protected by the Federal Confidentiality of Alcohol and Drug Abuse Patient Records regulations: The Federal rules restrict any use of the information to criminally investigate or prosecute any alcohol or drug abuse patient.[facility] the event this information is protected by the Federal Confidentiality of Alcohol and Drug Abuse Patient Records regulations: The Federal rules restrict any use of the information to criminally investigate or prosecute any alcohol or drug abuse patient.[facility] the event this information is protected by the Federal Confidentiality of Alcohol and Drug Abuse Patient Records regulations: The Federal rules restrict any use of the information to criminally investigate or prosecute any alcohol or drug abuse patient.[facility] the event this information is protected by the Federal Confidentiality of Alcohol and Drug Abuse Patient Records regulations: The Federal rules restrict any use of the information to criminally investigate or prosecute any alcohol or drug abuse patient.[facility] the event this information is protected by the Federal Confidentiality of Alcohol and Drug Abuse Patient Records regulations: The Federal rules restrict any use of the information to criminally investigate or prosecute any alcohol or drug abuse patient.[facility] the event this information is protected by the Federal Confidentiality of Alcohol and Drug Abuse Patient Records regulations: The Federal rules restrict any use of the information to criminally investigate or prosecute any alcohol or drug abuse patient.[facility] the event this information is protected by the Federal Confidentiality of Alcohol and Drug Abuse Patient Records regulations: The Federal rules restrict any use of the information to criminally investigate or prosecute any alcohol or drug abuse patient.[facility] HospitalIn the event this information is protected by the Federal Confidentiality of Alcohol and Drug Abuse Patient Records regulations: The Federal rules restrict any use of the information to criminally investigate or prosecute any alcohol or drug abuse patient.[facility] HospitalIn the event this information is protected by the Federal Confidentiality of Alcohol and Drug Abuse Patient Records regulations: The Federal rules restrict any use of the information to criminally investigate or prosecute any alcohol or drug abuse patient.[facility] the event this information is protected by the Federal Confidentiality of Alcohol and Drug Abuse Patient Records regulations: The Federal rules restrict any use of the information to criminally investigate or prosecute any alcohol or drug abuse patient.[facility] HospitalIn the event this information is protected by the Federal Confidentiality of Alcohol and Drug Abuse Patient Records regulations: The Federal rules restrict any use of the information to criminally investigate or prosecute any alcohol or drug abuse patient.[facility] HospitalIn the event this information is protected by the Federal Confidentiality of Alcohol and Drug Abuse Patient Records regulations: The Federal rules restrict any use of the information to criminally investigate or prosecute any alcohol or drug abuse patient.[facility] HospitalIn the event this information is protected by the Federal Confidentiality of Alcohol and Drug Abuse Patient Records regulations: The Federal rules restrict any use of the information to criminally investigate or prosecute any alcohol or drug abuse patient.[facility] HospitalIn the event this information is protected by the Federal Confidentiality of Alcohol and Drug Abuse Patient Records regulations: The Federal rules restrict any use of the information to criminally investigate or prosecute any alcohol or drug abuse patient.[facility] HospitalIn the event this information is protected by the Federal Confidentiality of Alcohol and Drug Abuse Patient Records regulations: The Federal rules restrict any use of the information to criminally investigate or prosecute any alcohol or drug abuse patient.[facility] HospitalIn the event this information is protected by the Federal Confidentiality of Alcohol and Drug Abuse Patient Records regulations: The Federal rules restrict any use of the information to criminally investigate or prosecute any alcohol or drug abuse patient.[facility] HospitalIn the event this information is protected by the Federal Confidentiality of Alcohol and Drug Abuse Patient Records regulations: The Federal rules restrict any use of the information to criminally investigate or prosecute any alcohol or drug abuse patient.[facility] HospitalIn the event this information is protected by the Federal Confidentiality of Alcohol and Drug Abuse Patient Records regulations: The Federal rules restrict any use of the information to criminally investigate or prosecute any alcohol or drug abuse patient.[facility] HospitalIn the event this information is protected by the Federal Confidentiality of Alcohol and Drug Abuse Patient Records regulations: The Federal rules restrict any use of the information to criminally investigate or prosecute any alcohol or drug abuse patient.[facility] HospitalIn the event this information is protected by the Federal Confidentiality of Alcohol and Drug Abuse Patient Records regulations: The Federal rules restrict any use of the information to criminally investigate or prosecute any alcohol or drug abuse patient.[facility] HospitalIn the event this information is protected by the Federal Confidentiality of Alcohol and Drug Abuse Patient Records regulations: The Federal rules restrict any use of the information to criminally investigate or prosecute any alcohol or drug abuse patient.[facility] Reason for Visit (unrecogniz ed section and content) Specialty Diagnoses / Procedures Referred By Mauro castellanos Referred To Contact GYNECOLOGY Diagnoses Follow up Visit for review of DEXA scan 3 MONTHS FOLLOW UP & DXA RESULTS Procedures 3 MONTHS FOLLOW UP & DXA RESULTS Addison Juarez MD [address] [place] [address] [facility] [address] [address] Referral ID Status Reason Start Date Expiration Date Visits Re quested Visits Authorized [id number] Closed 01/02/2021 01/02/2022 3 3 Reason Onset Date Comments Refill Request 06/23/2021 Reason Comments Appointment Reason Comments Headache migraines several x a month starts with neck pain and then takes approx 2 days before shes back to baseline. Specialty Diagnoses / Procedures Referred By Mauro castellanos Referred To Contact Family Practice / FAMILY MEDICINE Diagnoses Upper back pain upper back pain when taking deep breathe . Appeared after covid at the end of Nov. Procedures EST PATIENT VISIT LEVEL 5 4C EST Self Heather Ribera, LUDWIG.DIVING FISHER [address] [place] [address] Referral ID Status Reason Start Date Expiration Date V isits Requested Visits Authorized [id number] Authorized 02/19/2021 02/19/2022 99 99 Reason Comments Migraine 3 days, last Imitrex 8 pm last night Specialty Diagnoses / Procedures Referred By Contac t Referred To Contact Family Practice / FAMILY MEDICINE Diagnoses Upper back pain upper back pain when taking deep breathe . Appeared after covid at the end of Nov. Procedures EST PATIENT VISIT LEVEL 5 4C MD Mounika Levin Christy, LUDWIG.DIVING FISHER [address] [place] [address] Reason Comments New Patient Specialty Diagnoses / Procedures Referred By Contac t Referred To Contact Diagnoses Snoring Procedures CONSULT TO SLEEP MEDICINE - ADULT NEW PATIENT VISIT LEVEL 5 Adidson Juarez MD [address] [place] [address] Referral ID Status Reason Start Date Expiration Date Visits Requested Visits Authorized [id number] Pending Review PCP Requested Referral 10/12/2020 10/12/2021 1 1 Reason Comments Menstrual Problem missed menses lower r quadrant pain Referral ID Status Reason Start Date Expiration Date V isits Requested Visits Authorized [id number] Authorized 01/02/2021 01/02/2022 3 3 Reason Comments Patient Question Reason Comments Acute Visit Joint swelling- bila teral hands/fingers; no redness/warmth Specialty Diagnoses / Procedures Referred By Contac t Referred To Contact INTERNAL MEDICINE Diagnoses Swollen Finger Procedures REFERRAL TO [facility]ANCIAL COUNSEL[facility] Jason Veliz MD [address] [place] [address] [address] [place] [address] Referral ID Status Reason Start Date Expiration Date V isits Requested Visits Authorized [id number] Closed Financial Clearance Required - [employer] Payor 11/27/2021 03/30/2022 1 1 Reason Comments Telemedicine Specialty Diagnoses / Procedures Referred By Contac t Referred To Contact Family Medicine / FAMILY MEDICINE Diagnoses MED FOLLOW UP Procedures OFFICE/OUTPATIENT ESTABLISHED MOD MDM 30-39 MIN VIDEO PRIMARY EST Heather Merino, LUDWIG.DIVING FISHER [address] [place] [address] Referral ID Status Reason Start Date Expiration Date Visits Re quested Visits Authorized [id number] Closed 12/20/2021 03/30/2022 1 1 Reason Comments Consult Specialty Diagnoses / Procedures Referred By Contact Referred To Contact Endocrinology / ENDOCRINOLOGY Diagnoses Symptomatic premature menopause Procedures CONSULT TO ENDOCRINOLOGY OFFICE/OUTPATIENT [facility] MDM 60-74 MINUTES Edie Kemp MD [address] [place] [address] [facility] [address] [address] Referral ID Status Reason Start Date Expiration Date V isits Requested Visits Authorized [id number] Closed PCP Requested Referral 01/10/2022 03/30/2022 1 1 Reason Onset Date Comments Yearly Exam 04/02/2022 Reason Comments Patient Question Reason Comments Abdominal Pain Right lower quadrant area x5 days; dull ache Specialty Diagnoses / Procedures Referred By Contac t Referred To Contact [facility] Diagnoses Encounter for screening mammogram for malignant neoplasm of breast Dense breast tissue on mammogram Procedures MIGUEL ANGEL SCREENING W HARPAL SCREENING DIGITAL BREAST TOMOSYNTHESIS BI SCREENING MAMMOGRAPHY BI 2-VIEW BREAST INC CAD Johnna Lopez MD [address] [place] [address] [facility] [address] [facility] [place] [address] Referral ID Status Reason Start Date Expiration Date V isits Requested Visits Authorized [id number] Closed Auto-Generated Referral Clearance Not Met - Admin/Flight Reservations Manager /Director Advise to Postpone/Mir edule or Not Proceed Patient Cleared - INN Insurance Found 05/23/2022 03/30/2023 1 1 Reason Comments Radiology US Specialty Diagnoses / Procedures Referred By Contac t Referred To Contact [facility] Diagnoses Abnormal uterine bleeding Procedures US FEMALE PELVIS TRANSVAG US TRANSVAGINAL Johnna Lopez MD [address] [place] [address] [place] [address] Referral ID Status Reason Start Date Expiration Date V isits Requested Visits Authorized [id number] Closed Auto-Generate d Referral 12/24/2022 01/23/2024 1 1 Care Teams (unrecognized sec tion and content) Supervisor [employer] Relationship Specialty Start Date End Date Heather Ribera, PATIENT ACCESS COORDINATOR.DIVING FISHER [address] [place] [address] PCP - General Family Practice 10/12/20 Supervisor [employer] Relationship Specialty Start Date End Date Heather Ribera, PATIENT ACCESS COORDINATOR.DIVING FISHER [address] [place] [address] PCP - General Family Practice 10/12/20 Supervisor [employer] Relationship Specialty Start Date End Date Heather Ribera, PATIENT ACCESS COORDINATOR.DIVING FISHER [address] [place] [address] PCP - General Family Practice 10/12/20 Supervisor [employer] Relationship Specialty Start Date End Date Heather Ribera, PATIENT ACCESS COORDINATOR.DIVING FISHER [address] [place] [address] PCP - General Family Practice 10/12/20 Supervisor [employer] Relationship Specialty Start Date End Date Heather Ribera, PATIENT ACCESS COORDINATOR.DIVING FISHER [address] [place] [address] PCP - General Family Practice 10/12/20 Supervisor [employer] Relationship Specialty Start Date End Date Heather Ribera, PATIENT ACCESS COORDINATOR.DIVING FISHER [address] [place] [address] PCP - General Family Practice 10/12/20 Supervisor [employer] Relationship Specialty Start Date End Date Heather Ribera, PATIENT ACCESS COORDINATOR.DIVING FISHER [address] [place] [address] PCP - General Family Practice 10/12/20 Supervisor [employer] Relationship Specialty Start Date End Date Heather Ribera, PATIENT ACCESS COORDINATOR.DIVING FISHER [address] [place] [address] PCP - General Family Practice 10/12/20 Supervisor [employer] Relationship Specialty Start Date End Date Heather Ribera, PATIENT ACCESS COORDINATOR.DIVING FISHER [address] [place] [address] PCP - General Family Practice 10/12/20 Supervisor [employer] Relationship Specialty Start Date End Date Heather Ribera, PATIENT ACCESS COORDINATOR.DIVING FISHER [address] [place] [address] PCP - General Family Practice 10/12/20 Supervisor [employer] Relationship Specialty Start Date End Date Heather Ribera, PATIENT ACCESS COORDINATOR.DIVING FISHER [address] [place] [address] PCP - General Family Medicine 10/12/20 Supervisor [employer] Relationship Specialty Start Date End Date Heather Ribera, PATIENT ACCESS COORDINATOR.DIVING FISHER [address] [place] [address] PCP - General Family Medicine 10/12/20 Supervisor [employer] Relationship Specialty Start Date End Date Heather Ribera, PATIENT ACCESS COORDINATOR.DIVING FISHER [address] [place] [address] PCP - General Family Medicine 10/12/20 Supervisor [employer] Relationship Specialty Start Date End Date Heather Ribera, PATIENT ACCESS COORDINATOR.DIVING FISHER [address] [place] [address] PCP - General Family Medicine 10/12/20 Supervisor [employer] Relationship Specialty Start Date End Date Heather Ribera, PATIENT ACCESS COORDINATOR.DIVING FISHER [address] [place] [address] PCP - General Family Medicine 10/12/20 Supervisor [employer] Relationship Specialty Start Date End Date Heather Ribera, PATIENT ACCESS COORDINATOR.DIVING FISHER [address] [place] [address] PCP - General Family Medicine 10/12/20 Supervisor [employer] Relationship Specialty Start Date End Date Heather Ribera, PATIENT ACCESS COORDINATOR.DIVING FISHER [address] [place] [address] PCP - General Family Medicine 10/12/20 Supervisor [employer] Relationship Specialty Start Date End Date Heather Ribera APRN.DIVING FISHER [address] [place] [address] PCP - General Family Medicine 10/12/20 Supervisor [employer] Relationship Specialty Start Date End Date Heather Ribera APRN.DIVING FISHER [address] [place] [address] PCP - General Family Medicine 10/12/20 INFORMATION SOURCE (unrecogn ized section and content) DATE CREATED AUTHOR AUTHOR'S PAOLO AGUIRRE 01/16/2023 [facility] FOR RECORDS PERTAINING TO PATIENTS WHO ARE OR HAVE BEEN ENROLLED IN A CHEMICAL DEPENDENCY/SUBSTANCEABUSE PROGRAM, SOME INFORMATION MAY BE OMITTED. This clinical summary was aggregated from multiple sources. Caution should be exercised in using it in the provision of clinical care. This summary normalizes information from multiple sources, and as a consequence, information in this document may materially change the coding, format and clinical context of patient data. In addition, data may be omitted in some cases. CLINICAL DECISIONS SHOULD BE BASED ON THE PRIMARY CLINICAL RECORDS. [facility]. provides no warranty or guarantee of the accuracy or completeness of information in this document.
== END | disposition home or self-care (01) ==
LOC: US 09:01
PROVIDERS: PCP Nurse Practitioner Family; Referring Provider Nurse Practitioner Family; Visit Provider Nurse Practitioner Family
DX: R10.31 Right lower quadrant pain (principal)
CPT/HCPCS: 76700

== ENCOUNTER → 2023-10-22 | Outpatient (CLI) | payer BC, SELFPAY ==
--- NOTE | 2023-10-22 11:13 | RAD_ITS ---
STUDY: X-RAY - LEFT WRIST REASON FOR EXAM: Female, 43 years old. PAIN TECHNIQUE: 3 view(s) of the wrist were obtained. COMPARISON: None. FINDINGS: Normal visualized distal radius and ulna. Normal radiocarpal articulation. Normal distal radioulnar articulation. Normal carpal bones. Normal carpal articulations. Normal carpometacarpal articulation of the thumb. Normal second through fifth carpometacarpal articulations. Normal visualized metacarpal bones. The soft tissue structures are unremarkable. RAD/Wrist min 3 Views IMPRESSION: Normal x-ray examination of the wrist. Electronically Signed: Raudel Zimmerman MD at 14:12 EDT ,
== END | disposition home or self-care (01) ==
LOC: MTRAD 11:11
PROVIDERS: PCP Nurse Practitioner Family; Referring Provider Nurse Practitioner Family; Visit Provider Nurse Practitioner Family
DX: M25.532 Pain in left wrist (principal)
CPT/HCPCS: 73110

== ENCOUNTER 2023-12-25 10:30 | Outpatient (RCR) | payer BC, SELFPAY ==
--- NOTE | 2023-12-25 10:51 | HP.OTEVAL ---
Patient's Visit Information Visit Information Visit Information: ASHLEY JEAN-BAPTISTE is a 43 year old F, referred to Occupational Therapy by Dr. Barbara Ratliff MD, with a diagnosis of left ECU tendonitis. Date of Evaluation: 12/02/23 Occupational Therapist: Angelica Donaldson, AMANR/[place]uleman, CHT Subjective Subjective: This 43 year old female was seen for OT eval with dx of Left ECU tendonitis. Pt states she is not sure what had happened. States pain had gradully increased over a span of 4-5 months and pain was going down the side of her hand into her LF. pt States she had a swollen area over her ulna and with pain level she was limited with daily tasks. pt went to see confirmed tendonitis. Pt was placed in clam shell orthosis, and given cortisone shot. pt having discomfort from orthosis on radial side of wrist today. States she is trying her best not to move her forearm as this increases pain. pt is right handed. pt states she did notice with reaching for a towel her tendon was snapping over her ulna causing increase pain. pt would like to return to her PLOF. Pain left wrist: Current Pain Intensity: 0 Pain Intensity Range: 3 ROM ROM Comments: right wrist ROM is WNL left painful will test later date Strength Strength Comments: will test later date Sensation Sensation Comments: denies Quick DASH-Disab of Arm,Shoulder& Hand Quick DASH Score: 45.4525 Goals Goal:: pt will dem a increase in left installer interior assemblies to 45# or greater to increase pts IND with ADLs by d/c Goal:: pt will demo full left forearm supination equal to non affected side by d.c pt will demo writs ROM 60/55 with no pain to return pt to her PLOF. Goal:: pt will report no pain greater than 1/10 with use of left UE with ADLs by in 8 weeks Goal:: Pt will demo understanding of joint protection and ergonomics when performing BADLs and IADLs by d/c Pt will demo understanding of adaptive Equipment use to decrease stress on joints to allow pt to perform BADSL and IADLS at BIANCA level. Goal:: pt will demo understanding of use of orthosis and precautions by end of 1st session. Rehabilitation General Assessment: pt arrives with positive symptoms of ECU tendonitis demo need of skilled OT services 1-2x week for 8 weeks to ensure pt returns to her PLOF. Today therapist ed. pt on orthosis use, precautions as well as adjusting radial side of orthosis to increase comfort and fit. Pt ed. to avoid tasks that require supination activities as the orthosis is to restrict this motion. pt demo understanding and agree to POC. Rehabilitation Potential: Good Anticipated Interventions Anticipated Interventions: Strengthening, Triggerpoint Release, Modalities, Orthoses, Joint Protection/Energy Conservation, Ergonomic Education, Education re assistive Equipment, Education re Diagnosis and Home Program Visit Plan Frequency: 1-2x /Week Duration: 6 Weeks General Plan: ed. on wrist ergo to avoid stress on tendons ed. on home and task modification when pain level resides initiate of ROM, isometric/eccentric/ PRE to ashutosh. TEXT: Thank you for the opportunity to evaluate your patient. For Medicare and Medicare HMO plans, please review the plan of care and approve it. It will need to be FAXED BACK to us at [phone] for Medicare purposes. Please let me know if there are questions or concerns regarding this plan of care. Physician Signature: Date:
--- NOTE | 2024-05-28 11:25 | HP.OT.NRP ---
Patient Information Patient Information: ASHLEY JEAN-BAPTISTE was seen in my office for initial evaluation on 12/02/23. The following Plan of Care was established for this patient: POC Established Initial Frequency: 1-2x /Week Initial Duration: 6 Weeks Anticipated Interventions Anticipated Interventions: Strengthening, Triggerpoint Release, Modalities, Orthoses, Joint Protection/Energy Conservation, Ergonomic Education, Education re assistive Equipment, Education re Diagnosis and Home Program Last Seen Last Seen: This patient was last seen in our office 12/25/23. Pertinent comments regarding their Occupational therapy will appear below: pt was seen 2 OT sessions stated no pain and doing well. Due to time lapse in services pt is d/c. At this point I will be discontinuing this patient from occupational therapy. I would be happy to see this patient again in the future if found appropriate by the physician. Thank you! Angelica Donaldson, OTR/L, CHT
== END 2023-12-25 19:00 | disposition home or self-care (01) ==
LOC: OT 10:30
PROVIDERS: PCP Nurse Practitioner Family; Referring Provider Orthopaedic Surgery Hand Surgery; Visit Provider Orthopaedic Surgery Hand Surgery
DX: M77.9 Enthesopathy, unspecified (principal)
CPT/HCPCS: 97166; 97530